=== PATIENT | male | born 2000 | race Caucasian/White ===

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

== ENCOUNTER → 2021-03-11 12:56 | Outpatient (CLI) | payer OTHER, SELFPAY | PROVIDERS: Visit Provider Nurse Practitioner Family | DX: E11.9 Type 2 diabetes mellitus without complications (principal); Z79.4 Long term (current) use of insulin | CPT/HCPCS: 83036 ==

== ENCOUNTER → 2021-06-24 14:17 | Outpatient (CLI) | payer OTHER, SELFPAY ==
[2021-06-24 14:37] LABS: Basophils # 0.1 K/mm3 (0-0.2); Basophils % 0.9 % (0.1-2.0); Eosinophils # 0.1 K/mm3 (0.0-0.4); Hematocrit 47.4 % (42.0-52.0); Hemoglobin 15.5 g/dL (14.1-18.0); Lymphocytes % 37.5 % (10-50); Mean Corpuscular HGB Conc 32.8 g/dL (31.8-35.4); Mean Corpuscular Volume 88.4 fl (80-94); Mean Platelet Volume 9.4 fl (7.4-10.4); Monocytes # 0.2 K/mm3 (0.1-1.0); Monocytes % 4.4 % (1.7-9.3); Neutrophils % 55.3 % (37.0-80.0); Platelet Count 406 K/mm3 (142-424); Red Blood Count 5.36 M/mm3 (4.60-6.20); Red Cell Distribution Width 12.8 % (11.5-17.5); White Blood Count 5.4 K/mm3 (4.5-13.0)
[2021-06-24 14:46] LABS: Chloride 104 mmol/L (98-107)
[2021-06-24 14:47] LABS: Potassium 4.1 mmoL/L (3.5-5.1); Sodium 137 mmol/L (136-145)
[2021-06-24 14:49] LABS: Alanine Aminotransferase 36 U/L (12-78); Anion Gap 17.1 mEq/L (5-15); Aspartate Amino Transferase 40 U/L (17-59); Blood Urea Nitrogen 13 mg/dl (9-20); Carbon Dioxide 20 mmol/L (22.0-30.0); Estimated Glomerular Filt Rate 212 ml/min (>60); GFR (African American) 257 ML/MIN (>60)
[2021-06-24 14:50] LABS: Albumin/Globulin Ratio 1.4 (1.1-1.8); Alkaline Phosphatase 144 U/L (38-126); Bilirubin,Total 0.3 mg/dl (0.2-1.3); Calcium 9.5 mg/dl (8.4-10.2); Cholesterol 248 mg/dl (140-200); Globulin 2.8 g/dL (1.3-3.2); Glucose 308 mg/dl (74-100); HDL Cholesterol 50 mg/dl (40-60); Total Protein,Serum 6.8 g/dl (6.3-8.2); Triglycerides 209 mg/dl (30-150); VLDL Cholesterol 42 mg/dL (0-40)
[2021-06-24 15:01] LABS: Direct LDL Cholesterol 158.82 mg/dL (100-129)
[2021-06-24 15:07] LABS: T4 (Thyroxine) 6.9 ug/dl (5.53-11.0)
[2021-06-24 15:21] LABS: Thyroid Stimulating Hormone 3.27 uIU/mL (0.465-4.68)
[2021-06-24 15:54] LABS: Hemoglobin A1C > 14.0 % (4.0-6.0)
== END ==
PROVIDERS: Visit Provider Nurse Practitioner Family
DX: E10.65 Type 1 diabetes mellitus with hyperglycemia (principal); I10 Essential (primary) hypertension; E66.3 Overweight; Z68.33 Body mass index [BMI] 33.0-33.9, adult; Z79.4 Long term (current) use of insulin
CPT/HCPCS: 80053; 80061; 82306; 83036; 84436; 84443; 85025

== ENCOUNTER → 2021-07-10 12:58 | Outpatient (CLI) | payer OTHER, SELFPAY | PROVIDERS: Visit Provider Nurse Practitioner Family | DX: Z20.822 Contact with and (suspected) exposure to COVID-19 (principal) | CPT/HCPCS: C9803; U0003; U0005 ==

== ENCOUNTER → 2021-08-10 12:48 | Outpatient (CLI) | payer OTHER, SELFPAY | PROVIDERS: PCP Nurse Practitioner Family; Visit Provider Nurse Practitioner | DX: Z20.822 Contact with and (suspected) exposure to COVID-19 (principal) | CPT/HCPCS: C9803; U0003; U0005 ==

== ENCOUNTER 2021-08-20 17:13 | Emergency (ER) | payer OTHER, SELFPAY ==
[2021-08-20 17:29] VITALS: BP 0/0; PULSE 0; RESP 0; TEMP -17.7; TEMP 0; O2SAT 0
== END 2021-08-20 17:30 | disposition home or self-care (01) ==
PROVIDERS: Emergency Provider Nurse Practitioner Family; PCP Emergency Medicine
DX: Z53.21 Procedure and treatment not carried out due to patient leaving prior to being seen by health care provider (principal)

== ENCOUNTER → 2021-08-20 17:29 | Outpatient (CLI) | payer OTHER, SELFPAY | PROVIDERS: PCP Nurse Practitioner Family; Visit Provider Nurse Practitioner Family | DX: U07.1 COVID-19 (principal) | CPT/HCPCS: C9803; U0003; U0005 ==

== ENCOUNTER → 2021-10-21 11:43 | Outpatient (CLI) | payer BC, SELFPAY ==
[2021-10-22 09:39] LABS: Covid-19 Nasal PCR Sendout Lex NOT DETECTED
== END ==
PROVIDERS: PCP Nurse Practitioner Family; Visit Provider Nurse Practitioner
DX: Z20.822 Contact with and (suspected) exposure to COVID-19 (principal)
CPT/HCPCS: C9803; U0004; U0005

== ENCOUNTER 2021-10-31 11:30 | Emergency (ER) | payer OTHER, SELFPAY ==
[2021-10-31 11:38] VITALS: BP 120/84; PULSE 107; RESP 16; TEMP 36.6; O2SAT 99; BMI 33.4
[2021-10-31 11:45] VITALS: BP 120/84; PULSE 107; RESP 16; TEMP 36.6; O2SAT 99; BMI 33.4
--- NOTE | 2021-10-31 12:06 | XR_ITS ---
PROCEDURE INFORMATION: Exam: XR Lumbosacral Spine Exam date and time: 10/31/2021 12:06 PM Age: 21 years old Clinical indication: Low back pain TECHNIQUE: Imaging protocol: XR of the lumbosacral spine. Views: 2 or 3 views. COMPARISON: CR [id number] XR lumbar spine min 4V 12/26/2018 7:46 AM FINDINGS: Bones/joints: Mild scoliosis, concave to the right. Hypoplastic 12th ribs. Mild multilevel spondylosis. Visualized vertebral body heights maintained. Soft tissues: Unremarkable. Gastrointestinal tract: Moderate colonic feces. IMPRESSION: No evidence of an acute fracture. Otherwise, as above.
--- NOTE | 2021-10-31 12:21 | HMH.EDUTC ---
[facility] [place] Clinical Impression: Lumbar strain Qualifiers: Encounter type: initial encounter Qualified Code(s): S39.012A - Strain of muscle, fascia and tendon of lower back, initial encounter Disposition: Home, Self-Care Condition on Discharge: Good Instructions: Low Back Pain (Alternative Therapy), DI for Muscle Strain, DI for Back Strain or Sprain Additional Instructions: rest Ice with cold pack for 20 minutes remove may repeat for comfort every hour Ibuprofen every 6 hours as needed for pain or inflammation. If needs something more you can take Tylenol every 4 hours as needed as long as her primary care has told he was okayed for you to take both. Follow-up immediately if new or worsening symptoms or no noticeable improvement over the next 3-5 days. follow up with pcp Referrals: Chidi Ozuna APRN [Primary Care Provider] - Forms: Work/School Release Time of Disposition: 12:42 Medical Decision Making - Misael Inquiry Pt receiving controlled substance: No Vital Signs: 10/31/21 11:38 10/31/21 11:45 Temperature 97.9 F 97.9 F Temperature Source Oral Oral Pulse Rate [Radial] 107 H 107 H Respiratory Rate 16 16 Blood Pressure [Right Arm] 120/84 120/84 Blood Pressure Mean [Right Arm] 96 96 Blood Pressure Source [Right Arm] Automatic Cuff Blood Pressure Position [Right Arm] Sitting Sitting 02 Sat by Pulse Oximetry 99 99 Oxygen Delivery Method Room Air Room Air Orders (Tests/Meds): ED MEDICATIONS Discontinued Medications Generic Name Dose Route Start Last Admin Trade Name Dougieq PRN Reason Stop Dose Admin Dexamethasone Sodium Phosphate 4 mg 10/31/21 12:31 10/31/21 12:35 Dexamethasone 4mg/Ml 1ml Vial IM 10/31/21 12:32 4 mg ONCE ONE Administration [facility] [place] HPI - General Chief complaint: Urgent Treatment Center Stated complaint: back pain Time Seen by Provider: 10/31/21 12:21 Mode of Arrival: Ambulatory Source of Information: Patient Limitations: No Limitations Description of Symptoms (Recalled from Triage Doc. 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 PT STATES PAIN RADIATES DOWN LEGS INTERMITTENTLY. DENIES ANY LOSS OF CONTROL BOWEL OR BLADDER. CPTA IBUPROFEN 400MG THIS AM HEENT Symptoms (Recalled from RN notes): No Resp Symptoms (Recalled from RN notes): No Skin Symptoms (Recalled from RN notes): No MS Symptoms (Recalled from RN notes): Yes Functional Status (Recalled from RN notes): WNL - History of Present Illness Provider Complaint: 21 yr old male presents for low back pain for 2 weeks. Pt states he was carrying a dresser up stairs and states it was caught and he tuged hard on it and felt something pop in back. pt states pain has increased. no loss of bowel or bladder. - Related Data Home Medications Medication Instructions Recorded Confirmed blood sugar diagnostic See Rx Instructions .ROUTE 02/07/20 10/14/21 .MEDSUPPLY #10 each Previous Rx's Medication Instructions Recorded Albuterol Sulfate [Albuterol HFA 1 - 2 puffs IH Q4-6H PRN #1 inh 12/08/19 Inhaler] Inhaler, Assist Devices [Space 1 each MC Q4-6H 14 Days #1 spacer 12/08/19 Chamber Plus] blood sugar diagnostic See Rx Instructions .ROUTE 02/07/20 .MEDSUPPLY #10 each aspirin 81 mg tablet,delayed 81 mg PO DAILY #30 tab 03/12/20 release blood-glucose meter,continuous See Rx Instructions .ROUTE 07/16/20 .MEDSUPPLY #1 each lancets 30 gauge See Rx Instructions .ROUTE 10/15/20 .COMPLEX #100 each pen needle, diabetic 31 gauge x See Rx Instructions .ROUTE 10/17/20 5/16 .MEDSUPPLY #1200 each blood-glucose sensor See Rx Instructions .ROUTE 08/31/21 .COMPLEX #3 each blood-glucose transmitter See Rx Instructions .ROUTE 08/31/21 .COMPLEX #1 each insulin degludec 100 unit/mL (3 52 unit SQ DAILY #15 ml 08/31/21 mL) subcutaneous pen lisinopril 2.5 mg tablet 2.5 mg PO DAILY #90 tab
[2021-10-31 12:38] VITALS: BP 120/84; PULSE 107; RESP 16; TEMP 36.6; O2SAT 99
== END 2021-10-31 12:49 | disposition home or self-care (01) ==
PROVIDERS: Emergency Provider Nurse Practitioner Family; PCP Nurse Practitioner Family
DX: S39.012A Strain of muscle, fascia and tendon of lower back, initial encounter (principal); X50.0XXA Overexertion from strenuous movement or load, initial encounter; Y92.69 Other specified industrial and construction area as the place of occurrence of the external cause; Y99.0 Civilian activity done for income or pay
CPT/HCPCS: 72100; 96372; 99202; G0463

== ENCOUNTER 2021-11-07 10:05 | Emergency (ER) | payer OTHER, SELFPAY ==
[2021-11-07 11:30] VITALS: BP 145/85; PULSE 95; RESP 18; TEMP 36.5; O2SAT 100; BMI 33.4
--- NOTE | 2021-11-07 11:54 | HMH.EDUTC ---
[facility] [place] Clinical Impression: Hyperglycemia Low back pain Qualifiers: Chronicity: acute Back pain laterality: bilateral Sciatica presence: with sciatica Sciatica laterality: sciatica of right side Qualified Code(s): M54.41 - Lumbago with sciatica, right side Disposition: Still a Patient Condition on Discharge: Fair Referrals: Chidi Ozuna APRN [Primary Care Provider] - Time of Disposition: 13:08 Medical Decision Making - Medical Records Medical records reviewed: No: I reviewed the patient's medical records. - Misael Inquiry Pt receiving controlled substance: No Vital Signs: 11/07/21 11:30 Temperature 97.7 F Temperature Source Oral Pulse Rate [Left] 95 H Respiratory Rate 18 Blood Pressure [Right Arm] 145/85 H Blood Pressure Mean [Right Arm] 105 02 Sat by Pulse Oximetry 100 - Lab Data Lab results reviewed: Yes: I reviewed the patient's lab results. Medical Decision Narrative: His blood glucose here today is 590. Considering this and that his back pain is worsening instead of getting better, he was transferred to the ER for further evaluation. [facility] [place] HPI - General Stated complaint: WC 11/01 back pain Time Seen by Provider: 11/07/21 12:00 Mode of Arrival: Ambulatory Source of Information: Patient Limitations: No Limitations Description of Symptoms (Recalled from Triage Doc. by RN): pt injured his back possibly at work a little over a week ago. pt states he saw Chidi last week and received a steroid injection that helped for about three days. pt reports Chidi told him if he wasn't feeling better to come back in for an MRI. HEENT Symptoms (Recalled from RN notes): No Resp Symptoms (Recalled from RN notes): No Skin Symptoms (Recalled from RN notes): No MS Symptoms (Recalled from RN notes): Yes Functional Status (Recalled from RN notes): wnl - History of Present Illness Provider Complaint: He is back today with woresening low back pain. He originally hurt his back at work 4 days ago. He came here then and received steroids. He states that he is worse instead of better. He was told to f/u for a ct scan or mri if he wasnt getting better. He is a type 1 diabetic. - Related Data Home Medications Medication Instructions Recorded Confirmed blood sugar diagnostic See Rx Instructions .ROUTE 02/07/20 10/14/21 .MEDSUPPLY #10 each Previous Rx's Medication Instructions Recorded Albuterol Sulfate [Albuterol HFA 1 - 2 puffs IH Q4-6H PRN #1 inh 12/08/19 Inhaler] Inhaler, Assist Devices [Space 1 each MC Q4-6H 14 Days #1 spacer 12/08/19 Chamber Plus] blood sugar diagnostic See Rx Instructions .ROUTE 02/07/20 .MEDSUPPLY #10 each aspirin 81 mg tablet,delayed 81 mg PO DAILY #30 tab 03/12/20 release blood-glucose meter,continuous See Rx Instructions .ROUTE 07/16/20 .MEDSUPPLY #1 each lancets 30 gauge See Rx Instructions .ROUTE 10/15/20 .COMPLEX #100 each pen needle, diabetic 31 gauge x See Rx Instructions .ROUTE 10/17/2001/25 .MEDSUPPLY #1200 each blood-glucose sensor See Rx Instructions .ROUTE 08/31/21 .COMPLEX #3 each blood-glucose transmitter See Rx Instructions .ROUTE 08/31/21 .COMPLEX #1 each insulin degludec 100 unit/mL (3 52 unit SQ DAILY #15 ml 08/31/21 mL) subcutaneous pen lisinopril 2.5 mg tablet 2.5 mg PO DAILY #90 tab 08/31/21 insulin aspart 10 unit SQ ACHS 30 Days #15 ml 09/25/21 (niacinamide)(U-100) 100 unit/mL(3 mL) subcutaneous pen Allergies Allergy/AdvReac Type Severity Reaction Status Date / Time No Known Allergies Allergy Verified 10/14/21 14:34 - Worker's Comp Is this a Worker's Comp case?: No [facility] History - Hepatitis A Screen Drug use history?: No High risk sexual behaviors?: No History of sexually transmitted infection?: No Currently employed?: No Childcare worker?: No Do you have indoor plumbing?: Yes Do you have electricity?: Yes Attestation statement:: This patient has been screened for Hepatitis A risk factors.
[2021-11-07 13:07] VITALS: BP 133/93; PULSE 98; TEMP 36.8; O2SAT 99
[2021-11-07 13:20] VITALS: BP 139/90; PULSE 110; RESP 18; TEMP 36.8; O2SAT 97; BMI 33.4
--- NOTE | 2021-11-07 13:38 | HMH.ITSTN ---
lumbar CT came across cancelled from ER so confirmed and not done
--- NOTE | 2021-11-07 13:42 | HMH.EDBACK ---
ED Disposition Clinical Impression: Hyperglycemia Low back pain Qualifiers: Chronicity: acute Back pain laterality: bilateral Sciatica presence: with sciatica Sciatica laterality: sciatica of right side Qualified Code(s): M54.41 - Lumbago with sciatica, right side Sciatica Qualifiers: Laterality: left Qualified Code(s): M54.32 - Sciatica, left side Disposition: Home, Self-Care Condition on Discharge: Good Instructions: DI for Low Back Pain Prescriptions: Ibuprofen [Ibuprofen 800mg Tablet] 800 mg PO TIDP PRN #20 tab PRN Reason: Moderate Pain Transmission Status: Pending to [facility] methocarbamoL [Methocarbamol 500mg Tablet] 1,000 mg PO TID 10 Days #60 tab Transmission Status: Pending to [facility] Referrals: Chidi Ozuna APRN [Primary Care Provider] - - Critical Care Critical Care Time: No Attestation: On 11/07/21, the high probability of a clinically significant, sudden or life threatening deterioration of the following system(s) required my full and direct attention, intervention and personal management. The time I documented below is in addition to time spent performing reported procedures but includes the following listed in this critical care notation. Medical Decision Making - Medical Records Medical records reviewed: Yes: I reviewed the patient's medical records. - Misael Inquiry Pt receiving controlled substance: No Vital Signs: 11/07/21 11:30 11/07/21 13:07 11/07/21 13:20 Temperature 97.7 F 98.3 F 98.3 F Temperature Source Oral Oral Pulse Rate 98 H Pulse Rate [Left] 95 H 110 H Respiratory Rate 18 18 Blood Pressure 133/93 H Blood Pressure [Right Arm] 145/85 H 139/90 Blood Pressure Mean [Right Arm] 105 106 Blood Pressure Source [Right Arm] Automatic Cuff Blood Pressure Position [Right Arm] Sitting 02 Sat by Pulse Oximetry 100 99 97 Oxygen Delivery Method Room Air Room Air Orders (Tests/Meds): ED MEDICATIONS Discontinued Medications Generic Name Dose Route Start Last Admin Trade Name Freq PRN Reason Stop Dose Admin Ketorolac Tromethamine 30 mg 11/07/21 13:27 Ketorolac 30mg/Ml Vial IM 11/07/21 13:28 ONCE ONE Methocarbamol 1,000 mg 11/07/21 13:27 Methocarbamol 500mg Tablet PO 11/07/21 13:28 ONCE STA Medical Decision Narrative: 21-year-old male presenting with some lower back pain elevated blood sugar. Findings are consistent with lumbar strain sciatica. Patient has no midline tenderness or red flag symptoms. Not IV drug user. No fevers. Patient blood sugar did improve he self-administered his medication prior to being transferred over to the emergency department. Patient be placed on a short course of medications. Needs a follow-up with PCP in 48 hours. Given strict return precautions. Verbalized understanding. Back Pain HPI - General Chief Complaint: Back Pain/Injury Stated Complaint: WC 11/01 back pain Time Seen by Provider: 11/07/21 12:00 Mode of Arrival: Ambulatory Source of Information: Patient Limitations: No Limitations Description of Symptoms (Recalled from ER Triage Doc. by RN): Pt sent from [facility] r/t back pain - History of Present Illness HPI Narrative: 21-year-old male presenting with some left lower back pain. Patient states that he has had this for the last 4 days when he was lifting something at work. He had some sharp pain in the left lateral area that is radiating down his leg. Denies any direct trauma. Is worse when he changes positions. He has not been taking anything for the pain. He denies any dysuria or hematuria. No incontinence. Patient was sent over from [facility] because he had elevated blood sugar. The patient states that he drank a regular Mountain Dew right before they checked his blood sugar however. He is not have any headache or change in vision. No focal weakness. No chest pain or shortness of breath. No abdominal pain or vomiting. - Related Data [place]
[2021-11-07 13:53] LABS: POC Glucose,Bedside 377 (70-110)
[2021-11-07 14:32] VITALS: BP 138/88; PULSE 98; RESP 18; TEMP 36.8; O2SAT 99
== END 2021-11-07 14:34 | disposition home or self-care (01) ==
LOC: UTC 13:05 → ER 13:07
PROVIDERS: Emergency Provider Nurse Practitioner Family; PCP Nurse Practitioner Family
DX: M54.42 Lumbago with sciatica, left side (principal); X50.0XXA Overexertion from strenuous movement or load, initial encounter; Y92.69 Other specified industrial and construction area as the place of occurrence of the external cause; Y99.0 Civilian activity done for income or pay; E10.65 Type 1 diabetes mellitus with hyperglycemia; I10 Essential (primary) hypertension
CPT/HCPCS: 82962; 96372; 99281; 99283

== ENCOUNTER 2022-01-09 16:53 | Emergency (ER) | payer OTHER, SELFPAY ==
[2022-01-09 17:05] VITALS: BP 119/86; PULSE 86; RESP 18; TEMP 36.8; O2SAT 100; BMI 33.6
--- NOTE | 2022-01-09 17:24 | HMH.EDUTC ---
[facility] [place] Disposition Clinical Impression: Ingrowing toenail with infection Disposition: Home, Self-Care Condition on Discharge: Good Instructions: DI for Infected Ingrown Toenail, Ingrown Toenail Additional Instructions: Take antibiotics as prescribed Soak foot in warm water and epson salt and pat dry and apply topical cream three times daily Follow up with Family Doctor call Tuesday and make appointment Return if needed Straight to ER if any life threatening symptoms Prescriptions: cephALEXin [cephALEXin 500mg capsule*] 500 mg PO QID 10 Days #40 cap Transmission Status: Pending to [id number] Mupirocin 1 applicatio TP TID 10 Days #10 gm Transmission Status: Pending to [id number] Referrals: Chidi Ozuna APRN [Primary Care Provider] - As needed Time of Disposition: 17:34 Medical Decision Making - Misael Inquiry Pt receiving controlled substance: No Misael was queried for this patient: No Vital Signs: 01/09/22 17:05 Temperature 98.3 F Temperature Source Oral Pulse Rate [Right Brachial] 86 Respiratory Rate 18 Blood Pressure [Right Arm] 119/86 Blood Pressure Mean [Right Arm] 97 Blood Pressure Source [Right Arm] Automatic Cuff Blood Pressure Position [Right Arm] Sitting 02 Sat by Pulse Oximetry 100 Oxygen Delivery Method Room Air [facility] [place] HPI - General Stated complaint: spot on left foot Time Seen by Provider: 01/09/22 17:24 Mode of Arrival: Ambulatory Source of Information: Patient Limitations: No Limitations Description of Symptoms (Recalled from Triage Doc. by RN): PATIENT C/O INGROWN TOE NAIL TO LEFT GREAT TOE X 3 WEEKS HEENT Symptoms (Recalled from RN notes): No Resp Symptoms (Recalled from RN notes): No Skin Symptoms (Recalled from RN notes): Yes MS Symptoms (Recalled from RN notes): No Functional Status (Recalled from RN notes): WNL - History of Present Illness Provider Complaint: Patient states that he has had an ingrown toenail on his left great toe for about 3 weeks that is now red and swollen States that he has been soaking it but not had any improvement and now it is sore and red so he came in State that he is a diabetic and worried about infection - Related Data Home Medications Medication Instructions Recorded Confirmed blood sugar diagnostic See Rx Instructions .ROUTE 02/07/20 10/14/21 .MEDSUPPLY #10 each Previous Rx's Medication Instructions Recorded Albuterol Sulfate [Albuterol HFA 1 - 2 puffs IH Q4-6H PRN #1 inh 12/08/19 Inhaler] Inhaler, Assist Devices [Space 1 each MC Q4-6H 14 Days #1 spacer 12/08/19 Chamber Plus] blood sugar diagnostic See Rx Instructions .ROUTE 02/07/20 .MEDSUPPLY #10 each aspirin 81 mg tablet,delayed 81 mg PO DAILY #30 tab 03/12/20 release blood-glucose meter,continuous See Rx Instructions .ROUTE 07/16/20 .MEDSUPPLY #1 each lancets 30 gauge See Rx Instructions .ROUTE 10/15/20 .COMPLEX #100 each pen needle, diabetic 31 gauge x See Rx Instructions .ROUTE 10/17/2001/25 .MEDSUPPLY #1200 each blood-glucose sensor See Rx Instructions .ROUTE 08/31/21 .COMPLEX #3 each blood-glucose transmitter See Rx Instructions .ROUTE 08/31/21 .COMPLEX #1 each insulin degludec 100 unit/mL (3 52 unit SQ DAILY #15 ml 08/31/21 mL) subcutaneous pen lisinopril 2.5 mg tablet 2.5 mg PO DAILY #90 tab 08/31/21 Ibuprofen [Ibuprofen 800mg 800 mg PO TIDP PRN #20 tab 11/07/21 Tablet] methocarbamoL [Methocarbamol 500mg 1,000 mg PO TID 10 Days #60 tab 11/07/21 Tablet] insulin aspart 10 unit SQ ACHS 30 Days #15 ml 11/17/21 (niacinamide)(U-100) 100 unit/mL(3 mL) subcutaneous pen Mupirocin 1 applicatio TP TID 10 Days #10 gm 01/09/22 cephALEXin [cephALEXin 500mg 500 mg PO QID 10 Days #40 cap 01/09/22 capsule*] Allergies Allergy/AdvReac Type Severity Reaction Status Date / Time No Known Allergies Allergy Verified 10/14/21 14:34 - Worker's Comp Is this a Worker's Comp case?: No [facility] History - Hepatitis A
[2022-01-09 17:35] VITALS: BP 119/86; PULSE 86; RESP 18; TEMP 36.8; O2SAT 100
== END 2022-01-09 17:40 | disposition home or self-care (01) ==
PROVIDERS: Emergency Provider Nurse Practitioner; PCP Nurse Practitioner Family
DX: L60.0 Ingrowing nail (principal); I10 Essential (primary) hypertension; E10.9 Type 1 diabetes mellitus without complications; Z79.1 Long term (current) use of non-steroidal anti-inflammatories (NSAID); Z79.4 Long term (current) use of insulin; Z79.51 Long term (current) use of inhaled steroids; Z79.82 Long term (current) use of aspirin; Z79.899 Other long term (current) drug therapy
CPT/HCPCS: 99213; G0463

== ENCOUNTER → 2022-02-12 09:46 | Outpatient (CLI) | payer OTHER, SELFPAY ==
[2022-02-12 17:19] LABS: Alanine Aminotransferase 79 U/L (12-78); Albumin Level 4.7 g/dl (3.5-5.0); Albumin/Globulin Ratio 1.5 (1.1-1.8); Alkaline Phosphatase 155 U/L (38-126); Anion Gap 17.3 mEq/L (5-15); Aspartate Amino Transferase 81 U/L (17-59); Bilirubin,Total 0.6 mg/dl (0.2-1.3); Blood Urea Nitrogen 8 mg/dl (9-20); Calcium 10.4 mg/dl (8.4-10.2); Carbon Dioxide 22 mmol/L (22.0-30.0); Chloride 100 mmol/L (98-107); Estimated Glomerular Filt Rate 170 ml/min (>60); GFR (African American) 206 ML/MIN (>60); Globulin 3.2 g/dL (1.3-3.2); Glucose 197 mg/dl (74-100); HDL Cholesterol 54 mg/dl (40-60); Potassium 4.3 mmoL/L (3.5-5.1); Sodium 135 mmol/L (136-145); Total Protein,Serum 7.9 g/dl (6.3-8.2); Triglycerides 300 mg/dl (30-150); VLDL Cholesterol 60 mg/dL (0-40)
[2022-02-12 17:20] LABS: Basophils # 0.2 K/mm3 (0-0.2); Basophils % 2.6 % (0.1-2.0); Eosinophils # 0.1 K/mm3 (0.0-0.4); Eosinophils % 1.5 % (0.1-12.0); Hematocrit 52.1 % (42.0-52.0); Hemoglobin 16.9 g/dL (14.1-18.0); Lymphocytes # 2.9 K/mm3 (0.7-4.5); Lymphocytes % 32.7 % (10-50); Mean Corpuscular HGB Conc 32.4 g/dL (31.8-35.4); Mean Corpuscular Hemoglobin 28.7 pg (27.0-31.2); Mean Corpuscular Volume 88.4 fl (80-94); Mean Platelet Volume 8.7 fl (7.4-10.4); Monocytes # 0.5 K/mm3 (0.1-1.0); Monocytes % 5.2 % (1.7-9.3); Neutrophils # 5.1 K/mm3 (1.8-7.8); Platelet Count 499 K/mm3 (142-424); Red Blood Count 5.89 M/mm3 (4.60-6.20); White Blood Count 8.8 K/mm3 (4.8-10.8)
[2022-02-12 17:26] LABS: Chol/HDL Ratio 6.3 (1-3.5); Cholesterol 338 mg/dl (140-200)
[2022-02-12 17:30] LABS: Direct LDL Cholesterol 199.72 mg/dL (100-129)
[2022-02-12 17:36] LABS: T4 (Thyroxine) 8.6 ug/dl (5.53-11.0)
[2022-02-12 17:37] LABS: 25-OH Vitamin D, Total 25.4 ng/mL (30-100)
[2022-02-12 17:50] LABS: Thyroid Stimulating Hormone 5.02 uIU/mL (0.465-4.68)
[2022-02-12 18:12] LABS: Hemoglobin A1C 12.1 % (4.0-6.0)
[2022-02-15 12:20] LABS: C-Peptide <0.1 ng/mL (1.1-4.4)
== END ==
LOC: LAB.DROPOF 03-03 09:49
PROVIDERS: PCP Nurse Practitioner Family; Visit Provider Nurse Practitioner Family
DX: E11.9 Type 2 diabetes mellitus without complications (principal); E55.9 Vitamin D deficiency, unspecified; Z79.4 Long term (current) use of insulin
CPT/HCPCS: 80053; 80061; 82306; 83036; 84436; 84443; 84681; 85025

== ENCOUNTER 2022-09-23 08:55 | Emergency (ER) | payer OTHER, SELFPAY ==
[2022-09-23 09:25] VITALS: BP 143/90; PULSE 110; RESP 19; TEMP 36.8; O2SAT 98; BMI 30.5
--- NOTE | 2022-09-23 09:46 | EXP.UTC ---
Discharge Plan Disposition Patient Disposition: Home, Self-Care Condition: Good Prescriptions Prescriptions: New amoxicillin-pot clavulanate 875-125 mg Tablet 1 tab PO Q12H Qty: 20 0RF pseudoephedrine HCl [Sudafed 12 Hour] 120 mg tablet extended release 120 mg PO Q12H PRN (Reason: nasal congestion) Qty: 20 0RF fluticasone propionate [Flonase Allergy Relief] 50 mcg/actuation spray,suspension 1 spray intranasal DAILY Qty: 16 0RF Rx Instructions: administer into each nostril No Action (DME) blood sugar diagnostic Strip See Rx Instructions .ROUTE .MEDSUPPLY Qty: 10 Label Comments: USE TO test 4 TO 6 times PER DAY DIRECTED Rx Instructions: As directed (DME) blood sugar diagnostic [Accu-Chek Guide test strips] Strip See Rx Instructions .ROUTE .MEDSUPPLY Qty: 10 8RF Rx Instructions: As directed Tresiba FlexTouch U-100 100 unit/mL (3 mL) insulin pen 52 unit SQ DAILY Qty: 15 4RF (DME) Dexcom G6 Transmitter Device See Rx Instructions .ROUTE .COMPLEX Qty: 1 1RF Dose Instruction: USE DIRECTED TO TEST BLOOD GLUCOSE LEVEL Rx Instructions: USE DIRECTED TO TEST BLOOD GLUCOSE LEVEL (DME) Dexcom G6 Sensor Device See Rx Instructions .ROUTE .COMPLEX Qty: 3 0RF Dose Instruction: USE DIRECTED TO TEST BLOOD GLUCOSE LEVEL Rx Instructions: USE DIRECTED TO TEST BLOOD GLUCOSE LEVEL lisinopril 2.5 mg tablet 2.5 mg PO DAILY Qty: 90 0RF trazodone 50 mg tablet 50 mg PO HS PRN (Reason: insomnia) Qty: 10 0RF aspirin [Aspir-81] 81 mg tablet,delayed release (DR/EC) 81 mg PO DAILY Qty: 30 2RF (DME) Dexcom G6 Concessions Manager Misc See Rx Instructions .ROUTE .MEDSUPPLY Qty: 1 0RF Rx Instructions: As directed lidocaine (PF) 20 mg/mL (2 %) solution 50 mg peripheral nerve block ONCE Qty: 2.5 0RF (DME) lancets [OneTouch Delica Plus Lancet] 30 gauge misc See Rx Instructions .ROUTE .COMPLEX Qty: 100 5RF Dose Instruction: USE TO test blood DIRECTED Rx Instructions: USE TO test blood DIRECTED (DME) pen needle, diabetic [Comfort EZ Pen [place]] 31 gauge x 5/16 needle See Rx Instructions .ROUTE .MEDSUPPLY Qty: 1200 0RF Rx Instructions: As directed Fiasp FlexTouch U-100 Insulin 100 unit/mL (3 mL) insulin pen 20 unit SQ ACHS 30 Days Qty: 15 2RF ergocalciferol (vitamin D2) 1,250 mcg (50,000 unit) capsule 50,000 unit PO QWEEK Qty: 4 0RF (DME) inhalational spacing device 1 EACH spacer 1 each MC Q4-6H 14 Days Qty: 1 0RF albuterol sulfate 18 GM HFA aerosol inhaler 1 - 2 puffs IH Q4-6H PRN (Reason: Shortness Of Breath Or Wheezing) Qty: 1 0RF cephalexin 500 MG capsule 500 mg PO QID 10 Days Qty: 40 0RF mupirocin 1 GM ointment 1 applicatio TP TID 10 Days Qty: 10 0RF Rx Instructions: apply around the toenail on left great toe methocarbamol 500 MG tablet 1,000 mg PO TID 10 Days Qty: 60 0RF ibuprofen 800 MG tablet 800 mg PO TIDP PRN (Reason: Moderate Pain) Qty: 20 0RF Referrals Follow up/Referrals: Chidi Ozuna APRN [Primary Care Provider] - See instructions Activity Restrictions/Add. Instructions Additional Instructions/Restrictions: *Monitor Temp, Over the counter Motrin or Tylenol as directed/as needed Tylenol every 4 hours and Motrin every 6 hours (as long as your family doctor has told you that you can take it) for fever or pain. and straight to ER if unable to lower temp less than 101.0 after medication given *Warm salt water gargles may help to soothe the throat *Throat Lozenges? *Warm fluids like tea with honey may help to soothe the throat? *Sleep elevated *Humidifier/Vaporizer *Flonase 2 sprays in each nostril daily but be aware that it may take 2-3 days before you notice improvement Follow up IMMEDIATELY for new or worsening symptoms or no Noticeable improvement over the next 48-72 hours. 911 for diffic
[2022-09-23 09:57] LABS: UTC Influenza A Antigen Negative (Negative); UTC Influenza B Antigen Negative (Negative)
[2022-09-23 10:11] VITALS: BP 143/90; PULSE 110; RESP 19; TEMP 36.8; O2SAT 98
== END 2022-09-23 10:14 | disposition home or self-care (01) ==
PROVIDERS: Emergency Provider Nurse Practitioner; PCP Nurse Practitioner Family
DX: J32.9 Chronic sinusitis, unspecified (principal)
CPT/HCPCS: 87804; 99212; 99213; G0463

== ENCOUNTER 2023-01-08 12:44 | Emergency (ER) | payer OTHER, SELFPAY ==
[2023-01-08 12:50] VITALS: BP 141/84; PULSE 108; RESP 16; TEMP 36.8; O2SAT 98; BMI 29.3
--- NOTE | 2023-01-08 12:56 | EXP.UTC ---
Discharge Plan Disposition Patient Disposition: Home, Self-Care Condition: Good Prescriptions Prescriptions: New ondansetron 4 mg tablet,disintegrating 4 mg PO Q8H PRN (Reason: nausea and vomiting) Qty: 14 0RF No Action (DME) blood sugar diagnostic Strip See Rx Instructions .ROUTE .MEDSUPPLY Qty: 10 Label Comments: USE TO test 4 TO 6 times PER DAY DIRECTED Rx Instructions: As directed (DME) blood sugar diagnostic [Accu-Chek Guide test strips] Strip See Rx Instructions .ROUTE .MEDSUPPLY Qty: 10 8RF Rx Instructions: As directed Tresiba FlexTouch U-100 100 unit/mL (3 mL) insulin pen 52 unit SQ DAILY Qty: 15 4RF (DME) Dexcom G6 Transmitter Device See Rx Instructions .ROUTE .COMPLEX Qty: 1 1RF Dose Instruction: USE DIRECTED TO TEST BLOOD GLUCOSE LEVEL Rx Instructions: USE DIRECTED TO TEST BLOOD GLUCOSE LEVEL (DME) Dexcom G6 Sensor Device See Rx Instructions .ROUTE .COMPLEX Qty: 3 0RF Dose Instruction: USE DIRECTED TO TEST BLOOD GLUCOSE LEVEL Rx Instructions: USE DIRECTED TO TEST BLOOD GLUCOSE LEVEL lisinopril 2.5 mg tablet 2.5 mg PO DAILY Qty: 90 0RF trazodone 50 mg tablet 50 mg PO HS PRN (Reason: insomnia) Qty: 10 0RF aspirin [Aspir-81] 81 mg tablet,delayed release (DR/EC) 81 mg PO DAILY Qty: 30 2RF (DME) Dexcom G6 Medical Billing And Coding Specialist Misc See Rx Instructions .ROUTE .MEDSUPPLY Qty: 1 0RF Rx Instructions: As directed lidocaine (PF) 20 mg/mL (2 %) solution 50 mg peripheral nerve block ONCE Qty: 2.5 0RF (DME) lancets [OneTouch Delica Plus Lancet] 30 gauge misc See Rx Instructions .ROUTE .COMPLEX Qty: 100 5RF Dose Instruction: USE TO test blood DIRECTED Rx Instructions: USE TO test blood DIRECTED (DME) pen needle, diabetic [Comfort EZ Pen [place]] 31 gauge x 5/16 needle See Rx Instructions .ROUTE .MEDSUPPLY Qty: 1200 0RF Rx Instructions: As directed Fiasp FlexTouch U-100 Insulin 100 unit/mL (3 mL) insulin pen 20 unit SQ ACHS 30 Days Qty: 15 2RF ergocalciferol (vitamin D2) 1,250 mcg (50,000 unit) capsule 50,000 unit PO QWEEK Qty: 4 0RF (DME) inhalational spacing device 1 EACH spacer 1 each MC Q4-6H 14 Days Qty: 1 0RF albuterol sulfate 18 GM HFA aerosol inhaler 1 - 2 puffs IH Q4-6H PRN (Reason: Shortness Of Breath Or Wheezing) Qty: 1 0RF cephalexin 500 MG capsule 500 mg PO QID 10 Days Qty: 40 0RF mupirocin 1 GM ointment 1 applicatio TP TID 10 Days Qty: 10 0RF Rx Instructions: apply around the toenail on left great toe methocarbamol 500 MG tablet 1,000 mg PO TID 10 Days Qty: 60 0RF ibuprofen 800 MG tablet 800 mg PO TIDP PRN (Reason: Moderate Pain) Qty: 20 0RF amoxicillin-pot clavulanate 875-125 mg Tablet 1 tab PO Q12H Qty: 20 0RF pseudoephedrine HCl [Sudafed 12 Hour] 120 mg tablet extended release 120 mg PO Q12H PRN (Reason: nasal congestion) Qty: 20 0RF fluticasone propionate [Flonase Allergy Relief] 50 mcg/actuation spray,suspension 1 spray intranasal DAILY Qty: 16 0RF Rx Instructions: administer into each nostril Referrals Follow up/Referrals: Chidi Ozuna APRN [Primary Care Provider] - See instructions Activity Restrictions/Add. Instructions Additional Instructions/Restrictions: Monitor temperature. Seek treatment if fever develops. Follow-up immediately if new or worse symptoms worsen or no noticeable improvement over 48 hours. Increase fluids such as water, Gatorade, Powerade, juice or Pedialyte with limited formula/dietary in children No food is okay as long as you are drinking. Once ready to eat start bland such as bananas, rice, applesauce, toast. Contagious until no diarrhea, vomiting, fever times 48 hours without medication Avoid antidiarrheals unless told otherwise. Best to let the virus run its course. Follow-up immediately for new or worsening symptoms or no noticeable impro
[2023-01-08 13:15] VITALS: BP 141/84; PULSE 108; RESP 16; TEMP 36.8
== END 2023-01-08 13:16 | disposition home or self-care (01) ==
PROVIDERS: Emergency Provider Nurse Practitioner Family; PCP Nurse Practitioner Family
DX: R11.2 Nausea with vomiting, unspecified (principal); R19.7 Diarrhea, unspecified; E10.9 Type 1 diabetes mellitus without complications; Z79.4 Long term (current) use of insulin
CPT/HCPCS: 99212; 99214; G0463

== ENCOUNTER 2023-04-16 10:41 | Emergency (ER) | payer OTHER, SELFPAY ==
[2023-04-16 10:50] VITALS: BP 106/73; PULSE 89; RESP 18; TEMP 37; O2SAT 98; BMI 32.5
--- NOTE | 2023-04-16 10:58 | EXP.UTC ---
Discharge Plan Disposition Patient Disposition: Home, Self-Care Condition: Good Prescriptions Prescriptions: New ondansetron 4 mg tablet,disintegrating 4 mg PO Q8H PRN (Reason: nausea and vomiting) Qty: 14 0RF No Action (DME) blood sugar diagnostic Strip See Rx Instructions .ROUTE .MEDSUPPLY Qty: 10 Patient Comments: USE TO test 4 TO 6 times PER DAY DIRECTED Rx Instructions: As directed (DME) blood sugar diagnostic [Accu-Chek Guide test strips] Strip See Rx Instructions .ROUTE .MEDSUPPLY Qty: 10 8RF Rx Instructions: As directed Tresiba FlexTouch U-100 100 unit/mL (3 mL) insulin pen 52 unit SQ DAILY Qty: 15 4RF (DME) Dexcom G6 Transmitter Device See Rx Instructions .ROUTE .COMPLEX Qty: 1 1RF Dose Instruction: USE DIRECTED TO TEST BLOOD GLUCOSE LEVEL Rx Instructions: USE DIRECTED TO TEST BLOOD GLUCOSE LEVEL (DME) Dexcom G6 Sensor Device See Rx Instructions .ROUTE .COMPLEX Qty: 3 0RF Dose Instruction: USE DIRECTED TO TEST BLOOD GLUCOSE LEVEL Rx Instructions: USE DIRECTED TO TEST BLOOD GLUCOSE LEVEL lisinopril 2.5 mg tablet 2.5 mg PO DAILY Qty: 90 0RF trazodone 50 mg tablet 50 mg PO HS PRN (Reason: insomnia) Qty: 10 0RF aspirin [Aspir-81] 81 mg tablet,delayed release (DR/EC) 81 mg PO DAILY Qty: 30 2RF (DME) Dexcom G6 Head Of Precision Targeting Misc See Rx Instructions .ROUTE .MEDSUPPLY Qty: 1 0RF Rx Instructions: As directed lidocaine (PF) 20 mg/mL (2 %) solution 50 mg peripheral nerve block ONCE Qty: 2.5 0RF (DME) lancets [OneTouch Delica Plus Lancet] 30 gauge misc See Rx Instructions .ROUTE .COMPLEX Qty: 100 5RF Dose Instruction: USE TO test blood DIRECTED Rx Instructions: USE TO test blood DIRECTED (DME) pen needle, diabetic [Comfort EZ Pen [place]] 31 gauge x 5/16 needle See Rx Instructions .ROUTE .MEDSUPPLY Qty: 1200 0RF Rx Instructions: As directed Fiasp FlexTouch U-100 Insulin 100 unit/mL (3 mL) insulin pen 20 unit SQ ACHS 30 Days Qty: 15 2RF ergocalciferol (vitamin D2) 1,250 mcg (50,000 unit) capsule 50,000 unit PO QWEEK Qty: 4 0RF (DME) inhalational spacing device 1 EACH spacer 1 each MC Q4-6H 14 Days Qty: 1 0RF albuterol sulfate 18 GM HFA aerosol inhaler 1 - 2 puffs IH Q4-6H PRN (Reason: Shortness Of Breath Or Wheezing) Qty: 1 0RF cephalexin 500 MG capsule 500 mg PO QID 10 Days Qty: 40 0RF mupirocin 1 GM ointment 1 applicatio TP TID 10 Days Qty: 10 0RF Rx Instructions: apply around the toenail on left great toe ondansetron 4 mg tablet,disintegrating 4 mg PO Q8H PRN (Reason: nausea and vomiting) Qty: 14 0RF methocarbamol 500 MG tablet 1,000 mg PO TID 10 Days Qty: 60 0RF ibuprofen 800 MG tablet 800 mg PO TIDP PRN (Reason: Moderate Pain) Qty: 20 0RF amoxicillin-pot clavulanate 875-125 mg Tablet 1 tab PO Q12H Qty: 20 0RF pseudoephedrine HCl [Sudafed 12 Hour] 120 mg tablet extended release 120 mg PO Q12H PRN (Reason: nasal congestion) Qty: 20 0RF fluticasone propionate [Flonase Allergy Relief] 50 mcg/actuation spray,suspension 1 spray intranasal DAILY Qty: 16 0RF Rx Instructions: administer into each nostril Referrals Follow up/Referrals: Chidi Ozuna APRN [Primary Care Provider] - See instructions Activity Restrictions/Add. Instructions Additional Instructions/Restrictions: Monitor temperature. Seek treatment if fever develops. Follow-up immediately if new or worse symptoms worsen or no noticeable improvement over 48 hours. Increase fluids such as water, Gatorade, Powerade, juice or Pedialyte with limited formula/dietary in children No food is okay as long as you are drinking. Once ready to eat start bland such as bananas, rice, applesauce, toast. Contagious until no diarrhea, vomiting, fever times 48 hours without medication Avoid antidiarrheals unless told otherwise. Best t
[2023-04-16 11:04] VITALS: BP 106/73; PULSE 89; RESP 18; TEMP 37; O2SAT 98
== END 2023-04-16 11:15 | disposition home or self-care (01) ==
PROVIDERS: Emergency Provider Nurse Practitioner Family; PCP Nurse Practitioner Family
DX: R11.2 Nausea with vomiting, unspecified (principal); R19.7 Diarrhea, unspecified; R53.1 Weakness; E10.9 Type 1 diabetes mellitus without complications; Z79.4 Long term (current) use of insulin
CPT/HCPCS: 99212; 99214; G0463

== ENCOUNTER 2023-05-06 09:37 | Emergency (ER) | payer OTHER, SELFPAY ==
[2023-05-06 09:37] VITALS: BP 131/81; PULSE 101; RESP 18; TEMP 36.9; O2SAT 98; BMI 32.9
--- NOTE | 2023-05-06 10:03 | EXP.UTC ---
Discharge Plan Disposition Patient Disposition: Home, Self-Care Condition: Good Prescriptions Prescriptions: New [id number] [Bromfed DM] 2-30-10 mg/5 mL Syrup 5 ml PO Q6H PRN (Reason: Cough) Qty: 240 0RF ondansetron 4 mg Tablet,Disintegrating 4 mg PO Q8H PRN (Reason: Nausea) Qty: 12 0RF No Action (DME) blood sugar diagnostic Strip See Rx Instructions .ROUTE .MEDSUPPLY Qty: 10 Patient Comments: USE TO test 4 TO 6 times PER DAY DIRECTED Rx Instructions: As directed (DME) blood sugar diagnostic [Accu-Chek Guide test strips] Strip See Rx Instructions .ROUTE .MEDSUPPLY Qty: 10 8RF Rx Instructions: As directed Tresiba FlexTouch U-100 100 unit/mL (3 mL) insulin pen 52 unit SQ DAILY Qty: 15 4RF (DME) Dexcom G6 Transmitter Device See Rx Instructions .ROUTE .COMPLEX Qty: 1 1RF Dose Instruction: USE DIRECTED TO TEST BLOOD GLUCOSE LEVEL Rx Instructions: USE DIRECTED TO TEST BLOOD GLUCOSE LEVEL (DME) Dexcom G6 Sensor Device See Rx Instructions .ROUTE .COMPLEX Qty: 3 0RF Dose Instruction: USE DIRECTED TO TEST BLOOD GLUCOSE LEVEL Rx Instructions: USE DIRECTED TO TEST BLOOD GLUCOSE LEVEL lisinopril 2.5 mg tablet 2.5 mg PO DAILY Qty: 90 0RF trazodone 50 mg tablet 50 mg PO HS PRN (Reason: insomnia) Qty: 10 0RF aspirin [Aspir-81] 81 mg tablet,delayed release (DR/EC) 81 mg PO DAILY Qty: 30 2RF (DME) Dexcom G6 Wardrobe Image Consultant Misc See Rx Instructions .ROUTE .MEDSUPPLY Qty: 1 0RF Rx Instructions: As directed lidocaine (PF) 20 mg/mL (2 %) solution 50 mg peripheral nerve block ONCE Qty: 2.5 0RF (DME) lancets [OneTouch Delica Plus Lancet] 30 gauge misc See Rx Instructions .ROUTE .COMPLEX Qty: 100 5RF Dose Instruction: USE TO test blood DIRECTED Rx Instructions: USE TO test blood DIRECTED (DME) pen needle, diabetic [Comfort EZ Pen [place]] 31 gauge x 5/16 needle See Rx Instructions .ROUTE .MEDSUPPLY Qty: 1200 0RF Rx Instructions: As directed Fiasp FlexTouch U-100 Insulin 100 unit/mL (3 mL) insulin pen 20 unit SQ ACHS 30 Days Qty: 15 2RF ergocalciferol (vitamin D2) 1,250 mcg (50,000 unit) capsule 50,000 unit PO QWEEK Qty: 4 0RF (DME) inhalational spacing device 1 EACH spacer 1 each MC Q4-6H 14 Days Qty: 1 0RF albuterol sulfate 18 GM HFA aerosol inhaler 1 - 2 puffs IH Q4-6H PRN (Reason: Shortness Of Breath Or Wheezing) Qty: 1 0RF cephalexin 500 MG capsule 500 mg PO QID 10 Days Qty: 40 0RF mupirocin 1 GM ointment 1 applicatio TP TID 10 Days Qty: 10 0RF Rx Instructions: apply around the toenail on left great toe ondansetron 4 mg tablet,disintegrating 4 mg PO Q8H PRN (Reason: nausea and vomiting) Qty: 14 0RF methocarbamol 500 MG tablet 1,000 mg PO TID 10 Days Qty: 60 0RF ibuprofen 800 MG tablet 800 mg PO TIDP PRN (Reason: Moderate Pain) Qty: 20 0RF amoxicillin-pot clavulanate 875-125 mg Tablet 1 tab PO Q12H Qty: 20 0RF pseudoephedrine HCl [Sudafed 12 Hour] 120 mg tablet extended release 120 mg PO Q12H PRN (Reason: nasal congestion) Qty: 20 0RF fluticasone propionate [Flonase Allergy Relief] 50 mcg/actuation spray,suspension 1 spray intranasal DAILY Qty: 16 0RF Rx Instructions: administer into each nostril ondansetron 4 mg tablet,disintegrating 4 mg PO Q8H PRN (Reason: nausea and vomiting) Qty: 14 0RF Referrals Follow up/Referrals: Chidi Ozuna APRN [Primary Care Provider] - See instructions Activity Restrictions/Add. Instructions Additional Instructions/Restrictions: Drink plenty of fluids. Take tylenol or ibuprofen for pain or fever. Take the medications as directed. Follow up with your regular doctor. GO TO THE ER FOR ANY WORSENING SYMPTOMS Clinical Impressions Clinical Impression: Acute viral syndrome, Exposure to 2019 novel coronavirus Sta
[2023-05-06 10:38] VITALS: BP 131/81; PULSE 101; RESP 18; TEMP 36.9; O2SAT 98
== END 2023-05-06 10:38 | disposition home or self-care (01) ==
PROVIDERS: Emergency Provider Nurse Practitioner Family; PCP Nurse Practitioner Family
DX: R50.9 Fever, unspecified (principal); R05.9 Cough, unspecified; R19.7 Diarrhea, unspecified; R07.0 Pain in throat; E10.9 Type 1 diabetes mellitus without complications; Z79.4 Long term (current) use of insulin; B34.9 Viral infection, unspecified
CPT/HCPCS: 99212; 99214; G0463

== ENCOUNTER 2023-05-28 15:16 | Emergency (ER) | payer OTHER, SELFPAY ==
[2023-05-28 15:16] VITALS: BP 114/75; PULSE 91; RESP 19; TEMP 37.2; O2SAT 98; BMI 31.4
--- NOTE | 2023-05-28 15:37 | EXP.UTC ---
Discharge Plan Disposition Patient Disposition: Home, Self-Care Condition: Good Prescriptions Prescriptions: New azithromycin [azithromycin] 250 mg tablet 250 mg PO DIRECTED Qty: 6 0RF Rx Instructions: Take two (2) tablets on day #1, then one (1) tablet day #2 thru #5 fluticasone propionate [fluticasone propionate] 50 mcg/actuation spray,suspension 1 spray intranasal DAILY Qty: 9.9 0RF loratadine [Claritin] 10 mg tablet 10 mg PO DAILY Qty: 30 0RF No Action (DME) blood sugar diagnostic Strip See Rx Instructions .ROUTE .MEDSUPPLY Qty: 10 Patient Comments: USE TO test 4 TO 6 times PER DAY DIRECTED Rx Instructions: As directed (DME) blood sugar diagnostic [Accu-Chek Guide test strips] Strip See Rx Instructions .ROUTE .MEDSUPPLY Qty: 10 8RF Rx Instructions: As directed Tresiba FlexTouch U-100 100 unit/mL (3 mL) insulin pen 52 unit SQ DAILY Qty: 15 4RF (DME) Dexcom G6 Transmitter Device See Rx Instructions .ROUTE .COMPLEX Qty: 1 1RF Dose Instruction: USE DIRECTED TO TEST BLOOD GLUCOSE LEVEL Rx Instructions: USE DIRECTED TO TEST BLOOD GLUCOSE LEVEL (DME) Dexcom G6 Sensor Device See Rx Instructions .ROUTE .COMPLEX Qty: 3 0RF Dose Instruction: USE DIRECTED TO TEST BLOOD GLUCOSE LEVEL Rx Instructions: USE DIRECTED TO TEST BLOOD GLUCOSE LEVEL lisinopril 2.5 mg tablet 2.5 mg PO DAILY Qty: 90 0RF trazodone 50 mg tablet 50 mg PO HS PRN (Reason: insomnia) Qty: 10 0RF aspirin [Aspir-81] 81 mg tablet,delayed release (DR/EC) 81 mg PO DAILY Qty: 30 2RF (DME) Dexcom G6 Gauge And Weigh Machine Adjuster Misc See Rx Instructions .ROUTE .MEDSUPPLY Qty: 1 0RF Rx Instructions: As directed lidocaine (PF) 20 mg/mL (2 %) solution 50 mg peripheral nerve block ONCE Qty: 2.5 0RF (DME) lancets [OneTouch Delica Plus Lancet] 30 gauge misc See Rx Instructions .ROUTE .COMPLEX Qty: 100 5RF Dose Instruction: USE TO test blood DIRECTED Rx Instructions: USE TO test blood DIRECTED (DME) pen needle, diabetic [Comfort EZ Pen [place]] 31 gauge x 5/16 needle See Rx Instructions .ROUTE .MEDSUPPLY Qty: 1200 0RF Rx Instructions: As directed Fiasp FlexTouch U-100 Insulin 100 unit/mL (3 mL) insulin pen 20 unit SQ ACHS 30 Days Qty: 15 2RF ergocalciferol (vitamin D2) 1,250 mcg (50,000 unit) capsule 50,000 unit PO QWEEK Qty: 4 0RF (DME) inhalational spacing device 1 EACH spacer 1 each MC Q4-6H 14 Days Qty: 1 0RF albuterol sulfate 18 GM HFA aerosol inhaler 1 - 2 puffs IH Q4-6H PRN (Reason: Shortness Of Breath Or Wheezing) Qty: 1 0RF cephalexin 500 MG capsule 500 mg PO QID 10 Days Qty: 40 0RF mupirocin 1 GM ointment 1 applicatio TP TID 10 Days Qty: 10 0RF Rx Instructions: apply around the toenail on left great toe ondansetron 4 mg tablet,disintegrating 4 mg PO Q8H PRN (Reason: nausea and vomiting) Qty: 14 0RF methocarbamol 500 MG tablet 1,000 mg PO TID 10 Days Qty: 60 0RF ibuprofen 800 MG tablet 800 mg PO TIDP PRN (Reason: Moderate Pain) Qty: 20 0RF amoxicillin-pot clavulanate 875-125 mg Tablet 1 tab PO Q12H Qty: 20 0RF pseudoephedrine HCl [Sudafed 12 Hour] 120 mg tablet extended release 120 mg PO Q12H PRN (Reason: nasal congestion) Qty: 20 0RF fluticasone propionate [Flonase Allergy Relief] 50 mcg/actuation spray,suspension 1 spray intranasal DAILY Qty: 16 0RF Rx Instructions: administer into each nostril ondansetron 4 mg tablet,disintegrating 4 mg PO Q8H PRN (Reason: nausea and vomiting) Qty: 14 0RF [id number] [Bromfed DM] 2-30-10 mg/5 mL Syrup 5 ml PO Q6H PRN (Reason: Cough) Qty: 240 0RF ondansetron 4 mg Tablet,Disintegrating 4 mg PO Q8H PRN (Reason: Nausea) Qty: 12 0RF Referrals Follow up/Referrals: Chidi Ozuna APRN [Primary Care Provider] - See instructions Activity Restrict
[2023-05-28 15:43] LABS: UTC Strep Screen (Rapid) Negative (Negative)
[2023-05-28 15:51] VITALS: BP 114/75; PULSE 91; RESP 19; TEMP 37.2; O2SAT 98
== END 2023-05-28 15:51 | disposition home or self-care (01) ==
PROVIDERS: Emergency Provider Nurse Practitioner Family; PCP Nurse Practitioner Family
DX: J01.90 Acute sinusitis, unspecified (principal); B96.89 Other specified bacterial agents as the cause of diseases classified elsewhere; H66.001 Acute suppurative otitis media without spontaneous rupture of ear drum, right ear; R19.7 Diarrhea, unspecified; E10.9 Type 1 diabetes mellitus without complications; Z79.4 Long term (current) use of insulin
CPT/HCPCS: 87880; 99212; 99214; G0463

== ENCOUNTER 2023-05-30 15:50 | Emergency (ER) | payer OTHER, SELFPAY ==
--- NOTE | 2023-05-30 15:57 | EXP.UTC ---
Discharge Plan Disposition Patient Disposition: Home, Self-Care Condition: Good Prescriptions Prescriptions: New promethazine 25 mg tablet 25 mg PO TID PRN (Reason: nausea and vomiting) Qty: 20 0RF No Action (DME) blood sugar diagnostic Strip See Rx Instructions .ROUTE .MEDSUPPLY Qty: 10 Patient Comments: USE TO test 4 TO 6 times PER DAY DIRECTED Rx Instructions: As directed (DME) blood sugar diagnostic [Accu-Chek Guide test strips] Strip See Rx Instructions .ROUTE .MEDSUPPLY Qty: 10 8RF Rx Instructions: As directed Tresiba FlexTouch U-100 100 unit/mL (3 mL) insulin pen 52 unit SQ DAILY Qty: 15 4RF (DME) Dexcom G6 Transmitter Device See Rx Instructions .ROUTE .COMPLEX Qty: 1 1RF Dose Instruction: USE DIRECTED TO TEST BLOOD GLUCOSE LEVEL Rx Instructions: USE DIRECTED TO TEST BLOOD GLUCOSE LEVEL (DME) Dexcom G6 Sensor Device See Rx Instructions .ROUTE .COMPLEX Qty: 3 0RF Dose Instruction: USE DIRECTED TO TEST BLOOD GLUCOSE LEVEL Rx Instructions: USE DIRECTED TO TEST BLOOD GLUCOSE LEVEL lisinopril 2.5 mg tablet 2.5 mg PO DAILY Qty: 90 0RF trazodone 50 mg tablet 50 mg PO HS PRN (Reason: insomnia) Qty: 10 0RF aspirin [Aspir-81] 81 mg tablet,delayed release (DR/EC) 81 mg PO DAILY Qty: 30 2RF (DME) Dexcom G6 Web Site Administrator Misc See Rx Instructions .ROUTE .MEDSUPPLY Qty: 1 0RF Rx Instructions: As directed lidocaine (PF) 20 mg/mL (2 %) solution 50 mg peripheral nerve block ONCE Qty: 2.5 0RF (DME) lancets [OneTouch Delica Plus [place]] 30 gauge misc See Rx Instructions .ROUTE .COMPLEX Qty: 100 5RF Dose Instruction: USE TO test blood DIRECTED Rx Instructions: USE TO test blood DIRECTED (DME) pen needle, diabetic [Comfort EZ Pen [place]] 31 gauge x 5/16 needle See Rx Instructions .ROUTE .MEDSUPPLY Qty: 1200 0RF Rx Instructions: As directed Fiasp FlexTouch U-100 Insulin 100 unit/mL (3 mL) insulin pen 20 unit SQ ACHS 30 Days Qty: 15 2RF ergocalciferol (vitamin D2) 1,250 mcg (50,000 unit) capsule 50,000 unit PO QWEEK Qty: 4 0RF (DME) inhalational spacing device 1 EACH spacer 1 each MC Q4-6H 14 Days Qty: 1 0RF albuterol sulfate 18 GM HFA aerosol inhaler 1 - 2 puffs IH Q4-6H PRN (Reason: Shortness Of Breath Or Wheezing) Qty: 1 0RF cephalexin 500 MG capsule 500 mg PO QID 10 Days Qty: 40 0RF mupirocin 1 GM ointment 1 applicatio TP TID 10 Days Qty: 10 0RF Rx Instructions: apply around the toenail on left great toe ondansetron 4 mg tablet,disintegrating 4 mg PO Q8H PRN (Reason: nausea and vomiting) Qty: 14 0RF azithromycin [azithromycin] 250 mg tablet 250 mg PO DIRECTED Qty: 6 0RF Rx Instructions: Take two (2) tablets on day #1, then one (1) tablet day #2 thru #5 fluticasone propionate [fluticasone propionate] 50 mcg/actuation spray,suspension 1 spray intranasal DAILY Qty: 9.9 0RF loratadine [Claritin] 10 mg tablet 10 mg PO DAILY Qty: 30 0RF methocarbamol 500 MG tablet 1,000 mg PO TID 10 Days Qty: 60 0RF ibuprofen 800 MG tablet 800 mg PO TIDP PRN (Reason: Moderate Pain) Qty: 20 0RF amoxicillin-pot clavulanate 875-125 mg Tablet 1 tab PO Q12H Qty: 20 0RF pseudoephedrine HCl [Sudafed 12 Hour] 120 mg tablet extended release 120 mg PO Q12H PRN (Reason: nasal congestion) Qty: 20 0RF fluticasone propionate [Flonase Allergy Relief] 50 mcg/actuation spray,suspension 1 spray intranasal DAILY Qty: 16 0RF Rx Instructions: administer into each nostril ondansetron 4 mg tablet,disintegrating 4 mg PO Q8H PRN (Reason: nausea and vomiting) Qty: 14 0RF [id number]-zjyjaihti-BM [Bromfed DM] 2-30-10 mg/5 mL Syrup 5 ml PO Q6H PRN (Reason: Cough) Qty: 240 0RF ondansetron 4 mg Tablet,Disintegrating 4 mg PO Q8H PRN (Reason: Nausea) Qty: 12 0RF Referrals Follow up/Ref
[2023-05-30 16:00] VITALS: BP 130/79; PULSE 109; RESP 18; TEMP 36.6; O2SAT 99; BMI 31.6
[2023-05-30 16:49] VITALS: BP 130/79; PULSE 109; RESP 18; TEMP 36.6; O2SAT 99
[2023-05-30 16:59] LABS: Adenovirus,PCR Not Detected (NotDetected); Bordetella Pertussis Not Detected (NotDetected); Chlamydophila Pneumoniae, PCR Not Detected (NotDetected); Coronavirus 19, PCR Not Detected (NotDetected); Coronavirus 229E Not Detected (NotDetected); Coronavirus NL63 Not Detected (NotDetected); Coronavirus OC43 Not Detected (NotDetected); Coronovirus HKU1,PCR Not Detected (NotDetected); Human Metapneumovirus Not Detected (NotDetected); Influenza A, PCR Not Detected (NotDetected); Influenza AH1, 2009 Not Detected (NotDetected); Influenza AH1, PCR Not Detected (NotDetected); Influenza AH3,PCR Not Detected (NotDetected); Influenza B, PCR Not Detected (NotDetected); Mycoplasma Pneumoniae, PCR Not Detected (NotDetected); Parainfluenza 1, PCR Not Detected (NotDetected); Parainfluenza 2, PCR Not Detected (NotDetected); Parainfluenza 3, PCR Not Detected (NotDetected); Parainfluenza 4, PCR Not Detected (NotDetected); Respiratory Syncytial Virus Not Detected (NotDetected)
[2023-05-30 18:34] LABS: Rhinovirus/Enterovirus Detected (NotDetected)
== END 2023-05-30 16:49 | disposition home or self-care (01) ==
PROVIDERS: Emergency Provider Nurse Practitioner Family; PCP Nurse Practitioner Family
DX: B34.8 Other viral infections of unspecified site (principal); R11.2 Nausea with vomiting, unspecified; R19.7 Diarrhea, unspecified; E10.9 Type 1 diabetes mellitus without complications; Z79.4 Long term (current) use of insulin
CPT/HCPCS: 87581; 87632; 87798; 99212; 99214; G0463

== ENCOUNTER 2024-08-17 12:07 | Emergency (ER) | payer OTHER, SELFPAY ==
[2024-08-17 13:02] VITALS: BP 131/92; PULSE 124; RESP 20; TEMP 36.9; O2SAT 98; BMI 29.7
[2024-08-17 13:16] LABS: UTC Strep Screen (Rapid) Negative (Negative)
[2024-08-17 13:17] LABS: UTC Influenza A Antigen Negative (Negative); UTC Influenza B Antigen Negative (Negative)
--- NOTE | 2024-08-17 13:37 | EXP.UTC ---
Discharge Plan Disposition Patient Disposition: Home, Self-Care Condition: Good Prescriptions Prescriptions: New azithromycin [Zithromax] 250 mg tablet 250 mg PO UD DOSE PK Qty: 6 0RF Rx Instructions: Take two (2) tablets today, then one (1) tablet days #2 thru #5 mupirocin 2 % ointment 1 applic topical TID 7 Days Qty: 15 0RF xqamniykypbaxni-qygsjuwtu-XN [Bromfed DM] 2-30-10 mg/5 mL Syrup 5 ml PO Q6H PRN (Reason: Cough) Qty: 240 0RF No Action (DME) blood sugar diagnostic Strip See Rx Instructions .ROUTE .MEDSUPPLY Qty: 10 Patient Comments: USE TO test 4 TO 6 times PER DAY DIRECTED Rx Instructions: As directed (DME) blood sugar diagnostic [Accu-Chek Guide test strips] Strip See Rx Instructions .ROUTE .MEDSUPPLY Qty: 10 8RF Rx Instructions: As directed Tresiba FlexTouch U-100 100 unit/mL (3 mL) insulin pen 52 unit SQ DAILY Qty: 15 4RF (DME) Dexcom G6 Transmitter Device See Rx Instructions .ROUTE .COMPLEX Qty: 1 1RF Dose Instruction: USE DIRECTED TO TEST BLOOD GLUCOSE LEVEL Rx Instructions: USE DIRECTED TO TEST BLOOD GLUCOSE LEVEL (DME) Dexcom G6 Sensor Device See Rx Instructions .ROUTE .COMPLEX Qty: 3 0RF Dose Instruction: USE DIRECTED TO TEST BLOOD GLUCOSE LEVEL Rx Instructions: USE DIRECTED TO TEST BLOOD GLUCOSE LEVEL lisinopril 2.5 mg tablet 2.5 mg PO DAILY Qty: 90 0RF trazodone 50 mg tablet 50 mg PO HS PRN (Reason: insomnia) Qty: 10 0RF aspirin [Aspir-81] 81 mg tablet,delayed release (DR/EC) 81 mg PO DAILY Qty: 30 2RF (DME) Dexcom G6 Carpentry Professional Misc See Rx Instructions .ROUTE .MEDSUPPLY Qty: 1 0RF Rx Instructions: As directed lidocaine (PF) 20 mg/mL (2 %) solution 50 mg peripheral nerve block ONCE Qty: 2.5 0RF (DME) lancets [OneTouch Delica Plus Lancet] 30 gauge misc See Rx Instructions .ROUTE .COMPLEX Qty: 100 5RF Dose Instruction: USE TO test blood DIRECTED Rx Instructions: USE TO test blood DIRECTED (DME) pen needle, diabetic [Comfort EZ Pen Siler] 31 gauge x 5/16 needle See Rx Instructions .ROUTE .MEDSUPPLY Qty: 1200 0RF Rx Instructions: As directed Fiasp FlexTouch U-100 Insulin 100 unit/mL (3 mL) insulin pen 20 unit SQ ACHS 30 Days Qty: 15 2RF ergocalciferol (vitamin D2) 1,250 mcg (50,000 unit) capsule 50,000 unit PO QWEEK Qty: 4 0RF (DME) inhalational spacing device 1 EACH spacer 1 each MC Q4-6H 14 Days Qty: 1 0RF albuterol sulfate 18 GM HFA aerosol inhaler 1 - 2 puffs IH Q4-6H PRN (Reason: Shortness Of Breath Or Wheezing) Qty: 1 0RF cephalexin 500 MG capsule 500 mg PO QID 10 Days Qty: 40 0RF mupirocin 1 GM ointment 1 applicatio TP TID 10 Days Qty: 10 0RF Rx Instructions: apply around the toenail on left great toe ondansetron 4 mg tablet,disintegrating 4 mg PO Q8H PRN (Reason: nausea and vomiting) Qty: 14 0RF azithromycin [azithromycin] 250 mg tablet 250 mg PO DIRECTED Qty: 6 0RF Rx Instructions: Take two (2) tablets on day #1, then one (1) tablet day #2 thru #5 fluticasone propionate [fluticasone propionate] 50 mcg/actuation spray,suspension 1 spray intranasal DAILY Qty: 9.9 0RF loratadine [Claritin] 10 mg tablet 10 mg PO DAILY Qty: 30 0RF promethazine 25 mg tablet 25 mg PO TID PRN (Reason: nausea and vomiting) Qty: 20 0RF methocarbamol 500 MG tablet 1,000 mg PO TID 10 Days Qty: 60 0RF ibuprofen 800 MG tablet 800 mg PO TIDP PRN (Reason: Moderate Pain) Qty: 20 0RF amoxicillin-pot clavulanate 875-125 mg Tablet 1 tab PO Q12H Qty: 20 0RF pseudoephedrine HCl [Sudafed 12 Hour] 120 mg tablet extended release 120 mg PO Q12H PRN (Reason: nasal congestion) Qty: 20 0RF fluticasone propionate [Flonase Allergy Relief] 50 mcg/actuation spray,suspension 1 spray intranasal DAILY Qty: 16 0RF Rx Instructions: administer into each nostril ondansetron 4 mg tablet,disintegrating 4 mg PO Q8H PRN (Reason: nausea and vomiting) Qty: 14 0RF zrqaizgeuynghsi-ezsgofrkx-KD [Bromfed DM] 2-30-10 mg/5 mL Syrup 5 ml PO Q6H PRN (Reason: Cough) Qty: 240 0RF ondansetron 4 mg Tablet,Disintegrating 4 mg PO Q8H PRN (Reason: Nausea) Qty: 12 0RF Referrals Follow up/Referrals: Chidi Ozuna APRN [Primary Care Provider] - See instructions Activity Restrictions/Add. Instructions Additional Instructions/Restrictions: Drink plenty of fluids. Take tylenol or ibuprofen for pain or fever. Take the medications as directed. Follow up with your regular doctor. GO TO THE ER FOR ANY WORSENING SYMPTOMS Clinical Impressions Clinical Impression: Acute viral syndrome, Pharyngitis, Diabetes, Laceration of hand Stand Alone Forms Stand Alone Forms: Work/School Release Instructions Patient Instructions: DI for Pharyngitis/Tonsillopharyngitis -- Adult, DI for Viral Syndrome, DI for Minor Laceration Print Language Print Language: Slovenian Discharge ED Provider: Amol Cullen [facility] General Stated complaint: vomiting, abd pain, fever, chills, headache Mode of Arrival: Ambulatory Source of Information: Patient Time Seen by Provider: 08/17/24 13:37 Description of Symptoms (Recalled from Triage Doc. by RN): FEEL WEAK, TIRED, CHILLS, VOMIT HEENT Symptoms (Recalled from RN notes): Yes Resp Symptoms (Recalled from RN notes): Yes Skin Symptoms (Recalled from RN notes): No MS Symptoms (Recalled from RN notes): No Functional Status (Recalled from RN notes): WNL Related Data Home Medications ?Medication ?Instructions ?Recorded ?Confirmed blood sugar diagnostic #10 ea 02/07/20 02/12/22 Previous Rx's ?Medication ?Instructions ?Recorded albuterol sulfate 90 mcg/actuation 1 - 2 puffs inhalation Q4-6H PRN 12/08/19 aerosol inhaler Shortness Of Breath Or Wheezing #1 inh inhalational spacing device ##1 12/08/19 blood sugar diagnostic (Accu-Chek #10 ea 02/07/20 Guide test strips) aspirin 81 mg tablet,delayed 81 mg PO DAILY #30 tabs 03/12/20 release (Aspir-) blood-glucose meter,continuous #1 ea 07/16/20 (Dexcom G6 Carpentry Professional) lancets 30 gauge (OneTouch Delica #100 ea 10/15/20 Plus Lancet) pen needle, diabetic 31 gauge x #1,200 ea 10/17/20 5/16 (Comfort EZ Pen Siler) blood-glucose sensor (Dexcom G6 #3 ea 08/31/21 Sensor device) blood-glucose transmitter (Dexcom #1 ea 08/31/21 G6 Transmitter device) insulin degludec 100 unit/mL (3 52 unit (0.52 mL) SQ DAILY 08/31/21 mL) subcutaneous pen (Tresiba Diabetes #15 mL FlexTouch U-100 insulin) lisinopril 2.5 mg tablet 2.5 mg PO DAILY #90 tabs 08/31/21 ibuprofen 800 mg tablet 800 mg PO TIDP PRN Moderate Pain 11/07/21 #20 tabs methocarbamol 500 mg tablet 1,000 mg (2 x 500 mg) PO TID 10 11/07/21 days #60 tabs cephalexin 500 mg capsule 500 mg PO QID 10 days #40 caps 01/09/22 mupirocin 2 % topical ointment 1 applicatio topical TID 10 days 01/09/22 ##10 insulin aspart 20 unit SQ ACHS 30 days #15 mL 02/01/22 (niacinamide)(U-100) 100 unit/mL(3 mL) subcutaneous pen (Fiasp FlexTouch U-100 Insulin) trazodone 50 mg tablet 50 mg PO HS PRN insomnia #10 tabs 02/12/22 ergocalciferol (vitamin D2) 1,250 50,000 unit PO QWEEK #4 caps 02/16/22 mcg (50,000 unit) capsule amoxicillin 875 mg-potassium 1 tab PO Q12H #20 tabs 09/23/22 clavulanate 125 mg tablet fluticasone propionate 50 1 spray intranasal DAILY #16 grams 09/23/22 mcg/actuation nasal spray,suspension (Flonase Allergy Relief) pseudoephedrine HCl 120 mg 120 mg PO Q12H PRN nasal 09/23/22 tablet,extended release (Sudafed congestion #20 tabs 12 Hour) ondansetron 4 mg disintegrating 4 mg PO Q8H PRN nausea and 01/08/23 tablet vomiting #14 tabs ondansetron 4 mg disintegrating 4 mg PO Q8H PRN nausea and 04/16/23 tablet vomiting #14 tabs fxyxxuuiifybixu-spgjaxtzfwwugpm-HK 5 ml PO Q6H PRN Cough #240 mL 05/06/23 2 mg-30 mg-10 mg/5 mL oral syrup (Bromfed DM) ondansetron 4 mg disintegrating 4 mg PO Q8H PRN Nausea #12 tabs 05/06/23 tablet azithromycin 250 mg tablet 250 mg PO DIRECTED #6 tabs 05/28/23 fluticasone propionate 50 1 spray intranasal DAILY #9.9 mL 05/28/23 mcg/actuation nasal spray,suspension loratadine 10 mg tablet (Claritin) 10 mg PO DAILY #30 tabs 05/28/23 promethazine 25 mg tablet 25 mg PO TID PRN nausea and 05/30/23 vomiting #20 tabs azithromycin 250 mg tablet 250 mg PO UD DOSE PK #6 tabs 08/17/24 (Zithromax) dgfdibsyezjzklf-kfmoxvnxfuzwkin-YX 5 ml PO Q6H PRN Cough #240 mL 08/17/24 2 mg-30 mg-10 mg/5 mL oral syrup (Bromfed DM) mupirocin 2 % topical ointment 1 applic topical TID 7 days #15 08/17/24 grams Allergies Allergy/AdvReac Type Severity Reaction Status Date / Time No Known Allergies Allergy Verified 05/30/23 16:07 Worker's Comp Is this a Worker's Comp case?: No [facility] Disclaimer: The information contained in this section may have been updated after the patient was seen, as this information can be updated by other users. Medical History , BURN OUT TENDER LACE) BOM (bilateral otitis media) IDDM (insulin dependent diabetes mellitus) Sinusitis Type 1 diabetes Surgical History , BURN OUT TENDER LACE) History of tonsillectomy Social History Smoking Status: Never smoker alcohol intake: never substance use type: denies use current occupational status: other Travel in the last 8 weeks: None household members: family housing: house ROS Obtained: Yes All systems reviewed & no additional complaints except as documented Constitutional Constitutional: Reports chills and Reports fever(s) Eyes Eyes: Denies eye discharge ENT Ears, Nose, Mouth, and Throat: Reports as per HPI Cardiovascular Cardiovascular: Denies chest pain Respiratory Respiratory: Denies chest congestion and Reports cough Gastrointestinal Gastrointestingal: Reports nausea; Denies abdominal pain, constipation, cramping, diarrhea or vomiting Musculoskeletal Musculoskeletal: Denies arthralgias Integumentary/Breasts Skin/Breast: Denies rash Neurologic Neurologic: Denies paresthesias Physical Exam General General appearance: alert and in no apparent distress Head Head exam: atraumatic, normocephalic and normal inspection Eye Eye exam: Present normal appearance, PERRL and EOMI ENT ENT exam: Present mucous membranes moist and normal external ear exam Expanded ENT Exam TM/Canal exam: Bilateral TM: erythema and bulging Nose exam: Absent sinus tenderness Mouth exam: Present normal external inspection; Absent drooling Teeth exam: Present normal inspection Throat exam: Present tonsillar erythema, tonsillomegaly and tonsillar exudate Neck Neck exam: Present normal inspection, full ROM and trachea midline; Absent tenderness, meningismus or lymphadenopathy Chest Chest inspection: Present normal inspection and symmetric chest wall rise; Absent tenderness Respiratory Respiratory exam: Present normal lung sounds bilaterally; Absent respiratory distress, wheezes, stridor or accessory muscle use Cardiovascular Cardiovascular exam: Present regular rate and normal rhythm; Absent systolic murmur or diastolic murmur Abdominal Exam Abdominal exam: Present soft and normal bowel sounds; Absent distention, tenderness, guarding, rebound or rigidity Extremities Exam Extremities exam: Present normal inspection and normal capillary refill; Absent calf tenderness Back Exam Back exam: Present normal inspection and full ROM; Absent tenderness, CVA tenderness (R) or CVA tenderness (L) Neurological Exam Neurological exam: Present alert, oriented X3 and CN II-XII intact Psychiatric Psychiatric exam: Present normal affect and normal mood Skin Skin exam: Present warm, dry, intact and normal color Medical Decision Making Medical Records Medical records reviewed: No I reviewed the patient's medical records. Screening: Per USPSTF and CDC recommendations, given the prevalence of disease in our region, it is our hospital?s policy to screen for HIV and viral Hepatitis for all patients aged 18 and over and those with ongoing risk factors. Misael Inquiry Pt receiving controlled substance: No Vital Signs: 08/17/24 13:02 Temperature 98.4 F Temperature Source Oral Pulse Rate [Left Radial] 124 H Respiratory Rate 20 Blood Pressure [Left Arm] 131/92 H Blood Pressure Mean [Left Arm] 105 02 Sat by Pulse Oximetry 98 Lab Data Lab results reviewed: Yes I reviewed the patient's lab results. Lab Results 08/17/24 13:01: Influenza Type A Ag Negative, Influenza Type B Ag Negative, Strep Scn Rapid Clinic Negative Orders (Tests/Meds): ORDERS Category Date Time Status Strep Screen Confirmation Stat Micro 08/17/24 13:01 Received
[2024-08-17 14:14] VITALS: BP 131/92; PULSE 124; RESP 20; TEMP 36.9
[2024-08-17 14:22] LABS: Coronavirus 19, PCR Not Detected (NotDetected); Influenza A, PCR Not Detected (NotDetected); Influenza B, PCR Not Detected (NotDetected)
== END 2024-08-17 14:21 | disposition home or self-care (01) ==
PROVIDERS: Emergency Provider Nurse Practitioner Family; PCP Nurse Practitioner Family
DX: J02.9 Acute pharyngitis, unspecified (principal); B34.9 Viral infection, unspecified
CPT/HCPCS: 87636; 87804; 87880; 99213; G0381

== ENCOUNTER 2025-05-02 11:51 | Outpatient (CLI) | payer BC, SELFPAY ==
--- OUTSIDE RECORDS SUMMARY | 2025-05-02 11:53 | XMS_ITS | Clinical Summary ---
Author Organization [facility] Address [address] [place] [address] Phone [email or web address] Care Team Providers Care Ship Boat Or Barge Mate Name Role Phone Unavailable Primary Care Provider Unavailabl e Social History Tobacco Use Types Packs/Day Years Used Date Smoking Tobacco: Never Assessed Intimate Partner Violence Answer Date R ecorded Insults You Not on file 12/27/2020 Threatens You Not on file 12/27/2020 Screams at You Not on file 12/27/2020 Physically Hurt Not on file 12/27/2020 Intimate Partner Violence Score Not on file 12/27/2020 Stress Answer Date Recorded Stress in your Life Not on file 07/18/2024 Dealing with Stress 3 07/18/2024 Sex and Gender Information Value Date Recorded Sex Assigned at Not on file Legal Sex Male 4:32 PM CDT Gender Identity Not on file Sexual Orientation Not on file Plan of Treatment Health Maintenance Due Date Last Done Comments Dental Cleaning/Exam 2001 HIV Screening 2001 Hepatitis C Screening 2001 HPV Immunization (1 - Male 3 -dose series) 01/03/2016 Annual Preventive Exam 2019 Hep B Infection Screening - Triple Screen 2019 Hepatitis B Immunization (1 of 3 - 19+ 3-dose series) 01/03/2020 Tetanus Diphtheria and Pertu ssis Immunization (1 - Tdap) 01/03/2020 Covid-19 Immunization (1 - 2 -25 season) 2024 Influenza Immunization (#1) 2025 HIB Immunization Aged Out No longer e ligible based on patient's age to complete this topic Hepatitis A Immunization Aged Out No longer eligible based on patient's age to complete this topic Men B Immunization Aged Out No longer eligible based on patient's age to complete this topic Meningococcal Immunization Aged Out N o longer eligible based on patient's age to complete this topic Pneumococcal: Ped (0 to 5 Yr s) and At-Risk Member (6 to 64 Yrs) Aged Out No longer e ligible based on patient's age to complete this topic Polio Immunization Aged Out No longer eligible based on patient's age to complete this topic Varicella Immunization Aged Out No lo nger eligible based on patient's age to complete this topic
--- OUTSIDE RECORDS SUMMARY | 2025-05-02 11:53 | XMS_ITS | Clinical Summary ---
Author Organization [facility] Address [address] [place] [address] Care Team Providers Care Computational Chemist Name Role Phone Calos Adam MD Primary Care Provider [phone] Immunizations Immunization Administration Dates Next Due Influenza, Unspecified 08/22/2007 Influenza, injectable, quadrivalent, preservativ e free 06/21/2016 Influenza, seasonal, injectable, preservative fr ee 06/10/2015 Family History Medical History Relation Name Comments Diabetes Paternal Grandmother Relation Name Status Comments Paternal Grandmother Social History Tobacco Use Types Packs/Day Years Used Date Smoking Tobacco: Former Alcohol Use Standard Drinks/Week Comments No 0 (1 standard drink = 0.6 oz pur e alcohol) Sex and Gender Information Value Date Recorded Sex Assigned at Not on file Legal Sex Male 8:43 PM EDT Gender Identity Not on file Sexual Orientation Not on file Last Filed Vital Signs Vital Sign Reading Time Taken Comments Blood Pressure 124/85 05/09/2019 8:03 AM EDT Pulse 106 05/09/2019 8:03 AM EDT Temperature 36.6 C (97.8 F) 04/26/2018 10:31 AM EDT Respiratory Rate - - Oxygen Saturation - - Inhaled Oxygen Concentration - - Weight 87.2 kg (192 lb 3.9 oz) 05/09/2019 8:03 A M EDT Height 169.8 cm (5' 6.85 ) 05/09/2019 8:03 AM ED T Body Mass Index 30.24 05/09/2019 8:03 AM EDT Plan of Treatment Not on file Care Teams Computational Chemist Relationship Specialty Start Date End Date Calos Adam MD [address] [place] [address] PCP - General 01/23/21
--- NOTE | 2025-05-02 11:54 | XR_ITS ---
FINAL REPORT CLINICAL HISTORY: low back pain, fall fall x 3 days pain shoots down both legs / mostly down right COMPARISON: 12/26/2018 FINDINGS: 3 views of the lumbar spine were obtained. There is no evidence of fracture. There is no malalignment. The vertebrae are normal in height. Disc spaces are preserved. There is mild facet sclerosis in the lower lumbar spine. No paraspinous soft tissue abnormalities identified. IMPRESSION: No acute process. Reviewed, Interpreted and Dictated by Tony Dotson MD Transcribed by Aleisha Sanders Authenticated and . [facility]
== END 2025-05-02 23:59 | disposition home or self-care (01) ==
LOC: RAD 11:52
PROVIDERS: PCP Nurse Practitioner Family; Visit Provider Student in an Organized Health Care Education/Training Program
DX: M54.50 Low back pain, unspecified (principal); W19.XXXA Unspecified fall, initial encounter
CPT/HCPCS: 72100

== ENCOUNTER 2025-06-10 15:56 | Emergency (ER) | payer BC, SELFPAY ==
[2025-06-10] VITALS (20 sets, daily range): BP systolic 99–131; BP diastolic 52–87; PULSE 68–120; RESP 17–19; TEMP 36.9–37; O2SAT 95–100; BMI 27.9
--- OUTSIDE RECORDS SUMMARY | 2025-06-10 16:15 | XMS_ITS | Clinical Summary ---
Author Organization [facility] Address [address] [place] [address] Phone [email or web address] Care Team Providers Care Lunchroom Attendant Name Role Phone Unavailable Primary Care Provider [...] Tdap) 01/03/2020 Covid-19 Immunization (1 - 2 25 season) 2025 Influenza Immunization (#1) 2025 HIB Immunization Aged [...] on patient's age to complete this topic Pneumococcal Immunization Aged Out No longer eligible based on patient's age to complete this topic Polio Immunization Aged Out No longer eligible based on patient's age to complete this topic Varicella Immunization Aged Out No lo nger eligible based on patient's age to complete this topic
--- OUTSIDE RECORDS SUMMARY | 2025-06-10 16:15 | XMS_ITS | Clinical Summary ---
Author Organization [facility] Address [address] [place] [address] Care Team Providers Care Carpenter Helper Hardwood Flooring Name Role Phone Calos Adam MD Primary Care Provider [phone] Immunizations Immunization Administration Dates Next Due Influenza, [...] of Treatment Not on file Care Teams Carpenter Helper Hardwood Flooring Relationship Specialty Start Date End Date Calos Adam MD [address] [place] [address] PCP - General 01/23/21
--- NOTE | 2025-06-10 16:21 | ED_ITS ---
<Statement entered by Miguel Roque MD - 06/11/25 11:27> I was consulted by the JESSE, and we discussed the complexity of the problems being addressed. I approve the treatment and management plan for this patient's care in the emergency department, thus performing a substantive portion of the medical decision making. Miguel Roque MD Discharge Plan Disposition Patient Disposition: Home, Self-Care Prescriptions Prescriptions: New cefdinir 300 mg capsule 300 mg PO BID 10 Days Qty: 20 0RF prednisone 20 mg tablet 20 mg PO BID 7 Days Qty: 14 0RF No Action (DME) blood sugar diagnostic Strip See Rx Instructions .ROUTE .MEDSUPPLY Qty: 10 Patient Comments: USE TO test 4 TO 6 times PER DAY DIRECTED Rx Instructions: As directed (DME) blood sugar diagnostic [Accu-Chek Guide test strips] Strip See Rx Instructions .ROUTE .MEDSUPPLY Qty: 10 8RF Rx Instructions: As directed Tresiba FlexTouch U-100 100 unit/mL (3 mL) insulin pen 52 unit SQ DAILY Qty: 15 4RF (DME) Dexcom G6 Transmitter Device See Rx Instructions .ROUTE .COMPLEX Qty: 1 1RF Dose Instruction: USE DIRECTED TO TEST BLOOD GLUCOSE LEVEL Rx Instructions: USE DIRECTED TO TEST BLOOD GLUCOSE LEVEL (DME) Dexcom G6 Sensor Device See Rx Instructions .ROUTE .COMPLEX Qty: 3 0RF Dose Instruction: USE DIRECTED TO TEST BLOOD GLUCOSE LEVEL Rx Instructions: USE DIRECTED TO TEST BLOOD GLUCOSE LEVEL lisinopril 2.5 mg tablet 2.5 mg PO DAILY Qty: 90 0RF ibuprofen 800 mg tablet 800 mg PO Q8H Qty: 30 0RF cyclobenzaprine 5 mg tablet 5 mg PO TID PRN (Reason: muscle spasm) Qty: 14 0RF aspirin [Aspir-81] 81 mg tablet,delayed release (DR/EC) 81 mg PO DAILY Qty: 30 2RF (DME) Dexcom G6 Database Technician Misc See Rx Instructions .ROUTE .MEDSUPPLY Qty: 1 0RF Rx Instructions: As directed lidocaine (PF) 20 mg/mL (2 %) solution 50 mg peripheral nerve block ONCE Qty: 2.5 0RF azithromycin [Zithromax Z-Rajesh] 250 mg tablet See Rx Instructions PO .COMPLEX Qty: 6 0RF Rx Instructions: For 250 mg dose pack: take 500 mg today (day 1), then 250 mg for 4 days (days 2-5) PO guaifenesin 1,200 mg tablet extended release 12hr 1,200 mg PO BID Qty: 30 0RF (DME) lancets [OneTouch Delica Plus Lancet] 30 gauge misc See Rx Instructions .ROUTE .COMPLEX Qty: 100 5RF Dose Instruction: USE TO test blood DIRECTED Rx Instructions: USE TO test blood DIRECTED (DME) pen needle, diabetic [Comfort EZ Pen [place]] 31 gauge x 5/16 needle See Rx Instructions .ROUTE .MEDSUPPLY Qty: 1200 0RF Rx Instructions: As directed Fiasp FlexTouch U-100 Insulin 100 unit/mL (3 mL) insulin pen 20 unit SQ ACHS 30 Days Qty: 15 2RF ergocalciferol (vitamin D2) 1,250 mcg (50,000 unit) capsule 50,000 unit PO QWEEK Qty: 4 0RF (DME) inhalational spacing device 1 EACH spacer 1 each MC Q4-6H 14 Days Qty: 1 0RF albuterol sulfate 18 GM HFA aerosol inhaler 1 - 2 puffs IH Q4-6H PRN (Reason: Shortness Of Breath Or Wheezing) Qty: 1 0RF loratadine [Claritin] 10 mg tablet 10 mg PO DAILY Qty: 30 0RF Referrals Follow up/Referrals: Chidi Ozuna APRN [Primary Care Provider, Medical] - See instructions Sarath Dunham DO [Staff Physician, Orthopedics] - See instructions Activity Restrictions/Add. Instructions Additional Instructions/Restrictions: Please take the azithromycin that the [facility] gave you. Also take the medications that I have given you as directed. Please call your PCP for follow-up care. Please also call Dr. Dunham for follow-up care on your back. This is a compression fracture that is indeterminate age. This may be old or new it is hard to tell on the x-ray. Clinical Impressions Clinical Impression: Pneumonia, Compression fracture of T4 vertebra Instructions Patient Instructions: Vertebral Compression Fracture, Cough, DI for Pneumonia -- Adult Print Language Print Language: Citizen Of [place] Discharge ED Provider: Miguel Roque General Adult HPI General Chief complaint: Cough Stated complaint: diff breathing,left side hurts, cough Time Seen by Provider: 06/10/25 16:09 History of Present Illness HPI narrative: 25-year-old male presents to the ED today for complaint of shortness of breath, pain with breathing in. Patient is holding his epigastric area and left rib and left side. He is in tears saying it hurts to breathe. Denies fevers or chills. He has a productive cough and went to the urgent treatment center and they gave him Mucinex and azithromycin. He started taking it today and started feeling worse. He says when he vomits he hurts in his left neck. He says he has been sick for over a week. No other symptoms at this time. Related Data Home Medications ?Medication ?Instructions ?Recorded ?Confirmed blood sugar diagnostic #10 ea 02/07/20 06/10/25 Previous Rx's ?Medication ?Instructions ?Recorded albuterol sulfate 90 mcg/actuation 1 - 2 puffs inhalat ion Q4-6H PRN 12/08/19 aerosol inhaler Shortness Of Breath Or Wheez ing #1 inh inhalational spacing device ##1 12/08/19 blood sugar diagnostic (Accu-Chek #10 ea 02/07/20 Guide test strips) aspirin 81 mg tablet,delayed 81 mg PO DAILY #30 tabs 0 03/12/20 release (Aspir-) blood-glucose,pharmacist aide,cont #1 ea 07/16/20 (Dexcom G6 Database Technician) lancets 30 gauge (OneTouch Delica #100 ea 10/15/20 Plus Lancet) pen needle, diabetic 31 gauge x #1,200 ea 10/17/2001/25 (Comfort EZ Pen [place]) blood-glucose sensor (Dexcom G6 #3 ea 08/31/21 Sensor device) blood-glucose transmitter (Dexcom #1 ea 08/31/21 G6 Transmitter device) insulin degludec 100 unit/mL (3 52 unit (0.52 mL) SQ D AILY 08/31/21 mL) subcutaneous pen (Tresiba Diabetes #15 mL FlexTouch U-100 insulin) lisinopril 2.5 mg tablet 2.5 mg PO DAILY #90 tabs insulin aspart 20 unit SQ ACHS 30 days #15 mL 02/01/22 (niacinamide)(U-100) 100 unit/mL(3 mL) subcutaneous pen (Fiasp FlexTouch U-100 Insulin) ergocalciferol (vitamin D2) 1,250 50,000 unit PO QWEEK #4 caps 02/16/22 mcg (50,000 unit) capsule loratadine 10 mg tablet (Claritin) 10 mg PO DAILY #30 tabs 05/28/23 cyclobenzaprine 5 mg tablet 5 mg PO TID PRN muscle spa sm #14 05/02/25 tabs ibuprofen 800 mg tablet 800 mg PO Q8H #30 tabs 05/02 azithromycin 250 mg tablet See Rx Instructions PO .COM PLEX #6 06/10/25 (Zithromax Z-Rajesh) tabs cefdinir 300 mg capsule 300 mg PO BID 10 days #20 ca ps 06/10/25 guaifenesin 1,200 mg tablet, 1,200 mg PO BID #30 tabs 06/10/25 extended release 12 hr prednisone 20 mg tablet 20 mg PO BID 7 days #14 tabs 06/10/25 Allergies Allergy/AdvReac Type Severity Reaction Status Date / Time No Known Allergies Allergy Verified 06/10/25 13:00 [facility] Disclaimer: The information contained in this section may have been updated after the patient was seen, as this information can be updated by other users. Medical History IDDM (insulin dependent diabetes mellitus) Type 1 diabetes Sinusitis BOM (bilateral otitis media) Surgical History History of tonsillectomy Social History Smoking Status: Current every day smoker alcohol intake: never substance use type: denies use current occupational status: other Travel in the last 8 weeks?: None household members: family housing: house Have you lived/traveled outside US in past 30 days?: No Contact w/someone who lives/traveled outside US past 30 days?: No Exposure to someone with infectious disease in past 14 days?: No Do you have a fever (greater than 100.4 F or 38 C)?: No Have you tested positive for COVID-19?: No Exposed to someone with COVID-19 in past 14 days?: No Do you have a sore throat?: No Do you have a cough?: No Do you have any weakness?: No Do you have any diarrhea?: No Are you experiencing any unusual bleeding?: No Do you have any muscle aches/pain?: No Do you have any abdominal pain?: No Are you experiencing loss of taste or smell?: No Other Medical History Have you received the Flu Vaccine for this season: No Have you received the Pneumonia Vaccine: No ROS Obtained: Yes Systems reviewed as appropriate & no additional complaints except as documented Constitutional Constitutional: Reports as per HPI Physical Exam General General appearance: alert and anxious Head Head exam: normocephalic Eye Eye exam: Present PERRL and EOMI ENT ENT exam: Present normal oropharynx and mucous membranes moist Neck Neck exam: Present full ROM and trachea midline Respiratory Respiratory exam: Present normal lung sounds bilaterally Cardiovascular Cardiovascular exam: Present regular rate, normal rhythm, normal heart sounds, +S1 and +S2 Abdominal Exam Abdominal exam: Present soft and normal bowel sounds Abdominal tenderness: Present LUQ and epigastrium Extremities Exam Extremities exam: Present normal inspection, full ROM and normal capillary refill Neurological Exam Neurological exam: Present alert and oriented X3 Skin Skin exam: Present warm, dry and intact Medical Decision Making Medical Records Screening: Per USPSTF and CDC recommendations, given the prevalence of disease in our region, it is our hospital?s policy to screen for HIV and viral Hepatitis for all patients aged 18 and over and those with ongoing risk factors. Misael Inquiry Pt receiving controlled substance: No Misael was queried for this patient: No Vital Signs: 06/10/25 16:17 06/10/25 16:20 06/10/25 16:46 Temperature 98.4 F Temperature Source Oral Pulse Rate 112 H 102 H Pulse Rate [Left] 112 H Respiratory Rate 19 19 19 Blood Pressure 111/83 Blood Pressure [Right Arm] 125/87 Blood Pressure Mean 90 Blood Pressure Mean [Right Arm] 99 Blood Pressure Source [Right Arm] Automatic Cuff Blood Pressure Position [Right Arm] Sitting 02 Sat by Pulse Oximetry 96 97 98 Oxygen Delivery Method Room Air Room Air Room Air 06/10/25 17:00 06/10/25 17:30 06/10/25 18:00 Temperature Temperature Source Pulse Rate 105 H 109 H 117 H Pulse Rate [Left] Respiratory Rate 19 19 17 Blood Pressure 114/75 119/62 109/55 L Blood Pressure [Right Arm] Blood Pressure Mean 84 76 68 Blood Pressure Mean [Right Arm] Blood Pressure Source [Right Arm] Blood Pressure Position [Right Arm] 02 Sat by Pulse Oximetry 100 100 96 Oxygen Delivery Method Room Air Room Air 06/10/25 18:30 06/10/25 18:45 06/10/25 18:56 Temperature Temperature Source Pulse Rate 117 H 117 H 117 H Pulse Rate [Left] Respiratory Rate 19 19 Blood Pressure 99/52 L 121/74 Blood Pressure [Right Arm] Blood Pressure Mean 66 87 Blood Pressure Mean [Right Arm] Blood Pressure Source [Right Arm] Blood Pressure Position [Right Arm] 02 Sat by Pulse Oximetry 96 95 97 Oxygen Delivery Method Room Air Room Air 06/10/25 19:00 06/10/25 19:23 06/10/25 19:30 Temperature Temperature Source Pulse Rate 117 H 116 H Pulse Rate [Left] Respiratory Rate 19 Blood Pressure 116/76 131/82 Blood Pressure [Right Arm] Blood Pressure Mean 88 97 Blood Pressure Mean [Right Arm] Blood Pressure Source [Right Arm] Blood Pressure Position [Right Arm] 02 Sat by Pulse Oximetry 96 97 Oxygen Delivery Method Room Air 06/10/25 19:58 06/10/25 20:00 06/10/25 20:16 Temperature Temperature Source Pulse Rate 68 120 H Pulse Rate [Left] Respiratory Rate Blood Pressure 121/79 Blood Pressure [Right Arm] Blood Pressure Mean 88 Blood Pressure Mean [Right Arm] Blood Pressure Source [Right Arm] Blood Pressure Position [Right Arm] 02 Sat by Pulse Oximetry 100 96 Oxygen Delivery Method 06/10/25 20:30 06/10/25 20:30 06/10/25 20:45 Temperature Temperature Source Pulse Rate 114 H 117 H Pulse Rate [Left] Respiratory Rate Blood Pressure 119/82 Blood Pressure [Right Arm] Blood Pressure Mean 88 Blood Pressure Mean [Right Arm] Blood Pressure Source [Right Arm] Blood Pressure Position [Right Arm] 02 Sat by Pulse Oximetry 98 96 Oxygen Delivery Method 06/10/25 21:00 06/10/25 21:01 06/10/25 21:01 Temperature Temperature Source Pulse Rate 113 H 114 H Pulse Rate [Left] Respiratory Rate Blood Pressure 99/59 L Blood Pressure [Right Arm] Blood Pressure Mean 72 Blood Pressure Mean [Right Arm] Blood Pressure Source [Right Arm] Blood Pressure Position [Right Arm] 02 Sat by Pulse Oximetry 98 97 Oxygen Delivery Method Lab Data Lab Results 06/10/25 16:29: SARS-CoV-2 (PCR) Not detected, Influenza A Untype (PCR) Not detected, Influenza Type B (PCR) Not detected 06/10/25 16:40: WBC 14.7 H, RBC 5.25, Hgb 14.4, Hct 43.2, MCV 82.3, MCH 27.4, MCHC 33.3, RDW 11.7, Plt Count 422, MPV 9.8, Neut % (Auto) 81.1 H, Lymph % (Auto) 10.8, [place] % (Auto) 6.7, Eos % (Auto) 0.6, Baso % (Auto) 0.3, Neut # (Auto) 11.9 H, Lymph # (Auto) 1.6, [place] # (Auto) 1.0, Eos # (Auto) 0.1, Baso # (Auto) 0.0, Sodium 131 L, Potassium 4.2, Chloride 93 L, Carbon Dioxide 26, Anion Gap 16.2 H, BUN 6 L, Creatinine 0.60 L, Estimated Creat Clear 211, Estimated GFR 166, Est GFR ( Amer) 200, Glucose 296 H, Calcium 9.5, Magnesium 1.8, Total Bilirubin 1.1, AST 23, ALT 17, Alkaline Phosphatase 131 H, Troponin I < 0.01, Total Protein 8.3 H, Albumin 4.6, Globulin 3.7 H, Albumin/Globulin Ratio 1.2, Lipase 47 06/10/25 19:35: Troponin I < 0.01 06/10/25 16:40 06/10/25 16:40 Orders (Tests/Meds): ED MEDICATIONS Discontinued Medications Generic Name Dose Route Start Last Admin Trade Name Whit PRN Reason Stop Dose Admin Albuterol/Ipratropium 9 ml 06/10/25 16:17 06/10/25 16:44 Ipratropium/Albuterol 3 Ml Neb IH 06/10/25 16:18 9 ml ONCE ONE Administration Magnesium Sulfate 2 gm in 50 mls @ 50 mls/hr 06/10/25 16:17 06/10/25 17:40 Magnesium Sulfate 2gm/50ml Premix IV 06/10/25 17:16 Infused ONCE ONE Infusion Sodium Chloride 1,000 mls @ 999 mls/hr 06/10/25 16:41 06/10/25 18:29 Sod Chlor 0.9% 1000ml Bag IV 06/10/25 17:41 Infused .Q1H1M ONE Infusion Iopamidol 70 ml 06/10/25 19:18 06/10/25 19:20 Iopamidol-370 (76%);100ml Bottle IV 06/10/25 19:19 70 ml ONCE ONE Administration Methylprednisolone Sodium Succinate 125 mg 06/10/25 16:17 06/10/25 16:44 Methylprednisolone Sod Succ 125mg Vial IV 06/10/25 16:18 125 mg ONCE ONE Administration Orphenadrine Citrate 30 mg 06/10/25 16:17 06/10/25 16:44 Orphenadrine Citrate 60mg/2ml Vial IV 06/10/25 16:18 30 mg ONCE ONE Administration Sodium Chloride 10 ml 06/10/25 19:18 06/10/25 19:20 Sodium Chloride 0.9% 10ml Syr (Rad Only) IV 06/10/25 19:19 10 ml ONCE ONE Administration Sodium Chloride 50 ml 06/10/25 19:18 06/10/25 19:19 0.9 % Sodium Chloride 50 Ml Vial IV 06/10/25 19:19 50 ml ONCE ONE Administration ORDERS Category Date Time Status CT angio chest PE protocol Stat Cat Scan 06/10/25 19:05 Completed CBC [Complete Blood Count Auto Diff] Stat Lab 06/10/25 16:40 Completed Comprehensive Metabolic Panel Stat Lab 06/10/25 16:40 Completed Lipase Stat Lab 06/10/25 16:40 Completed Magnesium Stat Lab 06/10/25 16:40 Completed Rapid PCR Covid and Flu A/B Stat Lab 06/10/25 16:29 Completed Trop I [Troponin I] Stat Lab 06/10/25 16:40 Completed Troponin I Q3H Lab 06/10/25 19:35 Completed Troponin I Q3H Lab 06/10/25 22:30 Ordered Medical Decision Narrative: Patient is a 25-year-old male presenting to the emergency department for evaluation of cough, mucus production, pain with breathing. Patient is hemodynamically stable and nontoxic-appearing upon arrival, afebrile. Differential diagnosis includes pneumonia, viral illness, among other. Workup will be conducted with hematologic labs, specific imaging. Initial inventions include crystalloid bolus. Initial workup reviewed by [place] hematologic labs are remarkable for elevated white count at 14.7. Patient does have a left lower lobe pneumonia. CT also shows a minimal T4 compression fracture. I will send patient home with antibiotics as well as a Dr. Dunham referral. Patient is anxious to go home so I will give him antibiotics and steroids to go home on. Patient safe for discharge home. Patient has been given return precautions for the fracture and the pneumonia. Critical Care Critical Care Time Critical Care Time: No
[2025-06-10 16:36] LABS: Coronavirus 19, PCR Not Detected (NotDetected); Influenza A, PCR Not Detected (NotDetected); Influenza B, PCR Not Detected (NotDetected)
[2025-06-10] MEDS: 0.9 % SODIUM CHLORIDE 1000ML 1,000 ML 999 ML IV (16:43)
[2025-06-10] MEDS: ORPHENADRINE CITRATE 60MG/2ML VIAL 30 MG IV (16:44)
[2025-06-10] MEDS: METHYLPREDNISOLONE SOD SUCC 125MG VIAL 125 MG IV (16:44)
[2025-06-10] MEDS: MAGNESIUM SULFATE IN WATER 2 GM/50 ML PIGGYBACK IV (16:44)
[2025-06-10] MEDS: IPRATROPIUM/ALBUTEROL 3 ML NEB 9 ML IH (16:44)
--- NOTE | 2025-06-10 16:56 | ECG_ITS ---
APPROVED REPORT Exam: Resting ECG HR:105 bpm ECG Measurements Heart Rate 105 AXES IA 130 P 59 QRSd 100 QRS 42 QT 346 T 49 QTc 407 Conclusion SINUS TACHYCARDIA ABNORMAL RHYTHM ECG UNCONFIRMED REPORT Electronically signed by : CLARA WILSON, 06/10/2025 22:59:43
[2025-06-10 18:03] LABS: Hematocrit 43.2 % (42.0-52.0); Hemoglobin 14.4 g/dL (14.1-18.0); Immature Granulocytes % 0.5 %; Mean Corpuscular HGB Conc 33.3 g/dL (31.8-35.4); Mean Corpuscular Hemoglobin 27.4 pg (27.0-31.2); Mean Corpuscular Volume 82.3 fl (80-94); Nucleated Red Blood Cells % 0 %; Platelet Count 422 K/mm3 (142-424); Red Blood Count 5.25 M/mm3 (4.60-6.20); Red Cell Distribution Width-SD 34.8 fL; White Blood Count 14.7 K/mm3 (4.8-10.8)
[2025-06-10 18:11] LABS: Alanine Aminotransferase 17 U/L (12-78); Albumin Level 4.6 g/dl (3.5-5.0); Albumin/Globulin Ratio 1.2 (1.1-1.8); Alkaline Phosphatase 131 U/L (38-126); Anion Gap 16.2 mEq/L (5-15); Aspartate Amino Transferase 23 U/L (17-59); Bilirubin,Total 1.1 mg/dl (0.2-1.3); Blood Urea Nitrogen 6 mg/dl (9-20); Calcium 9.5 mg/dl (8.4-10.2); Carbon Dioxide 26 mmol/L (22.0-30.0); Chloride 93 mmol/L (98-107); Creatinine Clearance Estimated 211 mL/min (50-200); Creatinine,Serum 0.60 mg/dl (0.66-1.25); Estimated Glomerular Filt Rate 166 ml/min (>60); GFR (African American) 200 ML/MIN (>60); Globulin 3.7 g/dL (1.3-3.2); Glucose 296 mg/dl (74-100); Lipase 47 U/L (23-300); Magnesium 1.8 mg/dl (1.6-2.3); Potassium 4.2 mmoL/L (3.5-5.1); Sodium 131 mmol/L (136-145); Total Protein,Serum 8.3 g/dl (6.3-8.2)
[2025-06-10 18:34] LABS: Troponin I < 0.01 ng/ml (0.00-0.034)
--- NOTE | 2025-06-10 19:05 | CT_ITS ---
PROCEDURE INFORMATION: Exam: CTA Chest With Contrast Exam date and time: 06/10/2025 7:17 PM Age: 25 years old Clinical indication: Shortness of breath; Additional info: Short of breath TECHNIQUE: Imaging protocol: Computed tomographic angiography of the chest with contrast. Exam focused on the arteries. 3D rendering (Not supervised by radiologist): MIP and/or 3D reconstructed images were created by the technologist. Radiation optimization: All CT scans at this facility use at least one of these dose optimization techniques: automated exposure control; mA and/or kV adjustment per patient size (includes targeted exams where dose is matched to clinical indication); or iterative reconstruction. Contrast material: ISOVUE; Contrast volume: 70 ml; Contrast route: INTRAVENOUS (IV); COMPARISON: CR XR CHEST 2V 12/08/2019 12:59 PM FINDINGS: Pulmonary arteries: No acute pulmonary emboli. Aorta: Unremarkable. No aortic aneurysm. No aortic dissection. Lungs: Small left lower lobe pneumonia possible. Pleural spaces: Small-sized left pleural effusion with associated atelectasis. Heart: Unremarkable. No cardiomegaly. No pericardial effusion. Lymph nodes: Unremarkable. No enlarged lymph nodes. Liver: Simple left hepatic lobe cyst. Bones/joints: Minimal compression fracture deformity of the superior endplate of the T4 vertebral body, with approximately 20% loss of anterior and central vertebral body height. Soft tissues: Unremarkable. IMPRESSION: 1. No acute pulmonary emboli. 2. Small-sized left pleural effusion with associated atelectasis. Small left lower lobe pneumonia possible. Recommend follow-up. 3. Minimal compression fracture deformity of the superior endplate of the T4 vertebral body, with approximately 20% loss of anterior and central vertebral body height. Fracture is of indeterminate age.
[2025-06-10] MEDS: 0.9 % SODIUM CHLORIDE 50 ML VIAL IV (19:19)
[2025-06-10] MEDS: SODIUM CHLORIDE 0.9% 10ML SYR (RAD ONLY) 10 ML IV (19:20)
[2025-06-10] MEDS: IOPAMIDOL-370 (76%);100ML BOTTLE 70 ML IV (19:20)
[2025-06-10 20:11] LABS: Troponin I < 0.01 ng/ml (0.00-0.034)
== END 2025-06-10 21:19 | disposition home or self-care (01) ==
PROVIDERS: Nurse Practitioner; Emergency Provider Student in an Organized Health Care Education/Training Program; PCP Nurse Practitioner Family
DX: J18.9 Pneumonia, unspecified organism (principal); R07.1 Chest pain on breathing; S22.040A Wedge compression fracture of fourth thoracic vertebra, initial encounter for closed fracture; R00.0 Tachycardia, unspecified; E10.65 Type 1 diabetes mellitus with hyperglycemia; E87.1 Hypo-osmolality and hyponatremia; X58.XXXA Exposure to other specified factors, initial encounter; F17.210 Nicotine dependence, cigarettes, uncomplicated
CPT/HCPCS: 71275; 80053; 83690; 83735; 84484; 85025; 87636; 93005; 96365; 96375; 99285; J2360; J2919; J3475; J7030; Q9967

== ENCOUNTER 2025-07-31 00:28 | Inpatient (IN) | payer OTHER, SELFPAY ==
[2025-07-31] VITALS (42 sets, daily range): BP systolic 96–131; BP diastolic 49–85; PULSE 90–129; RESP 16–29; TEMP 36.5–36.8; O2SAT 96–100; BMI 24.2; BMI 23.0
--- NOTE | 2025-07-31 00:17 | CT_ITS ---
PROCEDURE INFORMATION: Exam: CT Abdomen And Pelvis With Contrast Exam date and time: 07/31/2025 2:06 AM Age: 25 years old Clinical indication: Abdominal pain; Additional info: Luq abd pain, n/v, suspected dka TECHNIQUE: Imaging protocol: Computed tomography of the abdomen and pelvis with contrast. 3D rendering (Not supervised by radiologist): MIP and/or 3D reconstructed images were created by the technologist. Radiation optimization: All CT scans at this facility use at least one of these dose optimization techniques: automated exposure control; mA and/or kV adjustment per patient size (includes targeted exams where dose is matched to clinical indication); or iterative reconstruction. Contrast material: ISOVUE; Contrast volume: 70 ml; Contrast route: IV; COMPARISON: CT - [id number] CT abdomen pelvis w con 10/17/2018 10:14 AM FINDINGS: Liver: Normal. No mass. Gallbladder and biliary ducts: Normal. No calcified stones. No ductal dilation. Pancreas: Normal. No ductal dilation. Spleen: Normal. No splenomegaly. Adrenal glands: Normal. No mass. Kidneys and ureters: Right-sided moderate hydronephrosis and hydroureter is noted, no evidence of urolithiasis is noted. Stomach and bowel: Unremarkable. No obstruction. No mucosal thickening. Appendix: No evidence of appendicitis. Intraperitoneal space: Unremarkable. No free air. No significant fluid collection. Vasculature: Unremarkable. No abdominal aortic aneurysm. Lymph nodes: Unremarkable. No enlarged lymph nodes. Urinary bladder: The bladder is markedly distended. Reproductive: Unremarkable as visualized. Bones/joints: Unremarkable. No acute fracture. Soft tissues: Unremarkable. IMPRESSION: 1. Markedly distended bladder, consider decompression if patient is unable to void, possible bladder outlet obstruction. 2. Right-sided hydronephrosis, likely secondary to bladder distension, no evidence of urolithiasis..
--- NOTE | 2025-07-31 00:18 | XR_ITS ---
PROCEDURE INFORMATION: Exam: XR Chest Exam date and time: 07/31/2025 1:21 AM Age: 25 years old Clinical indication: Other: Suspected dka; Additional info: Suspected dka, vomiting TECHNIQUE: Imaging protocol: Radiologic exam of the chest. Views: 1 view. COMPARISON: CT ANGIO CHEST PE PROTOCOL 06/10/2025 7:17 PM FINDINGS: Lungs: Left lower lobe bandlike opacity. Pleural spaces: No pleural effusion. No pneumothorax. Heart/Mediastinum: No cardiomegaly. Bones/joints: Unremarkable. IMPRESSION: Left lower lobe bandlike opacity which may represent atelectasis or scarring.
[2025-07-31 00:36] LABS: Hematocrit 47.7 % (42.0-52.0); Hemoglobin 15.6 g/dL (14.1-18.0); Immature Granulocytes % 1.7 %; Mean Corpuscular HGB Conc 32.7 g/dL (31.8-35.4); Mean Corpuscular Hemoglobin 28.1 pg (27.0-31.2); Mean Corpuscular Volume 85.9 fl (80-94); Nucleated Red Blood Cells % 0 %; Platelet Count 566 K/mm3 (142-424); Red Blood Count 5.55 M/mm3 (4.60-6.20); Red Cell Distribution Width-SD 37.7 fL; White Blood Count 28.8 K/mm3 (4.8-10.8)
[2025-07-31 00:38] LABS: VBG HCO3 7.6 mmol/L (23-30); VBG PCO2 27.5 mmol/L (35-51); VBG PO2 58.4 mmol/L (28-40)
[2025-07-31 00:40] LABS: Albumin Level 5.2 g/dl (3.5-5.0); Chloride 82 mmol/L (98-107); Sodium 129 mmol/L (136-145)
[2025-07-31 00:41] LABS: VBG PH 7.06 mmol/L (7.31-7.41)
[2025-07-31] MEDS: INSULIN REGULAR, HUMAN 100 UNIT in 0.9 % SODIUM CHLORIDE 100 ML 6.06 UNIT IV (00:41)
[2025-07-31 00:42] LABS: Lactate Venous 6.5 mmol/L (0.4-2.0)
[2025-07-31 00:43] LABS: Adenovirus,PCR Not Detected (NotDetected); Chlamydophila Pneumoniae, PCR Not Detected (NotDetected); Coronavirus 19, PCR Not Detected (NotDetected); Coronovirus HKU1,PCR Not Detected (NotDetected); Influenza A, PCR Not Detected (NotDetected); Influenza AH1, 2009 Not Detected (NotDetected); Influenza AH1, PCR Not Detected (NotDetected); Influenza AH3,PCR Not Detected (NotDetected); Influenza B, PCR Not Detected (NotDetected); Mycoplasma Pneumoniae, PCR Not Detected (NotDetected); Parainfluenza 1, PCR Not Detected (NotDetected); Parainfluenza 2, PCR Not Detected (NotDetected); Parainfluenza 3, PCR Not Detected (NotDetected); Parainfluenza 4, PCR Not Detected (NotDetected)
[2025-07-31 00:43] LABS: Alanine Aminotransferase 40 U/L (12-78); Albumin/Globulin Ratio 1.3 (1.1-1.8); Alkaline Phosphatase 191 U/L (38-126); Aspartate Amino Transferase 38 U/L (17-59); Bilirubin,Total 0.9 mg/dl (0.2-1.3); Blood Urea Nitrogen 24 mg/dl (9-20); Creatinine Clearance Estimated 91 mL/min (50-200); Creatinine,Serum 1.20 mg/dl (0.66-1.25); Estimated Glomerular Filt Rate 74 ml/min (>60); GFR (African American) 90 ML/MIN (>60); Globulin 3.9 g/dL (1.3-3.2); Total Protein,Serum 9.1 g/dl (6.3-8.2)
[2025-07-31] MEDS: 0.9 % SODIUM CHLORIDE 1000ML 2,000 ML 999 ML IV (00:43)
[2025-07-31 00:44] LABS: Calcium 10.1 mg/dl (8.4-10.2); Magnesium 2.7 mg/dl (1.6-2.3)
--- NOTE | 2025-07-31 00:47 | ECG_ITS ---
APPROVED REPORT Exam: Resting ECG HR:126 bpm ECG Measurements Heart Rate 126 AXES WA 172 P 92 QRSd 110 QRS 89 QT 317 T 54 QTc 392 Conclusion SINUS TACHYCARDIA ABNORMAL RHYTHM ECG Peaked T waves No STEMI Electronically signed by : IRAIDA LOPEZ, 07/31/2025 03:52:50
[2025-07-31] MEDS: PROMETHAZINE HCL 25MG/ML 1ML VIAL 12.5 MG IV (00:49)
[2025-07-31] MEDS: CALCIUM GLUC IN NACL, ISO-OSM 1 GM/50 ML BAG IV (00:50)
[2025-07-31 00:51] LABS: Lipase 54 U/L (23-300); Phosphorous 11.9 mg/dl (2.5-4.5)
[2025-07-31] MEDS: SODIUM CHLORIDE 0.9% 25ML BAG 25 ML IV (00:51)
[2025-07-31 00:57] LABS: Total Cells Counted 100
--- NOTE | 2025-07-31 00:59 | ED_ITS ---
Discharge Plan Disposition Patient Disposition: Admitted Condition: Serious Prescriptions Prescriptions: No Action (DME) blood sugar diagnostic Strip See Rx Instructions .ROUTE .MEDSUPPLY Qty: 10 Patient Comments: USE TO test 4 TO 6 times PER DAY DIRECTED Rx Instructions: As directed (DME) blood sugar diagnostic [Accu-Chek Guide test strips] Strip See Rx Instructions .ROUTE .MEDSUPPLY Qty: 10 8RF Rx Instructions: As directed Tresiba FlexTouch U-100 100 unit/mL (3 mL) insulin pen 52 unit SQ DAILY Qty: 15 4RF (DME) Dexcom G6 Transmitter Device See Rx Instructions .ROUTE .COMPLEX Qty: 1 1RF Dose Instruction: USE DIRECTED TO TEST BLOOD GLUCOSE LEVEL Rx Instructions: USE DIRECTED TO TEST BLOOD GLUCOSE LEVEL (DME) Dexcom G6 Sensor Device See Rx Instructions .ROUTE .COMPLEX Qty: 3 0RF Dose Instruction: USE DIRECTED TO TEST BLOOD GLUCOSE LEVEL Rx Instructions: USE DIRECTED TO TEST BLOOD GLUCOSE LEVEL lisinopril 2.5 mg tablet 2.5 mg PO DAILY Qty: 90 0RF ibuprofen 800 mg tablet 800 mg PO Q8H Qty: 30 0RF cyclobenzaprine 5 mg tablet 5 mg PO TID PRN (Reason: muscle spasm) Qty: 14 0RF aspirin [Aspir-81] 81 mg tablet,delayed release (DR/EC) 81 mg PO DAILY Qty: 30 2RF (DME) Dexcom G6 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 Machine Tender Misc See Rx Instructions .ROUTE .MEDSUPPLY Qty: 1 0RF Rx Instructions: As directed lidocaine (PF) 20 mg/mL (2 %) solution 50 mg peripheral nerve block ONCE Qty: 2.5 0RF azithromycin [Zithromax Z-Rajesh] 250 mg tablet See Rx Instructions PO .COMPLEX Qty: 6 0RF Rx Instructions: For 250 mg dose pack: take 500 mg today (day 1), then 250 mg for 4 days (days 2-5) PO guaifenesin 1,200 mg tablet extended release 12hr 1,200 mg PO BID Qty: 30 0RF (DME) lancets [OneTouch Delica Plus Lancet] 30 gauge misc See Rx Instructions .ROUTE .COMPLEX Qty: 100 5RF Dose Instruction: USE TO test blood DIRECTED Rx Instructions: USE TO test blood DIRECTED (DME) pen needle, diabetic [Comfort EZ Pen [place]] 31 gauge x 5/16 needle See Rx Instructions .ROUTE .MEDSUPPLY Qty: 1200 0RF Rx Instructions: As directed Fiasp FlexTouch U-100 Insulin 100 unit/mL (3 mL) insulin pen 20 unit SQ ACHS 30 Days Qty: 15 2RF ergocalciferol (vitamin D2) 1,250 mcg (50,000 unit) capsule 50,000 unit PO QWEEK Qty: 4 0RF (DME) inhalational spacing device 1 EACH spacer 1 each MC Q4-6H 14 Days Qty: 1 0RF albuterol sulfate 18 GM HFA aerosol inhaler 1 - 2 puffs IH Q4-6H PRN (Reason: Shortness Of Breath Or Wheezing) Qty: 1 0RF loratadine [Claritin] 10 mg tablet 10 mg PO DAILY Qty: 30 0RF cefdinir 300 mg capsule 300 mg PO BID 10 Days Qty: 20 0RF prednisone 20 mg tablet 20 mg PO BID 7 Days Qty: 14 0RF Referrals Follow up/Referrals: Chidi Ozuna APRN [Primary Care Provider, Medical] - See instructions Clinical Impressions Clinical Impression: DKA (diabetic ketoacidosis), Nausea & vomiting, Hyperkalemia, Sepsis Instructions Patient Instructions: DI for Hyperglycemia in Adults Print Language Print Language: Icelandic Discharge ED Provider: Kay Dickerson Adult HPI General Chief complaint: Hyper/Hypoglycemia Stated complaint: Diabetic emergency Time Seen by Provider: 07/31/25 00:33 Mode of Arrival: EMS Source of Information: Patient and EMS Description of Symptoms (Recalled from ER Triage Doc. by RN): Pt presents to ER via EMS with hyperglycemia. known hx of DM2 and insulin dependent. Per EMS they arrived twice. pt refused to go to hospital after 1st vist. Blood sugar upon EMS arrival the 2nd time: 433. Pt took 30-32 units of prescribed insulin at aprox 2130 and took blood sugar after insulin administration that read 419. Pt also endorses n/v, LUQ abd pain, and throat pain. Pt states that he has been in DKA before. History of Present Illness HPI narrative: 25-year-old male with insulin-dependent diabetes presents to the ER with nausea, vomiting, left upper quadrant abdominal pain, concerns of hyperglycemia. Patient initially called EMS a few hours prior to arrival but refused to come to the hospital. He states he took approximately 30 units of insulin between the first time he called EMS and the second. Reportedly when EMS was out with him the first time his blood sugar was in the 430s, the second time they came out just prior to arrival it was 419. Patient reports sore throat since having multiple episodes of nonbloody, nonbilious emesis. Has a history of previous DKA. Denies dysuria or hematuria. Denies chest pain or difficulty breathing. Reports he has not been able to tolerate anything by mouth since early this afternoon. 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 #1 ea 07/16/20 (Dexcom G6 Finishing Machine Tender) lancets 30 gauge (OneTouch Delica #100 ea 10/15/20 Plus Lancet) pen needle, diabetic 31 gauge x #1,200 ea 10/17/2001/25 (Comfort EZ Pen [place]) blood-glucose sensor (Dexcom G6 #3 ea 08/31/21 Sensor device) blood-glucose transmitter (Dexcom #1 ea 08/31/21 G6 Transmitter device) insulin degludec 100 unit/mL (3 52 unit (0.52 mL) SQ D AILY 08/31/21 mL) subcutaneous pen (Tresiba Diabetes #15 mL FlexTouch U-100 insulin) lisinopril 2.5 mg tablet 2.5 mg PO DAILY #90 tabs insulin aspart 20 unit SQ ACHS 30 days #15 mL 02/01/22 (niacinamide)(U-100) 100 unit/mL(3 mL) subcutaneous pen (Fiasp FlexTouch U-100 Insulin) ergocalciferol (vitamin D2) 1,250 50,000 unit PO QWEEK #4 caps 02/16/22 mcg (50,000 unit) capsule loratadine 10 mg tablet (Claritin) 10 mg PO DAILY #30 tabs 05/28/23 cyclobenzaprine 5 mg tablet 5 mg PO TID PRN muscle spa sm #14 05/02/25 tabs ibuprofen 800 mg tablet 800 mg PO Q8H #30 tabs 05/02 azithromycin 250 mg tablet See Rx Instructions PO .COM PLEX #6 06/10/25 (Zithromax Z-Rajesh) tabs cefdinir 300 mg capsule 300 mg PO BID 10 days #20 ca ps 06/10/25 guaifenesin 1,200 mg tablet, 1,200 mg PO BID #30 tabs 06/10/25 extended release 12 hr prednisone 20 mg tablet 20 mg PO BID 7 days #14 tabs 06/10/25 Allergies Allergy/AdvReac Type Severity Reaction Status Date / Time No Known Allergies Allergy Verified 06/10/25 13:00 [facility] [place] Disclaimer: The information contained in this section may have been updated after the patient was seen, as this information can be updated by other users. Medical History IDDM (insulin dependent diabetes mellitus) Type 1 diabetes Sinusitis BOM (bilateral otitis media) Surgical History History of tonsillectomy Social History Smoking Status: Never smoker alcohol intake: never substance use type: denies use current occupational status: other Travel in the last 8 weeks?: None household members: family housing: house Other Medical History Have you received the Flu Vaccine for this season: No Have you received the Pneumonia Vaccine: No ROS Obtained: Yes Systems reviewed as appropriate & no additional complaints except as documented Per HPI Physical Exam General General appearance: alert Comment: Ill-appearing Head Head exam: atraumatic and normocephalic Eye Eye exam: Present PERRL and EOMI ENT ENT exam: Present mucous membranes moist Neck Neck exam: Present normal inspection and full ROM Chest Chest inspection: Present symmetric chest wall rise Respiratory Respiratory exam: Present normal lung sounds bilaterally and other (Tachypneic but no adventitious sounds, saturating well on room air); Absent respiratory distress, wheezes or stridor Cardiovascular Cardiovascular exam: Present normal rhythm and tachycardia Abdominal Exam Abdominal exam: Present soft and tenderness (Mild left upper quadrant); Absent distention, guarding, rebound or rigidity Extremities Exam Extremities exam: Present full ROM; Absent normal capillary refill (Capillary refill approximately 3 seconds) or edema Back Exam Back exam: Absent CVA tenderness (R) or CVA tenderness (L) Neurological Exam Neurological exam: Present alert and oriented X3; Absent motor sensory deficit Psychiatric Psychiatric exam: Present normal affect and normal mood Skin Skin exam: Present warm and dry Medical Decision Making Medical Records Medical records reviewed: Yes I reviewed the patient's medical records. Screening: Per USPSTF and CDC recommendations, given the prevalence of disease in our region, it is our hospital?s policy to screen for HIV and viral Hepatitis for all patients aged 18 and over and those with ongoing risk factors. Misael Inquiry Pt receiving controlled substance: No Vital Signs: 07/31/25 00:22 07/31/25 01:00 07/31/25 01:16 Temperature 98.2 F Temperature Source Oral Pulse Rate 125 H 125 H Pulse Rate [Left Radial] 129 H Respiratory Rate 27 H 26 H 25 H Blood Pressure Blood Pressure [Left Arm] 116/63 Blood Pressure Mean Blood Pressure Mean [Left Arm] 80 Blood Pressure Source [Left Arm] Automatic Cuff Blood Pressure Position [Left Arm] Supine 02 Sat by Pulse Oximetry 100 100 100 Oxygen Delivery Method Room Air Room Air Room Air 07/31/25 01:18 07/31/25 01:18 07/31/25 01:30 Temperature Temperature Source Pulse Rate 125 H 120 H Pulse Rate [Left Radial] Respiratory Rate 25 H 24 Blood Pressure 122/60 Blood Pressure [Left Arm] Blood Pressure Mean 81 Blood Pressure Mean [Left Arm] Blood Pressure Source [Left Arm] Blood Pressure Position [Left Arm] 02 Sat by Pulse Oximetry 100 99 Oxygen Delivery Method Room Air Room Air 07/31/25 01:45 07/31/25 01:45 07/31/25 02:24 Temperature Temperature Source Pulse Rate 118 H Pulse Rate [Left Radial] Respiratory Rate 24 Blood Pressure 109/49 L Blood Pressure [Left Arm] Blood Pressure Mean 74 Blood Pressure Mean [Left Arm] Blood Pressure Source [Left Arm] Blood Pressure Position [Left Arm] 02 Sat by Pulse Oximetry 97 Oxygen Delivery Method Room Air 07/31/25 02:30 07/31/25 02:30 07/31/25 02:45 Temperature Temperature Source Pulse Rate 113 H Pulse Rate [Left Radial] Respiratory Rate 22 24 Blood Pressure 121/66 Blood Pressure [Left Arm] Blood Pressure Mean 84 Blood Pressure Mean [Left Arm] Blood Pressure Source [Left Arm] Blood Pressure Position [Left Arm] 02 Sat by Pulse Oximetry 99 Oxygen Delivery Method Room Air 07/31/25 02:45 Temperature Temperature Source Pulse Rate Pulse Rate [Left Radial] Respiratory Rate Blood Pressure 107/59 L Blood Pressure [Left Arm] Blood Pressure Mean 76 Blood Pressure Mean [Left Arm] Blood Pressure Source [Left Arm] Blood Pressure Position [Left Arm] 02 Sat by Pulse Oximetry Oxygen Delivery Method Lab Data Lab Results 07/31/25 00:20: WBC 28.8 H*, RBC 5.55, Hgb 15.6, Hct 47.7, MCV 85.9, MCH 28.1, MCHC 32.7, RDW 11.9, Plt Count 566 H, MPV 10.0, Neut % (Auto) 89.4 H, Lymph % (Auto) 5.0 L, [place] % (Auto) 3.2, Eos % (Auto) 0.1, Baso % (Auto) 0.6, Neut # (Auto) 25.8 H, Lymph # (Auto) 1.4, [place] # (Auto) 0.9, Eos # (Auto) 0.0, Baso # (Auto) 0.2, Total Counted 100, Neutrophils % (Manual) 91 H, Band Neutrophils % 1, Lymphocytes % (Manual) 4 L, Monocytes % (Manual) 4, Platelet Estimate Not Reportable, RBC Morphology Not Reportable, Sodium 129 L, Potassium 7.0 H*, C hloride 82 L, Carbon Dioxide < 5 L*, Anion Gap 49.0 H, BUN 24 H, Creatinine 1.20, Estimated Creat Clear 91, Estimated GFR 74, Est GFR ( Amer) 90, G lucose 967 H*, Hemoglobin A1c > 14.0 H, Calcium 10.1, Phosphorus 11.9 H, M agnesium 2.7 H, Total Bilirubin 0.9, AST 38, ALT 40, Alkaline Phosphatase 191 H, Total Protein 9.1 H, Albumin 5.2 H, Globulin 3.9 H, Albumin/Globulin Ratio 1.3, Lipase 54, Acetone Level Moderate, HCV Ab BERTRAND w/Rflx PCR Qn Negative, HIV Ag/Ab Combo Qual Negative 07/31/25 00:29: VBG pH 7.06 L, VBG pCO2 27.5 L, VBG pO2 58.4 H, VBG HCO3 7.6 L, VBG Total CO2 8.5 L, VBG O2 Saturation 81.1 H, VBG Base Excess -22.7 L, VBG Lactic Acid 6.5 H 07/31/25 00:38: Chlamy pneumoniae PCR Not detected, Adenovirus (PCR) Not detected, B. pertussis DNA (PCR) Not detected, Coronavirus OC43 (PCR) Not detected, Coronavirus HKU1 (PCR) Not detected, Coronavirus 229E (PCR) Not detected, SARS-CoV-2 (PCR) Not detected, Coronavirus NL63 (PCR) Not detected, Human Metapneumovir PCR Not detected, Influenza A (H1) PCR Not detected, Influ A (H1N1/09) PCR Not detected, Influenza A (H3) PCR Not detected, Influenza Type A (PCR) Not detected, Influenza Type B (PCR) Not detected, M. pneumoniae (PCR) Not detected, Parainfluenza 1 (PCR) Not detected, Parainfluenza 2 (PCR) Not detected, Parainfluenza 3 (PCR) Not detected, Parainfluenza 4 (PCR) Not detected, RSV (PCR) Not detected, Entero/Rhino (PCR) Not detected 07/31/25 01:30: Lactate 3.8 H 07/31/25 01:43: Random Glucose 818 H* 07/31/25 02:46: Urine Color Yellow, Urine Appearance Clear, Urine pH 6.0, Ur Specific [place] 1.025, Urine Protein Negative, Urine Glucose (UA) 2+, Urine Ketones 3+, Urine Blood Negative, Urine Nitrate Negative, Urine Bilirubin Negative, Urine Urobilinogen 0.2, Ur Leukocyte Esterase Negative, Ur Squamous Epith Cells 5-10, Urine Mucus Trace 07/31/25 00:20 07/31/25 00:20 Orders (Tests/Meds): ED MEDICATIONS Generic Name Dose Route Start Last Admin Trade Name Freq PRN Reason Stop Dose Admin Sodium Chloride 1,000 mls @ 150 mls/hr 07/31/25 02:30 07/31/25 02:39 Sod Chlor 0.9% 1000ml Bag IV 08/30/25 02:29 150 mls/hr .Q6H40M ANDREA Administration Insulin Human Regular 100 unit 101 mls @ 6.06 mls/hr 07/31/25 00:30 07/31/25 02:29 / Sodium Chloride IV 08/30/25 00:29 3 unit/hr .[id number] ANDREA 3.03 mls/hr Protocol Titration 6 UNIT/HR Vancomycin/PEG/NADA/Lysine/Water 1.25 gm in 250 mls @ 125 mls/hr 07/31/25 01:30 07/31/25 02:36 Vancomycin 1.25gm/250ml (Peg) Premix IV 07/31/25 03:29 125 mls/hr ONCE ONE Administration Miscellaneous 1 each 07/31/25 01:15 07/31/25 02:28 Vancomycin Consult Request NOTAPPLIC 08/30/25 01:14 Not Given CONSULT PHARMACY [facility] Discontinued Medications Generic Name Dose Route Start Last Admin Trade Name Freq PRN Reason Stop Dose Admin Sodium Chloride 2,000 mls @ 999 mls/hr 07/31/25 00:30 07/31/25 03:01 Sod Chlor 0.9% 1000ml Bag IV 08/30/25 00:29 Not Given .Q2H1M ANDREA Calcium Gluconate/Sodium Chloride 1 gm in 50 mls @ 50 mls/hr 07/31/25 00:44 07/31/25 02:59 Calcium Gluconate 1,000mg/50ml Nacl Premix IV 07/31/25 01:43 Infused ONCE ONE Infusion Piperacillin Sod/Tazobactam 100 mls @ 200 mls/hr 07/31/25 01:06 07/31/25 03:00 Sod 4.5 gm/ Sodium Chloride IV 07/31/25 01:35 Infused ONCE ONE Infusion Iopamidol 70 ml 07/31/25 02:28 07/31/25 02:29 Iopamidol-370 (76%);100ml Bottle IV 07/31/25 02:29 70 ml ONCE ONE Administration Promethazine HCl 12.5 mg 07/31/25 00:40 07/31/25 00:49 Promethazine Hcl 25mg/Ml 1ml Vial IV 07/31/25 00:41 12.5 mg ONCE ONE Administration Sodium Chloride 25 ml 07/31/25 00:40 07/31/25 00:51 Sodium Chloride 0.9% 25ml Bag IV 07/31/25 00:41 25 ml ONCE ONE Administration Sodium Chloride 50 ml 07/31/25 02:28 07/31/25 02:29 0.9 % Sodium Chloride 50 Ml Vial IV 07/31/25 02:29 50 ml ONCE ONE Administration Sodium Chloride 10 ml 07/31/25 02:28 07/31/25 02:29 Sodium Chloride 0.9% 10ml Syr (Rad Only) IV 07/31/25 02:29 10 ml ONCE ONE Administration ORDERS Category Date Time Status CT abdomen pelvis w con Stat Cat Scan 07/31/25 00:[address] angio chest PE protocol Stat Cat Scan 07/31/25 01:25 Completed XR chest portable Stat Exams 07/31/25 00:18 Completed Acetone, Serum (Rapid) Stat Lab 07/31/25 00:20 Completed Complete Blood Count Auto Diff Stat Lab 07/31/25 00:20 Completed Comprehensive Metabolic Panel Stat Lab 07/31/25 00:20 Completed Full Resp Panel w/COVID ([facility]) Routine Lab 07/31/25 00:38 Completed Glucose,Random Stat Lab 07/31/25 01:43 Completed Glucose,Random Stat Lab 07/31/25 02:55 Received HIV Combo Stat Lab 07/31/25 00:20 Completed Hemoglobin A1C Stat Lab 07/31/25 00:20 Completed Hepatitis C Ab Qual. W/ RFX Stat Lab 07/31/25 00:20 Completed Lactic Acid Stat Lab 07/31/25 01:30 Completed Lipase Stat Lab 07/31/25 00:20 Completed Magnesium Stat Lab 07/31/25 00:20 Completed Phosphorous Stat Lab 07/31/25 00:20 Completed Strep Scrn Group A (Rapid) Stat Lab 07/31/25 00:17 Ordered Urinalysis and Microscopic Stat Lab 07/31/25 02:46 Completed Blood Culture Stat Micro 07/31/25 00:50 Ordered Urine Culture Stat Micro 07/31/25 02:46 Received Venous Blood Gas Stat RT 07/31/25 00:29 Completed Medical Decision Narrative: In summary, this 25-year-old male with comorbidities described in the HPI presents to the emergency department today with abdominal pain, nausea, vomiting, hyperglycemia. On initial evaluation patient is tachycardic and tachypneic but otherwise hemodynamically stable, afebrile, GCS 15, physical exam notable for left upper quadrant tenderness without rebound or guarding, no peritonitic findings. Differential diagnosis includes but is not limited to DKA for which I have highest suspicion given patient is tachypneic, significantly hyperglycemic with fingerstick blood glucose on arrival to the ER reading high on our [id number] glucose. I did also consider HHS, urinary tract infection, sepsis, pneumonia, viral syndrome, pancreatitis, bowel obstruction, intra- abdominal mass, intra-abdominal infection, electrolyte abnormality, dehydration, among others. Based on these concerns, I ordered hematologic and serum labs, blood cultures, urine studies, chest x-ray, CT abdomen pelvis, cardiac workup. Patient is being started on IV fluid bolus as well as insulin infusion. Receiving Phenergan for nausea because despite having received Zofran from EMS he is still having nausea and vomiting. I received a phone call from respiratory reporting that patient's pH is 7.06, pCO2 low, bicarb low, lactic on VBG 6.5, patient's potassium on VBG was 6.6. ECG personally interpreted demonstrates sinus tachycardia, rate 126, normal axis, normal RI and QTc, peaked T waves, no STEMI. With hyperkalemia on VBG as well as the result of the EKG with hyperacute appearing T waves, will treat with calcium gluconate. Patient is already receiving insulin infusion which should ship potassium intracellularly. Once patient is able to tolerate oral intake will consider Kayexalate for potassium excretion. Labs personally reviewed demonstrate significant leukocytosis WBC 28.8 concerning for sepsis. Broad-spectrum antibiotics ordered. Patient is already receiving a fluid bolus. Patient has no anemia, thrombocythemia is present likely due to dehydration. CMP with hyperkalemia, hyponatremia which is expected given patient's significantly elevated blood glucose which was 967 on his initial labs. CO2 less than 5, anion gap 49, prerenal azotemia, HbA1c over 14 which increases my suspicion that patient has not in fact regularly taking his insulin or managing his diabetes closely at home. Lactic recheck 3.8, improving. Patient has hypermagnesemia and hyperphosphatemia, not acutely actionable at this time. Lipase normal at 54 reassuring is pancreatitis, full respiratory panel negative for all analytes. Moderate serum acetone. XR personally interpreted demonstrates abnormality of the left lower lobe possible infiltrate versus atelectasis, see radiology read for final interpretation. CT imaging personally interpreted demonstrate []. On reassessment patient's heart rate is improving, he remains GCS 15. Patient requires admission for continued management, he and his fianc?e at bedside are agreeable to this. I reached out to the hospitalist and discussed this case at length with him. He graciously accepted the patient for ICU admission. Patient was admitted in serious but currently stable condition. Critical Care Critical Care Time Critical Care Time: Yes Attestation: On 07/31/25, the high probability of a clinically significant, sudden or life threatening deterioration of the following system(s) required my full and direct attention, intervention and personal management. The time I documented below is in addition to time spent performing reported procedures but includes the following listed in this critical care notation. Total Time Total Critical Care Time: 75
[2025-07-31 01:04] LABS: Anion Gap 49.0 mEq/L (5-15)
--- NOTE | 2025-07-31 01:08 | PC.NURSE ---
This RN took pt's BS and resulted HIGH at 0030. aware
[2025-07-31 01:11] LABS: Hemoglobin A1C > 14.0 % (4.0-6.0)
[2025-07-31 01:21] LABS: Acetone, Serum (Rapid) Moderate (None Detect)
--- NOTE | 2025-07-31 01:25 | CT_ITS ---
PROCEDURE INFORMATION: Exam: CTA Chest With Contrast Exam date and time: 07/31/2025 2:06 AM Age: 25 years old Clinical indication: Other: Tachy dka; Additional info: Tachy dka, abnormality L lung on XR TECHNIQUE: Imaging protocol: Computed tomographic angiography of the chest with contrast. Exam focused on the arteries. 3D rendering (Not supervised by radiologist): MIP and/or 3D reconstructed images were created by the technologist. Radiation optimization: All CT scans at this facility use at least one of these dose optimization techniques: automated exposure control; mA and/or kV adjustment per patient size (includes targeted exams where dose is matched to clinical indication); or iterative reconstruction. Contrast material: ISOVUE; Contrast volume: 70 ml; Contrast route: INTRAVENOUS (IV); COMPARISON: CT ANGIO CHEST PE PROTOCOL 06/10/2025 7:17 PM FINDINGS: Pulmonary arteries: Normal. No pulmonary emboli. Aorta: Unremarkable. No aortic aneurysm. No aortic dissection. Lungs: Focal area of consolidation in the left lower lobe.. No consolidation. No masses. Pleural spaces: Unremarkable. No pneumothorax. No pleural effusion. Heart: No coronary calcification is noted. No cardiomegaly. No pericardial effusion. Lymph nodes: Unremarkable. No enlarged lymph nodes. Bones/joints: Stable superior endplate fracture T4. No acute fracture. Soft tissues: Unremarkable. IMPRESSION: 1. No evidence of pulmonary embolus. 2. Focal consolidation in the left lower lobe likely representing infiltrate.
[2025-07-31 01:41] LABS: Hepatitis C Ab Qual. W/ RFX NEGATIVE (Negative)
--- NOTE | 2025-07-31 01:45 | PC.NURSE ---
Glucose taken at 0140 and read HIGH; stat glucose ordered at this time via protocol. MD dorsey
[2025-07-31 01:52] LABS: Carbon Dioxide < 5 mmol/L (22.0-30.0); Potassium 7.0 mmoL/L (3.5-5.1)
[2025-07-31 01:53] LABS: Glucose 967 mg/dl (74-100)
[2025-07-31] MEDS: PIPERACILLIN/TAZO 4.5 GM in 0.9 % SODIUM CHLORIDE 100 ML IV (01:58)
--- NOTE | 2025-07-31 02:06 | PC.NURSE ---
Pt to CT with this RN and appropriate monitoring as indicated.
[2025-07-31] MEDS: SODIUM CHLORIDE 0.9% 10ML SYR (RAD ONLY) 10 ML IV (02:29)
[2025-07-31] MEDS: 0.9 % SODIUM CHLORIDE 50 ML VIAL IV (02:29)
[2025-07-31] MEDS: IOPAMIDOL-370 (76%);100ML BOTTLE 70 ML IV (02:29)
[2025-07-31] MEDS: VANCOMYCIN/WATER FOR INJ (PEG) 1.25 GM/250 ML PIGGYBACK IV (02:36)
[2025-07-31] MEDS: 0.9 % SODIUM CHLORIDE 1000ML 1,000 ML 150 ML IV ×2 (02:39→20:15)
--- NOTE | 2025-07-31 02:49 | PC.NURSE ---
PT returns back to room from CT safely
[2025-07-31 02:51] LABS: Microscopic, Urine URINE MICROSCOPIC (MICROSCOPIC)
--- NOTE | 2025-07-31 02:56 | PC.NURSE ---
Fingerstick was obtained at 0240 and resulted HIGH. Stat glucose ordered at this time per protocol. notified
[2025-07-31 03:03] LABS: Bilirubin,Urine Negative (Negative); Color,Urine YELLOW (Yellow); Glucose,Urine (UA) 2+ (Negative); Ketones,Urine 3+ (Negative); Leukocyte Esterase,Urine Negative (Negative); PH,Urine 6.0 (5.0-8.5); Protein,Urine Negative (Negative); Specific Gravity, Urine 1.025 (1.005-1.030); Urobilinogen,Urine 0.2 EU/dl (0.2)
[2025-07-31 03:05] LABS: Mucus,Urine Trace /lpf
--- NOTE | 2025-07-31 03:15 | PC.NURSE ---
called for bed assignment
--- NOTE | 2025-07-31 03:35 | P.HP_ITS ---
<Statement entered by Hayden Domínguez MD - 08/05/25 11:09> Agree with plan of care as outlined by the [facility] [employer]. History of Present Illness *Admission Date: 07/31/25 *Reason for visit:: Nausea, vomiting, abdominal pain *History of present illness: This is a 25-year-old male who has a past medical history significant for type 1 diabetes who presents with a chief complaint of abdominal pain, nausea, and vomiting. Due to patient's symptoms, patient presented to the emergency room for evaluation. While in the emergency room, patient CT scan of the chest/abdomen/pelvis revealed focal consolidation in the left lower lobe likely representing infiltrate, and markedly distended bladder, and right sided hydronephrosis without evidence of urolithiasis. Moreover, patient's blood glucose was greater than 900 and his anion gap was 41. As a result, hospital medicine was consulted for further management. During my evaluation of the patient, patient states he has not felt well for approximately 1 week. He reports having left upper quadrant abdominal pain and today he started having nausea with 1 episode of bilious emesis. Patient also states he has been having a sore throat. He has been a type I diabetic since the age of 4, and patient's presenting hemoglobin A1c was 14. Patient states he is currently prescribed 7030 sliding scale before meals and Lantus 30 units daily. He voices compliance with this regimen and his last hemoglobin per his account 6 months ago was 9. He is currently denying any chest pain, lightheadedness, dizziness, fever, chills, rigors, shortness of breath, dyspnea, headache, or diarrhea. Additional pertinent values obtained include a white blood cell count of 28.8, platelet count of 566, neutrophils 89.4%, blood gas 7.06, pCO2 of 27.5, bicarb of 7.6, potassium of 7, sodium 129, chloride of 82, carbon dioxide less than 5, BUN of 24, blood glucose of 967, hemoglobin A1c greater than 14, phosphorus of 11.9, magnesium of 2.7,123 alkaline phosphate of 191, total protein 9.1, albumin of 5.2, and ketones are moderate. [facility] Disclaimer: The information contained in this section may have been updated after the patient was seen, as this information can be updated by other users. Medical History (Updated 07/31/25 @ 03:48 by Edison Shaikh APRN) Hyponatremia IDDM (insulin dependent diabetes mellitus) Type 1 diabetes Sinusitis BOM (bilateral otitis media) Surgical History History of tonsillectomy Social History Smoking Status: Never smoker alcohol intake: never substance use type: denies use current occupational status: other Travel in the last 8 weeks?: None household members: family housing: house Other Medical History Have you received the Flu Vaccine for this season: No Have you received the Pneumonia Vaccine: No Review of Systems Review of Systems Review of systems:: pertinent systems reviewed and negative unless documented below Constitutional Constitutional: Reports system reviewed and no additional complaints, except as documented Eyes Eyes: Reports system reviewed and no additional complaints, except as documented ENT Ears, Nose, Mouth, and Throat: Reports system reviewed and no additional complai nts, except as documented *Cardiovascular Cardiovascular: Reports system reviewed and no additional complaints, except as documented *Respiratory Respiratory: Reports system reviewed and no additional complaints, except as documented *Gastrointestinal Gastrointestinal: Reports abdominal pain and Reports vomiting *Genitourinary Genitourinary: Reports system reviewed and no additional complaints, except as documented *Musculoskeletal Musculoskeletal: Reports system reviewed and no additional complaints, except as documented Integumentary/Breasts Skin/Breast: Reports system reviewed and no additional complaints, except as documented *Neurologic Neurologic: Reports system reviewed and no additional complaints, except as documented Psychiatric Psychiatric: Reports system reviewed and no additional complaints, except as documented Endocrine Endocrine: Reports system reviewed and no additional complaints, except as documented Hematologic/Lymphatic Hematologic/Lymphatic: Reports system reviewed and no additional complaints, except as documented Allergic/Immunologic Allergic/Immunologic: Reports system reviewed and no additional complaints, except as documented Meds Home Medications and Allergies Home Medications ?Medication ?Instructions ?Recorded ?Confirmed ?Type albuterol sulfate 90 mcg/actuation 1 - 2 puffs inhalat ion Q4-6H PRN 12/08/19 06/10/25 Rx aerosol inhaler Shortness Of Breath Or Wheez ing #1 inh inhalational spacing device ##1 12/08/19 06/10/25 Rx blood sugar diagnostic #10 ea 02/07/20 06/10/25 His tory blood sugar diagnostic (Accu-Chek #10 ea 02/07/2005/14 Rx Guide test strips) aspirin 81 mg tablet,delayed 81 mg PO DAILY #30 tabs 0 03/12/20 06/10/25 Rx release (Aspir-) blood-glucose,vehicle service agent,cont #1 ea 07/16/20 06/10/25 Rx (Dexcom G6 Flight Surveyor) lancets 30 gauge (OneTouch Delica #100 ea 10/15/20 Rx Plus Lancet) pen needle, diabetic 31 gauge x #1,200 ea 10/17/20 Rx 5/16 (Comfort EZ Pen Elmer) blood-glucose sensor (Dexcom G6 #3 ea 08/31/21 5 Rx Sensor device) blood-glucose transmitter (Dexcom #1 ea 08/31/2106/10 Rx G6 Transmitter device) insulin degludec 100 unit/mL (3 52 unit (0.52 mL) SQ D AILY 08/31/21 06/10/25 Rx mL) subcutaneous pen (Tresiba Diabetes #15 mL FlexTouch U-100 insulin) lisinopril 2.5 mg tablet 2.5 mg PO DAILY #90 tabs 06/10/25 Rx insulin aspart 20 unit SQ ACHS 30 days #15 mL 02/01/22 06/10/25 Rx (niacinamide)(U-100) 100 unit/mL(3 mL) subcutaneous pen (Fiasp FlexTouch U-100 Insulin) ergocalciferol (vitamin D2) 1,250 50,000 unit PO QWEEK #4 caps 02/16/22 06/10/25 Rx mcg (50,000 unit) capsule loratadine 10 mg tablet (Claritin) 10 mg PO DAILY #30 tabs 05/28/23 06/10/25 Rx cyclobenzaprine 5 mg tablet 5 mg PO TID PRN muscle spa sm #14 05/02/25 06/10/25 Rx tabs ibuprofen 800 mg tablet 800 mg PO Q8H #30 tabs 05/0206/10/25 Rx azithromycin 250 mg tablet See Rx Instructions PO .COM PLEX #6 06/10/25 06/10/25 Rx (Zithromax Z-Rajesh) tabs cefdinir 300 mg capsule 300 mg PO BID 10 days #20 ca ps 06/10/25 Rx guaifenesin 1,200 mg tablet, 1,200 mg PO BID #30 tabs 06/10/25 06/10/25 Rx extended release 12 hr prednisone 20 mg tablet 20 mg PO BID 7 days #14 tabs 06/10/25 Rx New Prescriptions to Start Prescriptions: Allergies Allergy/AdvReac Type Severity Reaction Status Date / Time No Known Allergies Allergy Verified 06/10/25 13:00 Exam Data for Last 24 hours Vital signs and Labs for Last 24 Hours: Temp Pulse Resp BP Pulse Ox O2 Del Method 98.2 F 113 H 24 107/59 L 99 Room Air 07/31/25 00:22 07/31/25 02:45 07/31/25 02:45 07/31/25 02:45 07/31/25 02:45 07/31/25 02:45 Laboratory Results - last 24 hr 07/31/25 00:20: WBC 28.8 H*, RBC 5.55, Hgb 15.6, Hct 47.7, MCV 85.9, MCH 28.1, MCHC 32.7, RDW 11.9, Plt Count 566 H, MPV 10.0, Neut % (Auto) 89.4 H, Lymph % (Auto) 5.0 L, Henry % (Auto) 3.2, Eos % (Auto) 0.1, Baso % (Auto) 0.6, Neut # (Auto) 25.8 H, Lymph # (Auto) 1.4, Henry # (Auto) 0.9, Eos # (Auto) 0.0, Baso # (Auto) 0.2, Total Counted 100, Neutrophils % (Manual) 91 H, Band Neutrophils % 1, Lymphocytes % (Manual) 4 L, Monocytes % (Manual) 4, Platelet Estimate Not Reportable, RBC Morphology Not Reportable, Sodium 129 L, Potassium 7.0 H*, Chloride 82 L, Carbon Dioxide < 5 L*, Anion Gap 49.0 H, BUN 24 H, Creatinine 1.20, Estimated Creat Clear 91, Estimated GFR 74, Est GFR ( Amer) 90, Glucose 967 H*, Hemoglobin A1c > 14.0 H, Calcium 10.1, Phosphorus 11.9 H, Magne sium 2.7 H, Total Bilirubin 0.9, AST 38, ALT 40, Alkaline Phosphatase 191 H, Total Protein 9.1 H, Albumin 5.2 H, Globulin 3.9 H, Albumin/Globulin Ratio 1.3, Lipase 54, Acetone Level Moderate, HCV Ab BERTRAND w/Rflx PCR Qn Negative, HIV Ag/Ab Combo Qual Negative 07/31/25 00:29: VBG pH 7.06 L, VBG pCO2 27.5 L, VBG pO2 58.4 H, VBG HCO3 7.6 L, VBG Total CO2 8.5 L, VBG O2 Saturation 81.1 H, VBG Base Excess -22.7 L, VBG Lactic Acid 6.5 H 07/31/25 00:38: Chlamy pneumoniae PCR Not detected, Adenovirus (PCR) Not detected, B. pertussis DNA (PCR) Not detected, Coronavirus OC43 (PCR) Not detected, Coronavirus HKU1 (PCR) Not detected, Coronavirus 229E (PCR) Not detected, SARS-CoV-2 (PCR) Not detected, Coronavirus NL63 (PCR) Not detected, Human Metapneumovir PCR Not detected, Influenza A (H1) PCR Not detected, Influ A (H1N1/09) PCR Not detected, Influenza A (H3) PCR Not detected, Influenza Type A (PCR) Not detected, Influenza Type B (PCR) Not detected, M. pneumoniae (PCR) Not detected, Parainfluenza 1 (PCR) Not detected, Parainfluenza 2 (PCR) Not detected, Parainfluenza 3 (PCR) Not detected, Parainfluenza 4 (PCR) Not detected, RSV (PCR) Not detected, Entero/Rhino (PCR) Not detected 07/31/25 01:30: Lactate 3.8 H 07/31/25 01:43: Random Glucose 818 H* 07/31/25 02:46: Urine Color Yellow, Urine Appearance Clear, Urine pH 6.0, Ur Specific [place] 1.025, Urine Protein Negative, Urine Glucose (UA) 2+, Urine Ketones 3+, Urine Blood Negative, Urine Nitrate Negative, Urine Bilirubin Negative, Urine Urobilinogen 0.2, Ur Leukocyte Esterase Negative, Ur Squamous Epith Cells 5-10, Urine Mucus Trace 07/31/25 02:55: Random Glucose 690 H* I & O for Last 24 hours: Intake & Output 1107/29/25 07/30/25 07/31/25 23:59 23:59 23:59 23:59 Intake Total 2163.989 / 2163.989 Balance 2163.989 / 2163.989 Weight 68.039 kg Constitutional Constitutional: no acute distress, thin and cooperative *Routine HEENT Exam Head: Present normocephalic and atraumatic Eye: Present EOMI and PERRL ENT: Present mucous membranes moist *Routine Neck Exam Neck: Present supple, full ROM and trachea midline *Routine Respiratory Exam Respiratory: Present diminished air movement, normal respiratory effort, able to speak in complete sentences and symmetric chest movement *Routine Cardiovascular Exam Cardiovascular: Present RRR, Normal S1, Normal S2 and tachycardia *Routine Abdominal Exam Abdominal: Present soft and normoactive bowel sounds *Routine Rectal Exam Rectal:: deferred *Routine Genitalia Exam Genitalia:: deferred *Routine Extremities Exam Extremities: Present full ROM, pulses intact and normal capillary refill Routine Back/Spine/Pelvis Exam Back/Spine: Present full ROM *Routine Skin Exam Skin: Present intact, dry, warm and normal turgor *Routine Neurological Exam Neurological: Present alert, oriented X3, CN II-XII intact, moving all extremities and normal speech Routine Psychiatric Exam Psychiatric: Present normal affect, normal thought process, cooperative, good insight and good judgment H&P: Result Impressions 25-year-old male who has known type 1 diabetes presents with a chief complaint of abdominal pain found to be in DKA, meeting sepsis criteria, and has community-acquired left lower lobe pneumonia Assessment and Plan *Assessment and plan (1) Sepsis: Status: Acute Qualifiers: Sepsis acute organ dysfunction status: unspecified Sepsis type: sepsis due to unspecified organism Qualified Code(s): A41.9 - Sepsis, unspecified organism Category: Medical Code(s): A41.9 - Sepsis, unspecified organism (2) DKA (diabetic ketoacidosis): Status: Acute Qualifiers: Diabetes mellitus complication detail: without coma Diabetes mellitus type: other specified (including JENY) Qualified Code(s): E13.10 - Other specified diabetes mellitus with ketoacidosis without coma Category: Medical Code(s): E11.10 - Type 2 diabetes mellitus with ketoacidosis without coma (3) Pneumonia: Status: Acute Qualifiers: Laterality: left Lung location: lower lobe of lung Pneumonia type: due to unspecified organism Qualified Code(s): J18.9 - Pneumonia, unspecified org anism Category: Medical Code(s): J18.9 - Pneumonia, unspecified organism (4) Hyperkalemia: Status: Acute Category: Medical Code(s): E87.5 - Hyperkalemia (5) Metabolic acidosis: Status: Acute Category: Medical Code(s): E87.20 - Acidosis, unspecified (6) Hydronephrosis: Status: Acute Qualifiers: Hydronephrosis type: with other ureteral stricture Qualified Code(s): N13.1 - Hydronephrosis with ureteral stricture, not elsewhere classified Category: Medical Code(s): N13.30 - Unspecified hydronephrosis (7) Urinary retention: Status: Acute Category: Medical Code(s): R33.9 - Retention of urine, unspecified (8) Thrombocytosis: Status: Acute Category: Medical Code(s): D75.839 - Thrombocytosis, unspecified (9) Leukocytosis: Status: Acute Qualifiers: Leukocytosis type: unspecified Qualified Code(s): D72.829 - Elevated white blood cell count, unspecified Category: Medical Code(s): D72.829 - Elevated white blood cell count, unspecified (10) Hyponatremia: Status: Acute Category: Medical Code(s): E87.1 - Hypo-osmolality and hyponatremia (11) Hyperphosphatemia: Status: Acute Category: Medical Code(s): E83.39 - Other disorders of phosphorus metabolism (12) Hypermagnesemia: Status: Acute Category: Medical Code(s): E83.41 - Hypermagnesemia (13) Dehydration: Status: Acute Category: Medical Code(s): E86.0 - Dehydration (14) Lactic acidosis: Status: Acute Category: Medical Code(s): E87.20 - Acidosis, unspecified Plan Assessment: Sepsis Left lower lobe community-acquired pneumonia: Most likely bacterial Leukocytosis with left shift Lactic acidosis - Patient is currently meeting sepsis criteria with a source of left lower lobe pneumonia, elevated white blood cell count, and elevated lactic level - Patient received 2 L of IV hydration this is almost the equivalent of 30 mL/kg of body weight of IV hydration we will give the remaining 40 mL over time - Patient has stable blood pressure so no need to give the additional 40 mL now - Sepsis reperfusion screening performed - Will repeat patient's venous lactic acid - Will continue 3.375 g of Zosyn IV every 6 hours (patient can be considered immunocompromise due to significantly elevated A1c) - 100 mg doxycycline p.o. twice daily - Blood cultures x 2 DKA: Patient has anion gap was 41 Metabolic acidosis - Will continue insulin drip - BMP every 4 hours - Will obtain stat BMP now due to elevated potassium - Will obtain lipid profile - Educated patient on importance of adherence to insulin regimen and the consequences of noncompliance leading to cardiovascular disease - Patient states his last hemoglobin A1c was 9 6 months ago. And now it is greater than 14 this is concerning for noncompliance -Normal saline at 250 mL an hour while blood glucose is greater than 250 mg/dL -Once blood glucose is less than 250 mg/dL, will change IV fluid to half-normal saline at 150 mL an hour -Blood glucose monitoring every hour Hyperkalemia - Patient did receive some of the Manuel cocktail while in the emergency room - Will recheck potassium now - If potassium is still elevated we will repeat Manuel cocktail to include calcium gluconate, sodium bicarbonate, continue with insulin drip, and maybe 1 dose of Lokelma Urinary retention Right hydroureteronephrosis - Patient states he was able to void in the emergency room - Will BladderScan patient once he presents to [facility] unit - If bladder volume is greater than 400 we will In-N-Out cath - Will consider postvoid residuals to ensure patient is not retaining any urine - If patient is retaining a significant amount of urine greater than 200 post micturition, will anchor Sutton catheter Hyperphosphatemia Hyper magnesium Thrombocytosis Dehydration - Will give IV hydration as listed above Plan: Admit patient to the intensive care unit Activity as tolerated CBC/BMP daily Sips and chips and meds 40 mg Lovenox subcu daily for DVT prophylax 5 mg [place] p.o. every 4 hours for moderate pain 4 mg Zofran IV push every 8 hours for nausea vomit 3.375 g Zosyn IV every 6 hours Full code Total critical care time of 40 minutes I will discussed this case with attending physician Dr. Domínguez and I look forward to more input
--- NOTE | 2025-07-31 03:54 | PC.NURSE ---
Fingerstick obtained at 0340 and resulted HIGH. Ordered BMP collected and stat glucose to be resulted off of BMP. notified
--- NOTE | 2025-07-31 03:56 | PC.NURSE ---
Addendum entered by Fatimah Paniagua RN 07/31/25 03:56: Report called to Manasa MUÑOZ on ICU at 0320 Original Note: Report called to Manasa MUÑOZ on ICU
--- NOTE | 2025-07-31 03:57 | EXP.SEPSISRE ---
[facility] Tissue Perfusion Eval Sepsis Re-Evaluation Performed: Yes Date Performed: 07/31/25 Time Performed: 03:58
[2025-07-31 04:03] LABS: Chloride 99 mmol/L (98-107); Potassium 3.6 mmoL/L (3.5-5.1); Sodium 127 mmol/L (136-145)
[2025-07-31 04:06] LABS: Blood Urea Nitrogen 15 mg/dl (9-20); Creatinine Clearance Estimated 219 mL/min (50-200); Creatinine,Serum 0.50 mg/dl (0.66-1.25); Estimated Glomerular Filt Rate 204 ml/min (>60); GFR (African American) 247 ML/MIN (>60); Glucose 397 mg/dl (74-100)
[2025-07-31 04:08] LABS: Anion Gap 26.6 mEq/L (5-15)
[2025-07-31 04:11] LABS: Calcium 4.9 mg/dl (8.4-10.2); Carbon Dioxide < 5 mmol/L (22.0-30.0)
--- NOTE | 2025-07-31 04:24 | PC.NURSE ---
Patient refused CRE swab at this time, patient was educated on CRE protocol, Manasa Newsome RN aware.
[2025-07-31 04:26] LABS: POC Glucose,Bedside 561 gm/dL (70-110)
--- NOTE | 2025-07-31 04:27 | PC.NURSE ---
Patient arrived to ICU unit via ED stretcher from ED @03:57am
--- NOTE | 2025-07-31 04:32 | PC.NURSE ---
spoke to Brett Hospitalist at this time regarding fluid orders provider placed. Provider ordered for pt to get NS @250ml/hr, however the insulin drip protocol states to put NS @150mL/hr so this nurse called to verify. Brett stated to continue with the order he placed at this time.
[2025-07-31] MEDS: 0.9 % SODIUM CHLORIDE 1000ML 1,000 ML 250 ML IV ×4 (04:34→15:39)
[2025-07-31] MEDS: INSULIN REGULAR, HUMAN 100 UNIT in 0.9 % SODIUM CHLORIDE 100 ML IV (04:35)
[2025-07-31 04:41] LABS: Reflex Lactic Add Lactic Reflex
[2025-07-31] MEDS: CALCIUM GLUC IN NACL, ISO-OSM 2 GM/100 ML BAG IV (04:46)
[2025-07-31 05:02] LABS: POC Glucose,Bedside 524 gm/dL (70-110)
[2025-07-31 05:30] LABS: Lactic Acid Follow Up (RFLX 1) 1.7 mmol/L (0.7-2.1)
[2025-07-31 05:31] LABS: Alanine Aminotransferase 21 U/L (12-78); Albumin Level 4.9 g/dl (3.5-5.0); Albumin/Globulin Ratio 1.6 (1.1-1.8); Alkaline Phosphatase 171 U/L (38-126); Aspartate Amino Transferase 25 U/L (17-59); Bilirubin,Total 0.7 mg/dl (0.2-1.3); Blood Urea Nitrogen 21 mg/dl (9-20); Calcium 9.8 mg/dl (8.4-10.2); Chloride 99 mmol/L (98-107); Cholesterol 183 mg/dl (140-200); Creatinine Clearance Estimated 95 mL/min (50-200); Creatinine,Serum 1.10 mg/dl (0.66-1.25); Estimated Glomerular Filt Rate 82 ml/min (>60); GFR (African American) 100 ML/MIN (>60); Globulin 3.0 g/dL (1.3-3.2); HDL Cholesterol 62 mg/dl (40-60); Sodium 131 mmol/L (136-145); Total Protein,Serum 7.9 g/dl (6.3-8.2); Triglycerides 120 mg/dl (30-150)
[2025-07-31 05:47] LABS: Anion Gap 33.0 mEq/L (5-15)
[2025-07-31 05:48] LABS: Carbon Dioxide < 5 mmol/L (22.0-30.0); Glucose 621 mg/dl (74-100); Potassium 6.0 mmoL/L (3.5-5.1)
[2025-07-31] MEDS: SODIUM BICARB 8.4% 50ML SYRINGE (CRASH CART) 100 MEQ IV (06:05)
[2025-07-31 06:19] LABS: POC Glucose,Bedside 481 gm/dL (70-110)
[2025-07-31 07:04] LABS: POC Glucose,Bedside 438 gm/dL (70-110)
--- NOTE | 2025-07-31 08:15 | [facility].PHAAMS2 ---
- Antimicrobial Stewardship Review culture & sensitivity review Stewardship interventions: culture & sensitivity review (WBC 28.8K, ADMITTED WITH DKA, AFEBRILE, CX PENDING, CURRENTLY ON DOXYCYCLINE AND ZOSYN.)
[2025-07-31 08:26] LABS: Anion Gap 29.0 mEq/L (5-15); Blood Urea Nitrogen 19 mg/dl (9-20); Calcium 10.1 mg/dl (8.4-10.2); Chloride 101 mmol/L (98-107); Creatinine Clearance Estimated 116 mL/min (50-200); Creatinine,Serum 0.90 mg/dl (0.66-1.25); Estimated Glomerular Filt Rate 104 ml/min (>60); GFR (African American) 125 ML/MIN (>60); Potassium 5.0 mmoL/L (3.5-5.1); Sodium 134 mmol/L (136-145)
[2025-07-31 08:34] LABS: Carbon Dioxide 9 mmol/L (22.0-30.0)
[2025-07-31 08:35] LABS: Glucose 444 mg/dl (74-100)
--- NOTE | 2025-07-31 08:43 | [facility].PHAINT1 ---
Pharmacy Intervention Comments: MEDICATION RECONCILIATION COMPLETED ON PATIENT USING EXTERNAL FILL HISTORY FROM PHARMACY AND H&P. -MIKEY NICOLE, ROWDYD
[2025-07-31] MEDS: PIPERACILLIN/TAZO 3.375 GM in 0.9 % SODIUM CHLORIDE 50 ML IV ×3 (08:48→21:22)
[2025-07-31] MEDS: DOXYCYCLINE HYCL 100 MG TABLET PO ×2 (08:48→21:08)
[2025-07-31 08:51] LABS: Strep Scrn Group A (Rapid) Negative (Negative)
[2025-07-31 09:21] LABS: POC Glucose,Bedside 338 gm/dL (70-110)
[2025-07-31 10:16] LABS: POC Glucose,Bedside 331 gm/dL (70-110)
[2025-07-31 11:12] LABS: POC Glucose,Bedside 285 gm/dL (70-110)
[2025-07-31 12:42] LABS: POC Glucose,Bedside 263 gm/dL (70-110)
[2025-07-31 13:02] LABS: Anion Gap 19.2 mEq/L (5-15); Blood Urea Nitrogen 15 mg/dl (9-20); Calcium 9.1 mg/dl (8.4-10.2); Carbon Dioxide 14 mmol/L (22.0-30.0); Chloride 103 mmol/L (98-107); Creatinine Clearance Estimated 131 mL/min (50-200); Creatinine,Serum 0.80 mg/dl (0.66-1.25); Estimated Glomerular Filt Rate 119 ml/min (>60); GFR (African American) 144 ML/MIN (>60); Glucose 285 mg/dl (74-100); Potassium 4.2 mmoL/L (3.5-5.1); Sodium 132 mmol/L (136-145)
[2025-07-31 13:26] LABS: POC Glucose,Bedside 240 gm/dL (70-110)
[2025-07-31 14:26] LABS: POC Glucose,Bedside 260 gm/dL (70-110)
[2025-07-31 15:13] LABS: POC Glucose,Bedside 217 gm/dL (70-110)
[2025-07-31 15:41] LABS: POC Glucose,Bedside > 600 gm/dL (70-110)
[2025-07-31 16:25] LABS: POC Glucose,Bedside 194 gm/dL (70-110)
[2025-07-31 16:34] LABS: Anion Gap 12.0 mEq/L (5-15); Blood Urea Nitrogen 13 mg/dl (9-20); Calcium 8.5 mg/dl (8.4-10.2); Carbon Dioxide 16 mmol/L (22.0-30.0); Chloride 104 mmol/L (98-107); Creatinine Clearance Estimated 150 mL/min (50-200); Creatinine,Serum 0.70 mg/dl (0.66-1.25); Estimated Glomerular Filt Rate 139 ml/min (>60); GFR (African American) 168 ML/MIN (>60); Glucose 218 mg/dl (74-100); Potassium 4.0 mmoL/L (3.5-5.1); Sodium 128 mmol/L (136-145)
[2025-07-31 17:04] LABS: POC Glucose,Bedside 200 gm/dL (70-110)
[2025-07-31] MEDS: Dex 5% in 0.45% NaCl 1,000 ML 150 ML IV (17:04)
[2025-07-31 18:07] LABS: POC Glucose,Bedside 216 gm/dL (70-110)
[2025-07-31 19:05] LABS: POC Glucose,Bedside 247 gm/dL (70-110)
[2025-07-31 20:05] LABS: POC Glucose,Bedside 241 gm/dL (70-110)
[2025-07-31 20:42] LABS: Anion Gap 10.9 mEq/L (5-15); Blood Urea Nitrogen 12 mg/dl (9-20); Calcium 8.6 mg/dl (8.4-10.2); Carbon Dioxide 17 mmol/L (22.0-30.0); Chloride 103 mmol/L (98-107); Creatinine Clearance Estimated 175 mL/min (50-200); Creatinine,Serum 0.60 mg/dl (0.66-1.25); Estimated Glomerular Filt Rate 166 ml/min (>60); GFR (African American) 200 ML/MIN (>60); Glucose 251 mg/dl (74-100); Potassium 3.9 mmoL/L (3.5-5.1); Sodium 127 mmol/L (136-145)
[2025-07-31] MEDS: INSULIN GLARGINE 100 UNITS/ML 3ML FLEXPEN 30 UNIT SUBCUT (21:06)
[2025-07-31] MEDS: humaLOG 100 UNITS/ML 10ML VIAL (SSI) SUBCUT (21:07)
[2025-07-31 21:08] LABS: POC Glucose,Bedside 254 gm/dL (70-110)
--- NOTE | 2025-07-31 21:53 | PC.NURSE ---
Pt requested to have blood sugar checked q2h after turning off insulin gtt. Pt states this is how often he checks it at home.
[2025-07-31 22:45] LABS: POC Glucose,Bedside 249 gm/dL (70-110)
--- NOTE | 2025-07-31 23:26 | PC.NURSE ---
Pt requesting insulin at this time. Pt notified that he does not have insulin ordered until 1am and he was administered short acting insulin per SS and 30 units long acting insulin at 2100. Pt states he normally checks his sugar q2h at home. Notified pt that staff checked FSBS at 2240 and sugar was 249. Educated pt on short and long acting insulin peak times. Pt requesting to speak with MD at this time. Peggy Shaikh made aware.
[2025-08-01] VITALS (17 sets, daily range): BP systolic 100–139; BP diastolic 59–81; PULSE 74–114; RESP 12–29; TEMP 36.6–36.8; O2SAT 96–100; BMI 23.1
--- NOTE | 2025-08-01 00:23 | PC.NURSE ---
Peggy Shaikh at bedside
[2025-08-01] MEDS: humaLOG 100 UNITS/ML 10ML VIAL (SSI) SUBCUT ×4 (00:26→12:15)
[2025-08-01 00:27] LABS: POC Glucose,Bedside 356 gm/dL (70-110)
[2025-08-01 02:53] LABS: POC Glucose,Bedside 313 gm/dL (70-110)
[2025-08-01] MEDS: 0.9 % SODIUM CHLORIDE 1000ML 1,000 ML 150 ML IV (03:27)
[2025-08-01] MEDS: PIPERACILLIN/TAZO 3.375 GM in 0.9 % SODIUM CHLORIDE 50 ML IV ×2 (03:27→08:57)
[2025-08-01 05:17] LABS: POC Glucose,Bedside 267 gm/dL (70-110)
[2025-08-01 06:33] LABS: Alanine Aminotransferase 10 U/L (12-78); Albumin Level 3.1 g/dl (3.5-5.0); Albumin/Globulin Ratio 1.2 (1.1-1.8); Alkaline Phosphatase 105 U/L (38-126); Anion Gap 11.7 mEq/L (5-15); Aspartate Amino Transferase 20 U/L (17-59); Bilirubin,Total 0.4 mg/dl (0.2-1.3); Blood Urea Nitrogen 9 mg/dl (9-20); Calcium 8.4 mg/dl (8.4-10.2); Carbon Dioxide 17 mmol/L (22.0-30.0); Chloride 104 mmol/L (98-107); Creatinine Clearance Estimated 176 mL/min (50-200); Creatinine,Serum 0.60 mg/dl (0.66-1.25); Estimated Glomerular Filt Rate 166 ml/min (>60); GFR (African American) 200 ML/MIN (>60); Globulin 2.5 g/dL (1.3-3.2); Glucose 295 mg/dl (74-100); Potassium 3.7 mmoL/L (3.5-5.1); Sodium 129 mmol/L (136-145); Total Protein,Serum 5.6 g/dl (6.3-8.2)
[2025-08-01 07:38] LABS: Hematocrit 32.9 % (42.0-52.0); Hemoglobin 10.9 g/dL (14.1-18.0); Immature Granulocytes % 0.4 %; Mean Corpuscular HGB Conc 33.1 g/dL (31.8-35.4); Mean Corpuscular Hemoglobin 27.0 pg (27.0-31.2); Mean Corpuscular Volume 81.6 fl (80-94); Nucleated Red Blood Cells % 0 %; Platelet Count 367 K/mm3 (142-424); Red Blood Count 4.03 M/mm3 (4.60-6.20); Red Cell Distribution Width-SD 37.2 fL; White Blood Count 13.4 K/mm3 (4.8-10.8)
[2025-08-01 08:57] LABS: POC Glucose,Bedside 324 gm/dL (70-110)
--- NOTE | 2025-08-01 09:20 | HMH.ENDO.CON ---
History of Present Illness *Admission Date: 07/31/25 *History of present illness: Mr. Little 25-year-old male who has a past medical history significant for type 1 diabetes who presents with a chief complaint of abdominal pain, nausea, and vomiting. He is currently admitted for DKA. Insulin drip was transitioned overnight with sc insulin. BG ranging 200-300 currently. Endocrine Diabetes team was consulted for glycemic management The following diabetes history was provided: Patient -DM type: I ; Diagnosed at 4yrs of age Patient mentioned that he used insulin pump in his middle school, but had to stop after his high school due to insurance issues. He now wants to start using pump again. -DM home medications: Insulin 70/30 with ICR 1:3g for BF and 1:4g for lunch along with correction, Glargine 30 units HS -Medication compliance: poor -Hba1c- 14% -Monitoring: FSBG -BG range per patient: 180-240 (which does not coincide with his hba1c) -Episodes of hypoglycemia: No -Hx of DKA: Yes, but infrequent recently until this episode. Steroids: None Last insulin dose: on Tuesday, does not recollect if he was checking BG as he was drowsy and sick. Provider managing diabetes: PCP Daily Glucose and Insulin Total Daily Dose- on 1.8u/hr insulin drip [facility] Disclaimer: The information contained in this section may have been updated after the patient was seen, as this information can be updated by other users. Medical History (Updated 07/31/25 @ 03:48 by Edison Shaikh APRN) Hyponatremia IDDM (insulin dependent diabetes mellitus) Type 1 diabetes Sinusitis BOM (bilateral otitis media) Surgical History History of tonsillectomy Social History Smoking Status: Never smoker alcohol intake: never substance use type: denies use current occupational status: other Travel in the last 8 weeks?: None household members: family housing: house Review of Systems *Neurologic Neurologic: Reports system reviewed and no additional complaints, except as documented Exam Data for Last 24 hours Vital signs and Labs for Last 24 Hours: Temp Pulse Resp BP Pulse Ox O2 Del Method 97.9 F 91 H 17 107/63 L 98 Room Air 08/01/25 08:00 08/01/25 08:07 08/01/25 08:07 08/01/25 08:07 08/01/25 08:07 08/01/25 08:00 Laboratory Results - last 24 hr 07/31/25 00:23: POC Glucose > 600 H* 07/31/25 09:09: POC Glucose 338 H* 07/31/25 10:08: POC Glucose 331 H* 07/31/25 11:05: POC Glucose 285 H 07/31/25 12:26: Sodium 132 L, Potassium 4.2, Chloride 103, Carbon Dioxide 14 L, Anion Gap 19.2 H, BUN 15, Creatinine 0.80, Estimated Creat Clear 131, Estimated GFR 119, Est GFR ( Amer) 144, Glucose 285 H D, Calcium 9.1 07/31/25 12:35: POC Glucose 263 H 07/31/25 13:17: POC Glucose 240 H 07/31/25 13:56: POC Glucose 260 H 07/31/25 15:05: POC Glucose 217 H 07/31/25 16:01: POC Glucose 194 H 07/31/25 16:11: Sodium 128 L, Potassium 4.0, Chloride 104, Carbon Dioxide 16 L, Anion Gap 12.0, BUN 13, Creatinine 0.70, Estimated Creat Clear 150, Estimated GFR 139, Est GFR ( Amer) 168, Glucose 218 H D, Calcium 8.5 07/31/25 16:57: POC Glucose 200 H 07/31/25 17:57: POC Glucose 216 H 07/31/25 18:57: POC Glucose 247 H 07/31/25 19:58: POC Glucose 241 H 07/31/25 20:25: Sodium 127 L, Potassium 3.9, Chloride 103, Carbon Dioxide 17 L, Anion Gap 10.9, BUN 12, Creatinine 0.60 L, Estimated Creat Clear 175, Estimated GFR 166, Est GFR ( Amer) 200, Glucose 251 H, Calcium 8.6 07/31/25 21:01: POC Glucose 254 H 07/31/25 22:36: POC Glucose 249 H 08/01/25 00:21: POC Glucose 356 H* 08/01/25 02:46: POC Glucose 313 H* 08/01/25 05:10: POC Glucose 267 H 08/01/25 05:11: WBC 13.4 H D, RBC 4.03 L D, Hgb 10.9 L, Hct 32.9 L, MCV 81.6, MCH 27.0, MCHC 33.1, RDW 12.4, Plt Count 367 D, MPV 9.5, Neut % (Auto) 68.2, Lymph % (Auto) 25.6, [place] % (Auto) 4.6, Eos % (Auto) 0.9, Baso % (Auto) 0.3, Neut # (Auto) 9.1 H, Lymph # (Auto) 3.4, [place] # (Auto) 0.6, Eos # (Auto) 0.1, Baso # (Auto) 0.0, Sodium 129 L, Potassium 3.7, Chloride 104, Carbon Dioxide 17 L, Anion Gap 11.7, BUN 9, Creatinine 0.60 L, Estimated Creat Clear 176, Estimated GFR 166, Est GFR ( Amer) 200, Glucose 295 H, Calcium 8.4, Total Bilirubin 0.4, AST 20, ALT 10 L D, Alkaline Phosphatase 105, Total Protein 5.6 L D, Albumin 3.1 L D, Globulin 2.5, Albumin/Globulin Ratio 1.2 08/01/25 08:51: POC Glucose 324 H* I & O for Last 24 hours: Intake & Output 07/29/25 07/30/25 07/31/25 08/01/25 23:59 23:59 23:59 23:59 Intake Total 7690.950 / 7690.950 1410 / 1410 Output Total 4300 / 4300 900 / 900 Balance 3390.950 / 3390.950 510 / 510 Weight 143 lb 6.4 oz 144 lb 3.2 oz Microbiology Reports for the Last 24 Hours: Microbiology 07/31/25 00:50 Blood Blood Culture - Preliminary NO GROWTH AFTER 24 HOURS 07/31/25 00:35 Blood Blood Culture - Preliminary NO GROWTH AFTER 24 HOURS Constitutional Constitutional: no acute distress *Routine HEENT Exam Head: Present normocephalic Eye: Present EOMI and PERRL ENT: Present mucous membranes moist *Routine Neck Exam Neck: Present supple; Absent lymphadenopathy *Routine Respiratory Exam Respiratory: Present CTA bilaterally *Routine Cardiovascular Exam Cardiovascular: Present RRR *Routine Abdominal Exam Abdominal: Present soft and normoactive bowel sounds; Absent tenderness *Routine Extremities Exam Extremities: Absent cyanosis, clubbing or edema *Routine Skin Exam Skin: Present warm; Absent rash *Routine Neurological Exam Neurological: Present alert and oriented X3 Meds Home Medications and Allergies Home Medications ?Medication ?Instructions ?Recorded ?Confirmed ?Type inhalational spacing device ##1 12/08/19 06/10/25 Rx blood sugar diagnostic #10 ea 02/07/20 06/10/25 History blood sugar diagnostic (Accu-Chek #10 ea 02/07/20 06/10/25 Rx Guide test strips) blood-glucose,resource protection specialist,cont #1 ea 07/16/20 06/10/25 Rx (Dexcom G6 Pvc Monitor) lancets 30 gauge (OneTouch Delica #100 ea 10/15/20 06/10/25 Rx Plus Lancet) pen needle, diabetic 31 gauge x #1,200 ea 10/17/20 06/10/25 Rx 5/16 (Comfort EZ Pen [place]) blood-glucose sensor (Dexcom G6 #3 ea 08/31/21 06/10/25 Rx Sensor device) blood-glucose transmitter (Dexcom #1 ea 08/31/21 06/10/25 Rx G6 Transmitter device) insulin NPH-regular 70-30 U-100 0 unit SQ DIRECTED 07/31/25 07/31/25 History insulin 100 unit/mL subcutaneous pen insulin glargine 100 unit/mL (3 30 unit SQ DAILY 07/31/25 07/31/25 History mL) subcutaneous pen (Lantus Solostar U-100 Insulin) New Prescriptions to Start Prescriptions: Allergies Allergy/AdvReac Type Severity Reaction Status Date / Time No Known Allergies Allergy Verified 06/10/25 13:00 Assessment and Plan *Assessment and plan (1) DKA (diabetic ketoacidosis): Status: Acute Qualifiers: Diabetes mellitus complication detail: without coma Diabetes mellitus type: other specified (including JENY) Qualified Code(s): E13.10 - Other specified diabetes mellitus with ketoacidosis without coma Category: Medical Code(s): E11.10 - Type 2 diabetes mellitus with ketoacidosis without coma (2) Hyperglycemia due to type 1 diabetes mellitus: Status: Acute Category: Medical Code(s): E10.65 - Type 1 diabetes mellitus with hyperglycemia Plan - Mr. Little a 25-year-old male with poorly controlled T1DM currently admitted for DKA. - Transitioned off insulin drip last night Current Hospital Regimen: - Basal: Increase glargine to 36 units HS - Bolus: Start 12 lispro TID with meals - Correction: Standard 1u:50 for BG> 150 lispro TID with meals and nightly - Recommend checking phosphorus levels for re-feeding syndrome and replete electrolytes as needed. Discharge plan- With above insulin regimen 1. Glargine 36 units 2. Lispro 12 units TID, with max TTD of 50 units daily 3. Hold insulin 70/30 4. Dexcom G7 sensors and resource protection specialist to monitor blood sugars. 5. Follow up patient in 1-2 weeks outpatient Results Labs 08/01/25 05:11 08/01/25 05:11 labs: Diabetes panel 07/31/25 07/31/25 07/31/25 12:26 16:11 20:25 Creatinine 0.80 0.70 0.60 L Glucose 285 H D 218 H D 251 H 08/01/25 05:11 Creatinine 0.60 L Glucose 295 H Calcium panel 07/31/25 07/31/25 07/31/25 12:26 16:11 20:25 Calcium 9.1 8.5 8.6 Alkaline Phosphatase Albumin 08/01/25 05:11 Calcium 8.4 Alkaline Phosphatase 105 Albumin 3.1 L D Comprehensive Metabolic Panel 07/31/25 07/31/25 07/31/25 12:26 16:11 20:25 Sodium 132 L 128 L 127 L Potassium 4.2 4.0 3.9 Chloride 103 104 103 Carbon Dioxide 14 L 16 L 17 L Anion Gap 19.2 H 12.0 10.9 BUN 15 13 12 Creatinine 0.80 0.70 0.60 L Estimated Creat Clear 131 150 175 Est GFR ( Amer) 144 168 200 Glucose 285 H D 218 H D 251 H AST ALT Alkaline Phosphatase Total Protein Albumin Globulin Albumin/Globulin Ratio 08/01/25 05:11 Sodium 129 L Potassium 3.7 Chloride 104 Carbon Dioxide 17 L Anion Gap 11.7 BUN 9 Creatinine 0.60 L Estimated Creat Clear 176 Est GFR ( Amer) 200 Glucose 295 H AST 20 ALT 10 L D Alkaline Phosphatase 105 Total Protein 5.6 L D Albumin 3.1 L D Globulin 2.5 Albumin/Globulin Ratio 1.2
[2025-08-01] MEDS: DOXYCYCLINE HYCL 100 MG TABLET PO (09:50)
[2025-08-01] MEDS: humaLOG 100 UNITS/ML 10ML VIAL (SSI) 12 UNIT SUBCUT (12:16)
[2025-08-01 12:17] LABS: POC Glucose,Bedside 214 gm/dL (70-110)
[2025-08-01 13:41] LABS: POC Glucose,Bedside 192 gm/dL (70-110)
[2025-08-01 13:51] LABS: POC Glucose,Bedside 216 gm/dL (70-110)
--- NOTE | 2025-08-01 14:48 | EXP.DC.SUM ---
General Admission date:: 07/31/25 HPI HPI HPI: Mr. Little 25-year-old male who has a past medical history significant for type 1 diabetes who presents with a chief complaint of abdominal pain, nausea, and vomiting. He is currently admitted for DKA. Insulin drip was transitioned overnight with sc insulin. BG ranging 200-300 currently. Endocrine Diabetes team was consulted for glycemic management The following diabetes history was provided: Patient -DM type: I ; Diagnosed at 4yrs of age Patient mentioned that he used insulin pump in his middle school, but had to stop after his high school due to insurance issues. He now wants to start using pump again. -DM home medications: Insulin 70/30 with ICR 1:3g for BF and 1:4g for lunch along with correction, Glargine 30 units HS -Medication compliance: poor -Hba1c- 14% -Monitoring: FSBG -BG range per patient: 180-240 (which does not coincide with his hba1c) -Episodes of hypoglycemia: No -Hx of DKA: Yes, but infrequent recently until this episode. Steroids: None Last insulin dose: on Tuesday, does not recollect if he was checking BG as he was drowsy and sick. Provider managing diabetes: PCP Daily Glucose and Insulin Total Daily Dose- on 1.8u/hr insulin drip Hospital Course Hospital Course Hospital Course: Mikhail Madera is a 31-year-old male with a medical history significant for type 1 diabetes who presented with, weakness and admitted for DKA, community-acquired pneumonia. #Diabetic ketoacidosis #Type 1 diabetes ? Patient presented with nausea/vomiting, abdominal pain. ? Initial blood sugar 967, AGAP 46, bicarb less than 5, VBG pH 7.06, with ketonuria consistent with DKA. ? Clinically improved with IV fluid resuscitation and insulin drip. Feels much better on day of discharge. Alert and oriented x 4. ? Patient states he has been adherent to his insulin, has had issues with affording it in the past but no longer. ? Hemoglobin A1c greater than 14%, indicating his home regimen is inadequate. Has been taking Lantus 30 units nightly. ? Endocrinology consulted, recommended increasing Lantus to 36 units nightly and starting mealtime lispro 12 units. ? CAP might have contributed to DKA. See below. ? Discharged with above insulin regimen, will follow-up with endocrinology within 1 week. #Sepsis #Community-acquired pneumonia ? Initial CXR revealed left lower lobe opacity, may be from aspiration. Presented with tachycardia, leukocytosis. ? Treated with vancomycin, Zosyn. Feeling better, on room air. ? Discharged with Augmentin 500 mg 3 times daily for 4 more days. Total time spent on discharge: 35 minutes on chart review, counseling, documentation, and direct care with patient. Exam Data for Last 24 hours Vital signs and Labs for Last 24 Hours: Temp Pulse Resp BP Pulse Ox O2 Del Method 97.9 F 107 H 17 139/81 98 Room Air 08/01/25 12:00 08/01/25 12:01 08/01/25 12:01 08/01/25 12:01 08/01/25 12:01 08/01/25 13:00 Laboratory Results - last 24 hr 07/31/25 00:23: POC Glucose > 600 H* 07/31/25 15:05: POC Glucose 217 H 07/31/25 16:01: POC Glucose 194 H 07/31/25 16:11: Sodium 128 L, Potassium 4.0, Chloride 104, Carbon Dioxide 16 L, Anion Gap 12.0, BUN 13, Creatinine 0.70, Estimated Creat Clear 150, Estimated GFR 139, Est GFR ( Amer) 168, Glucose 218 H D, Calcium 8.5 07/31/25 16:57: POC Glucose 200 H 07/31/25 17:57: POC Glucose 216 H 07/31/25 17:57: POC Glucose 216 H 07/31/25 18:57: POC Glucose 247 H 07/31/25 19:58: POC Glucose 241 H 07/31/25 20:25: Sodium 127 L, Potassium 3.9, Chloride 103, Carbon Dioxide 17 L, Anion Gap 10.9, BUN 12, Creatinine 0.60 L, Estimated Creat Clear 175, Estimated GFR 166, Est GFR ( Amer) 200, Glucose 251 H, Calcium 8.6 07/31/25 21:01: POC Glucose 254 H 07/31/25 22:36: POC Glucose 249 H 08/01/25 00:21: POC Glucose 356 H* 08/01/25 02:46: POC Glucose 313 H* 08/01/25 05:10: POC Glucose 267 H 08/01/25 05:11: WBC 13.4 H D, RBC 4.03 L D, Hgb 10.9 L, Hct 32.9 L, MCV 81.6, MCH 27.0, MCHC 33.1, RDW 12.4, Plt Count 367 D, MPV 9.5, Neut % (Auto) 68.2, Lymph % (Auto) 25.6, [place] % (Auto) 4.6, Eos % (Auto) 0.9, Baso % (Auto) 0.3, Neut # (Auto) 9.1 H, Lymph # (Auto) 3.4, [place] # (Auto) 0.6, Eos # (Auto) 0.1, Baso # (Auto) 0.0, Sodium 129 L, Potassium 3.7, Chloride 104, Carbon Dioxide 17 L, Anion Gap 11.7, BUN 9, Creatinine 0.60 L, Estimated Creat Clear 176, Estimated GFR 166, Est GFR ( Amer) 200, Glucose 295 H, Calcium 8.4, Total Bilirubin 0.4, AST 20, ALT 10 L D, Alkaline Phosphatase 105, Total Protein 5.6 L D, Albumin 3.1 L D, Globulin 2.5, Albumin/Globulin Ratio 1.2 08/01/25 08:51: POC Glucose 324 H* 08/01/25 12:10: POC Glucose 214 H 08/01/25 13:34: POC Glucose 192 H I & O for Last 24 hours: Intake & Output 07/29/25 07/30/25 07/31/25 08/01/25 23:59 23:59 23:59 23:59 Intake Total 7690.950 / 7690.950 2820 / 2820 Output Total 4300 / 4300 1800 / 1800 Balance 3390.950 / 3390.950 1020 / 1020 Weight 65.045 kg 65.408 kg Microbiology Reports for the Last 24 Hours: Microbiology 07/31/25 02:46 Urethra Urine Culture - Final No growth. 07/31/25 00:50 Blood Blood Culture - Preliminary NO GROWTH AFTER 24 HOURS 07/31/25 00:35 Blood Blood Culture - Preliminary NO GROWTH AFTER 24 HOURS Constitutional Constitutional: no acute distress *Routine HEENT Exam Head: Present normocephalic Eye: Present EOMI and PERRL ENT: Present mucous membranes moist *Routine Neck Exam Neck: Present supple; Absent lymphadenopathy *Routine Respiratory Exam Respiratory: Present CTA bilaterally *Routine Cardiovascular Exam Cardiovascular: Present RRR *Routine Abdominal Exam Abdominal: Present soft and normoactive bowel sounds; Absent tenderness *Routine Extremities Exam Extremities: Absent cyanosis, clubbing or edema *Routine Skin Exam Skin: Present warm; Absent rash *Routine Neurological Exam Neurological: Present alert and oriented X3 Results Data Completed and Pending Labs on day of discharge: Labs from last 24 hours 08/01/25 08/01/25 08/01/25 13:34 12:10 08:51 WBC RBC Hgb Hct MCV MCH MCHC RDW Plt Count MPV Neut % (Auto) Lymph % (Auto) [place] % (Auto) Eos % (Auto) Baso % (Auto) Neut # (Auto) Lymph # (Auto) [place] # (Auto) Eos # (Auto) Baso # (Auto) Sodium Potassium Chloride Carbon Dioxide Anion Gap BUN Creatinine Estimated Creat Clear Estimated GFR Est GFR ( Amer) Glucose POC Glucose 192 H 214 H 324 H* Calcium Total Bilirubin AST ALT Alkaline Phosphatase Total Protein Albumin Globulin Albumin/Globulin Ratio 08/01/25 08/01/25 08/01/25 05:11 05:10 02:46 WBC 13.4 H D RBC 4.03 L D Hgb 10.9 L Hct 32.9 L MCV 81.6 MCH 27.0 MCHC 33.1 RDW 12.4 Plt Count 367 D MPV 9.5 Neut % (Auto) 68.2 Lymph % (Auto) 25.6 [place] % (Auto) 4.6 Eos % (Auto) 0.9 Baso % (Auto) 0.3 Neut # (Auto) 9.1 H Lymph # (Auto) 3.4 [place] # (Auto) 0.6 Eos # (Auto) 0.1 Baso # (Auto) 0.0 Sodium 129 L Potassium 3.7 Chloride 104 Carbon Dioxide 17 L Anion Gap 11.7 BUN 9 Creatinine 0.60 L Estimated Creat Clear 176 Estimated GFR 166 Est GFR ( Amer) 200 Glucose 295 H POC Glucose 267 H 313 H* Calcium 8.4 Total Bilirubin 0.4 AST 20 ALT 10 L D Alkaline Phosphatase 105 Total Protein 5.6 L D Albumin 3.1 L D Globulin 2.5 Albumin/Globulin Ratio 1.2 08/01/25 07/31/25 07/31/25 00:21 22:36 21:01 WBC RBC Hgb Hct MCV MCH MCHC RDW Plt Count MPV Neut % (Auto) Lymph % (Auto) [place] % (Auto) Eos % (Auto) Baso % (Auto) Neut # (Auto) Lymph # (Auto) [place] # (Auto) Eos # (Auto) Baso # (Auto) Sodium Potassium Chloride Carbon Dioxide Anion Gap BUN Creatinine Estimated Creat Clear Estimated GFR Est GFR ( Amer) Glucose POC Glucose 356 H* 249 H 254 H Calcium Total Bilirubin AST ALT Alkaline Phosphatase Total Protein Albumin Globulin Albumin/Globulin Ratio 07/31/25 07/31/25 07/31/25 20:25 19:58 18:57 WBC RBC Hgb Hct MCV MCH MCHC RDW Plt Count MPV Neut % (Auto) Lymph % (Auto) [place] % (Auto) Eos % (Auto) Baso % (Auto) Neut # (Auto) Lymph # (Auto) [place] # (Auto) Eos # (Auto) Baso # (Auto) Sodium 127 L Potassium 3.9 Chloride 103 Carbon Dioxide 17 L Anion Gap 10.9 BUN 12 Creatinine 0.60 L Estimated Creat Clear 175 Estimated GFR 166 Est GFR ( Amer) 200 Glucose 251 H POC Glucose 241 H 247 H Calcium 8.6 Total Bilirubin AST ALT Alkaline Phosphatase Total Protein Albumin Globulin Albumin/Globulin Ratio 07/31/25 07/31/25 07/31/25 17:57 17:57 16:57 WBC RBC Hgb Hct MCV MCH MCHC RDW Plt Count MPV Neut % (Auto) Lymph % (Auto) [place] % (Auto) Eos % (Auto) Baso % (Auto) Neut # (Auto) Lymph # (Auto) [place] # (Auto) Eos # (Auto) Baso # (Auto) Sodium Potassium Chloride Carbon Dioxide Anion Gap BUN Creatinine Estimated Creat Clear Estimated GFR Est GFR ( Amer) Glucose POC Glucose 216 H 216 H 200 H Calcium Total Bilirubin AST ALT Alkaline Phosphatase Total Protein Albumin Globulin Albumin/Globulin Ratio 07/31/25 07/31/25 07/31/25 16:11 16:01 15:05 WBC RBC Hgb Hct MCV MCH MCHC RDW Plt Count MPV Neut % (Auto) Lymph % (Auto) [place] % (Auto) Eos % (Auto) Baso % (Auto) Neut # (Auto) Lymph # (Auto) [place] # (Auto) Eos # (Auto) Baso # (Auto) Sodium 128 L Potassium 4.0 Chloride 104 Carbon Dioxide 16 L Anion Gap 12.0 BUN 13 Creatinine 0.70 Estimated Creat Clear 150 Estimated GFR 139 Est GFR ( Amer) 168 Glucose 218 H D POC Glucose 194 H 217 H Calcium 8.5 Total Bilirubin AST ALT Alkaline Phosphatase Total Protein Albumin Globulin Albumin/Globulin Ratio 07/31/25 00:23 WBC RBC Hgb Hct MCV MCH MCHC RDW Plt Count MPV Neut % (Auto) Lymph % (Auto) [place] % (Auto) Eos % (Auto) Baso % (Auto) Neut # (Auto) Lymph # (Auto) [place] # (Auto) Eos # (Auto) Baso # (Auto) Sodium Potassium Chloride Carbon Dioxide Anion Gap BUN Creatinine Estimated Creat Clear Estimated GFR Est GFR ( Amer) Glucose POC Glucose > 600 H* Calcium Total Bilirubin AST ALT Alkaline Phosphatase Total Protein Albumin Globulin Albumin/Globulin Ratio Preliminary micro results at discharge 07/31/25 00:50 Blood Culture - Preliminary Blood NO GROWTH AFTER 24 HOURS 07/31/25 00:35 Blood Culture - Preliminary Blood NO GROWTH AFTER 24 HOURS DS: Diagnosis Discharge Diagnosis (1) DKA (diabetic ketoacidosis): Status: Acute Code(s): E11.10 - Type 2 diabetes mellitus with ketoacidosis without coma Qualifiers: Diabetes mellitus complication detail: without coma Diabetes mellitus type: other specified (including JENY) Qualified Code(s): E13.10 - Other specified diabetes mellitus with ketoacidosis without coma (2) Hyperglycemia due to type 1 diabetes mellitus: Status: Acute Code(s): E10.65 - Type 1 diabetes mellitus with hyperglycemia Meds Home Medications and Allergies Home Medications ?Medication ?Instructions ?Recorded ?Confirmed ?Type blood sugar diagnostic #10 ea 02/07/20 06/10/25 History blood sugar diagnostic (Accu-Chek #10 ea 02/07/20 06/10/25 Rx Guide test strips) blood-glucose,traditional chinese herbalist,cont #1 ea 07/16/20 06/10/25 Rx (Dexcom G6 Mold Filler) blood-glucose sensor (Dexcom G6 #3 ea 08/31/21 06/10/25 Rx Sensor device) blood-glucose transmitter (Dexcom #1 ea 08/31/21 06/10/25 Rx G6 Transmitter device) amoxicillin 500 mg-potassium 1 tab PO TID 4 days #12 tabs 08/01/25 Rx clavulanate 125 mg tablet (Augmentin) insulin glargine 100 unit/mL (3 36 unit (0.36 mL) SQ HS #15 mL 08/01/25 Rx mL) subcutaneous pen (Lantus Solostar U-100 Insulin) insulin lispro 100 unit/mL 12 unit (0.12 mL) SQ TIDWMEAL 30 08/01/25 Rx subcutaneous solution (Humalog days #10.8 mL U-100 Insulin) New Prescriptions to Start Prescriptions: amoxicillin-pot clavulanate [Augmentin] Hayden Domínguez insulin glargine [Lantus Solostar U-100 Insulin] Hayden Domínguez insulin lispro [Humalog U-100 Insulin] Hayden Domínguez Allergies Allergy/AdvReac Type Severity Reaction Status Date / Time No Known Allergies Allergy Verified 06/10/25 13:00 Discharge Plan Disposition Patient Disposition: Home, Self-Care Condition: Fair Discharge Order Discharge Orders: Discharge Order (Routine); Ordered 08/01/25 Ordered By: Hayden Domínguez Follow up Plan Follow up with: Chidi Ozuna APRN [Primary Care Provider, Medical] - 08/20/25 9:00 am Edvin Jeffries MD [Staff Physician, Endocrinology] - 08/06/25 2:30 pm Prescriptions/Medication Reconciliation: New insulin glargine [Lantus Solostar U-100 Insulin] 100 unit/mL (3 mL) Insulin Pen 36 unit SQ HS Qty: 15 0RF insulin lispro [Humalog U-100 Insulin] 100 unit/mL Solution 12 unit SQ TIDWMEAL 30 Days Qty: 10.8 0RF amoxicillin-pot clavulanate [Augmentin] 500-125 mg tablet 1 tab PO TID 4 Days Qty: 12 0RF Continued (DME) blood sugar diagnostic Strip See Rx Instructions .ROUTE .MEDSUPPLY Qty: 10 Patient Comments: USE TO test 4 TO 6 times PER DAY DIRECTED Rx Instructions: As directed (DME) blood sugar diagnostic [Accu-Chek Guide test strips] Strip See Rx Instructions .ROUTE .MEDSUPPLY Qty: 10 8RF Rx Instructions: As directed (DME) Dexcom G6 Transmitter Device See Rx Instructions .ROUTE .COMPLEX Qty: 1 1RF Dose Instruction: USE DIRECTED TO TEST BLOOD GLUCOSE LEVEL Rx Instructions: USE DIRECTED TO TEST BLOOD GLUCOSE LEVEL (DME) Dexcom G6 Sensor Device See Rx Instructions .ROUTE .COMPLEX Qty: 3 0RF Dose Instruction: USE DIRECTED TO TEST BLOOD GLUCOSE LEVEL Rx Instructions: USE DIRECTED TO TEST BLOOD GLUCOSE LEVEL (DME) Dexcom G6 Mold Filler Misc See Rx Instructions .ROUTE .MEDSUPPLY Qty: 1 0RF Rx Instructions: As directed Discontinued (DME) lancets [OneTouch Delica Plus Lancet] 30 gauge misc See Rx Instructions .ROUTE .COMPLEX Qty: 100 5RF Dose Instruction: USE TO test blood DIRECTED Rx Instructions: USE TO test blood DIRECTED (DME) pen needle, diabetic [Comfort EZ Pen [place]] 31 gauge x 5/16 needle See Rx Instructions .ROUTE .MEDSUPPLY Qty: 1200 0RF Rx Instructions: As directed (DME) inhalational spacing device 1 EACH spacer 1 each MC Q4-6H 14 Days Qty: 1 0RF Humulin 70/30 Insulin Pen 100 unit/mL (70-30) Insulin Pen 0 unit SQ DIRECTED Rx Instructions: PER SLIDING SCALE insulin glargine [Lantus Solostar U-100 Insulin] 100 unit/mL (3 mL) Insulin Pen 30 unit SQ DAILY Problem Reconciliation Problems Reviewed?: Yes Patient Discharge Instructions Patient Instructions: Type 1 Diabetes, DI for Hyperkalemia, DI for Nausea in Adults, DI for Diabetic Ketoacidosis Print Language: Bahamian Providers Primary Care Provider: Chidi Ozuna Admit Provider: Hayden Domínguez Attending Provider: Hayden Domínguez
--- NOTE | 2025-08-05 11:29 | SW/DCPLANNER ---
Spoke with patient on the phone. Patient stated that he is doing good. Patient stated that he is aware of his upcoming appointments. Patient stated that he was able to get his new medicine picked up from the pharmacy and stated that he has no insurance and had to pay it out of his pocket. Patient stated that he has no concerns or questions at this time. Josefina Patel
== END 2025-08-01 15:55 | disposition home or self-care (01) ==
LOC: ER 02:56 → ICU 03:18
PROVIDERS: Nurse Practitioner Family; Admitting Provider Student in an Organized Health Care Education/Training Program; Emergency Provider Emergency Medicine; PCP Nurse Practitioner Family; Visit Provider Student in an Organized Health Care Education/Training Program
DX: E10.10 Type 1 diabetes mellitus with ketoacidosis without coma (principal); A41.9 Sepsis, unspecified organism; J69.0 Pneumonitis due to inhalation of food and vomit; E87.1 Hypo-osmolality and hyponatremia; N13.30 Unspecified hydronephrosis; Z79.4 Long term (current) use of insulin; Z91.148 Patient's other noncompliance with medication regimen for other reason; E87.5 Hyperkalemia; E86.0 Dehydration; R33.9 Retention of urine, unspecified; D75.839 Thrombocytosis, unspecified; E83.39 Other disorders of phosphorus metabolism; E83.41 Hypermagnesemia; Z79.82 Long term (current) use of aspirin
CPT/HCPCS: 0223U; 36415; 71045; 71275; 74177; 80048; 80053; 80061; 81001; 82009; 82397; 82803; 82947; 82962; 83036; 83605; 83690; 83735; 84100; 85007; 85025; 86803; 87040; 87086; 87389; 87430; 93005; 99285; J0612; J1650; J2543; J2550; J3375; J7030; Q9967